=== PATIENT | male | born 1960 | race Caucasian/White ===

== ENCOUNTER 2024-01-17 17:54 | Inpatient (IN) | payer OTHER, SELFPAY ==
[2024-01-17] VITALS (23 sets, daily range): BP systolic 87–138; BP diastolic 52–92; BMI 31.1
--- NOTE | 2024-01-17 11:26 | ED.GENMED ---
History of Present Illness
<Kiana John PA-C - Last Filed: 01/17/24 15:13>
General
Chief Complaint: Skin Problem
Source: patient and records
Exam Limitations: none
Time Seen by Provider: 01/17/24 11:24
Nursing documentation reviewed up to this point in time: agreed with
Travel History
Have you had any contact with someone who has COVID-19?: No
Do you have any symptoms of coronavirus? Fever > 100 degrees, chills, cough, shortness of breath, sore throat, loss of taste or smell, muscle aches, or headache?: No
History of Present Illness
History of Present Illness:
63-year-old male with past medical history of deafness with cochlear implant in place presenting emergency department today with a boil on his buttocks for the past 7 days. Patient states that this past weekend, he felt a lot of pain on his
buttocks and noticed a large boil. Patient states that the pain has continued to worsen until the boil ruptured. Patient states that he started to have a lot of drainage from abscess. Patient states that he subsequently started using sitz bath to
help with his symptoms. He currently has no pain, but he does note decreased appetite and generalized fatigue. He denies any fevers or chills. Patient went to go see urgent care today and was evaluated by [facility] and was sent to us
for further evaluation considering the presence of necrotic tissue. Patient denies abdominal pain, notes normal bowel movements. Patient states that he has no other medical hx, is not a diabetic, and takes no medications daily.
Past History
<Kiana John PA-C - Last Filed: 01/17/24 15:13>
Past History
ED Past Medical History: None
ED Past Surgical History: Other (Cochlear implant)
Social History
Tobacco: Non-smoker
Alcohol: None
Drug: None
Personal:
Living: with family
Review of Systems
<Kiana John PA-C - Last Filed: 01/17/24 15:13>
Review of Systems
All Other Systems: ROS reviewed and negative except as documented in HPI and ROS
Phy Exam
<Kiana John PA-C - Last Filed: 01/17/24 15:13>
Physical Exam
Physical Exam:
Vitals: Patient is tachycardic, afebrile
General: Patient appears well, no acute distress
Skin: Large foul smelling open abscess noted to left gluteal cleft with surrounding erythema and overlying fatty necrotic tissue, active drainage of serosanguineous fluid noted, no active bleeding
Head: Normocephalic, atraumatic, cochlear implant noted
Cardiac: Regular rate and rhythm, no murmurs
Pulm: Normal respiratory effort, no wheezes, rales, or rhonchi
Abdomen: No abdominal tenderness
Genitourinary: Please see skin exam above. In addition, no gil-rectal masses or lesions, no rectal bleeding
Musculoskeletal: No tenderness to palpation of the b/l hip joints.
Neuro: CN II-XII intact. No focal neurologic deficits.
Course
<Kiana John PA-C - Last Filed: 01/17/24 15:13>
Orders/Labs/Results
Orders:
Orders
01/17/24 11:40
Bedside Glucose- Treatment ONCE
01/17/24 11:45
CT Pelvis With Iv Contrast Urgent
Comment:
Reason For Exam: tracking gluteal wound
01/17/24 12:10
C-Reactive Protein Urgent
Comment: ADD ON PER [id number]
CBC/With Diff [Complete Blood Count/With Diff] Stat
Comprehensive Metabolic Panel Urgent
Erythrocyte Sed Rate Stat
Manual Differential Stat
Wound Culture [Wound/Abscess/Other Culture] Urgent
KING Source: Abscess
Specimen Description:
Date Specimen was Collected: 01/17/24
Time Specimen was Collected: 11:42
01/17/24 13:16
Piperacillin/Tazo 4.5 Gram [Zosyn] 4.5 gram in 100 ml IV NOW
01/17/24 14:20
Vancomycin [Vancocin] 2,000 mg 0.9% Sodium Chloride 500 ml [Nss] 500 ml IV NOW
01/17/24 14:34
ColoRectal Surgery Consult Urgent
Consulting Provider: aDniel Jones
Was physician already notified: Yes
01/17/24 14:39
Blood Culture Q30M
KING Source: Blood/Venous
Specimen Description:
Blood Culture Q30M
KING Source: Blood/Venous
Specimen Description:
Abnormal Lab Results
01/17/24
12:10
WBC 24.7 H 10^3/uL
(4.8-10.8)
MPV 10.8 H fL
(7.4-10.4)
Abs Neuts (Manual) 22.4 H 10^3/uL
(1.4-6.5)
Segmented Neutrophils 80 H %
(42-75)
Band Neutrophils 11 H %
(0-3)
Lymphocytes (Manual) 1 L %
(20-51)
ESR 32 H mm/hour
(0-20)
Sodium 124 L mmol/L
(135-145)
Chloride 91 L mmol/L
(98-107)
Carbon Dioxide 21 L mmol/L
(22-30)
BUN 23 H mg/dl
(9-20)
Glucose 518 H* mg/dl
(70-99)
Alkaline Phosphatase 215 H U/L
(38-126)
C-Reactive Protein > 270.00 H mg/L
(0.0-10.00)
Total Protein 6.1 L g/dl
(6.3-8.2)
Albumin 3.3 L g/dl
(3.5-5.0)
01/17/24 12:10
01/17/24 12:10
Vital Signs
Initial and Last Documented VS:
Initial Vital Signs
Temp Pulse Resp BP Pulse Ox
98.5 F 120 18 132/92 96
01/17/24 10:12 01/17/24 10:12 01/17/24 10:12 01/17/24 10:12 01/17/24 10:12
Last Documented Vital Signs
Temp Pulse Resp BP Pulse Ox
98.5 F 120 18 132/92 96
01/17/24 10:12 01/17/24 10:12 01/17/24 10:12 01/17/24 10:12 01/17/24 10:12
<Robert Cardoso, DO - Last Filed: 01/17/24 14:10>
Orders/Labs/Results
Orders:
Orders
01/17/24 11:40
Bedside Glucose- Treatment ONCE
01/17/24 11:45
CT Pelvis With Iv Contrast Urgent
Comment:
Reason For Exam: tracking gluteal wound
01/17/24 12:10
C-Reactive Protein Urgent
Comment: ADD ON PER [id number]
CBC/With Diff [Complete Blood Count/With Diff] Stat
Comprehensive Metabolic Panel Urgent
Erythrocyte Sed Rate Stat
Manual Differential Stat
Wound Culture [Wound/Abscess/Other Culture] Urgent
KING Source: Abscess
Specimen Description:
Date Specimen was Collected: 01/17/24
Time Specimen was Collected: 11:42
01/17/24 13:16
Piperacillin/Tazo 4.5 Gram [Zosyn] 4.5 gram in 100 ml IV NOW
01/17/24 14:20
Vancomycin [Vancocin] 2,000 mg 0.9% Sodium Chloride 500 ml [Nss] 500 ml IV NOW
01/17/24 14:34
ColoRectal Surgery Consult Urgent
Consulting Provider: Daniel Jones
Was physician already notified: Yes
01/17/24 14:39
Blood Culture Q30M
KING Source: Blood/Venous
Specimen Description:
Blood Culture Q30M
KING Source: Blood/Venous
Specimen Description:
Abnormal Lab Results
01/17/24
12:10
WBC 24.7 H 10^3/uL
(4.8-10.8)
MPV 10.8 H fL
(7.4-10.4)
Abs Neuts (Manual) 22.4 H 10^3/uL
(1.4-6.5)
Segmented Neutrophils 80 H %
(42-75)
Band Neutrophils 11 H %
(0-3)
Lymphocytes (Manual) 1 L %
(20-51)
ESR 32 H mm/hour
(0-20)
Sodium 124 L mmol/L
(135-145)
Chloride 91 L mmol/L
(98-107)
Carbon Dioxide 21 L mmol/L
(22-30)
BUN 23 H mg/dl
(9-20)
Glucose 518 H* mg/dl
(70-99)
Alkaline Phosphatase 215 H U/L
(38-126)
C-Reactive Protein > 270.00 H mg/L
(0.0-10.00)
Total Protein 6.1 L g/dl
(6.3-8.2)
Albumin 3.3 L g/dl
(3.5-5.0)
01/17/24 12:10
01/17/24 12:10
Vital Signs
Initial and Last Documented VS:
Initial Vital Signs
Temp Pulse Resp BP Pulse Ox
98.5 F 120 18 132/92 96
01/17/24 10:12 01/17/24 10:12 01/17/24 10:12 01/17/24 10:12 01/17/24 10:12
Last Documented Vital Signs
Temp Pulse Resp BP Pulse Ox
98.5 F 120 18 132/92 96
01/17/24 10:12 01/17/24 10:12 01/17/24 10:12 01/17/24 10:12 01/17/24 10:12
<Kiana John PA-C - Last Filed: 01/17/24 15:13>
MDM/Problems Addressed
Differential Diagnosis Includes:
Cellulitis, folliculitis, gluteal abscess, anal fistula, Shilpa's gangrene, necrotizing fasciitis
MDM/Problems Addressed:
Rectal abscess
Chronic conditions affecting care:
deafness
Acute Exacerbation and/or Progression of Chronic Illness:
deafness
<Kiana John PA-C - Last Filed: 01/17/24 15:13>
*Pulse Oximetry
Patient hypoxic: no
*Critical Care Note
Total Time (30-74mins, 75-104mins- exclusive of procedures): Not Applicable
Data Reviewed
Review of Other/Old Records Reveals: Records (Reviewed ER physician documentation from 04/05/21) and Discharge Summary (no discharge summaries in [facility] to review)
Source: patient and records
Prescriptions/Medications Considered But Not Given:
Consider medication for pain, but patient comfortable at this time
<Kiana John PA-C - Last Filed: 01/17/24 15:13>
Patient Management
Escalation/DeEscalation of care consider admission/obs:
63-year-old male with past medical history of deafness with cochlear implant in place presenting emergency department today with a boil on his buttocks for the past 7 days. Patient states that the wound opened up and is no longer painful. On
physical exam, there is a large abscess to the left medial calf with surrounding erythema, overlying/of necrotic tissue that does not slough off with light pressure. Lab work was obtained which revealed newly diagnosed diabetes, significant
leukocytosis, elevated inflammatory markers. Ct of the pelvis reveals Symmetric skin thickening and rather extensive inflammatory stranding seen within the buttocks along the gluteal clefts with extensive subcutaneous emphysema with gas extending
inferiorly into the perineum. No discrete or drainable fluid collections appreciated. Findings concerning for extensive soft tissue infection, possibly necrotizing fasciitis/developing Shilpa gangrene. Colorectal surgery was consulted and
evaluated patient at bedside. Patient will be admitted to hospital for further management and possible surgical debridement. IV antibiotics started.
ED Attending Note
<Kiana John PA-C - Last Filed: 01/17/24 15:13>
-
Portions of this chart may have been created with voice recognition software.� Occasional wrong word or��sound alike� substitutions may have occurred due to the inherent limitations of voice recognition software.
<Robert Cardoso DO - Last Filed: 01/17/24 14:10>
ED Attending Note
Patient seen and examined by attending physician: Yes
I performed a history and physical exam of patient and discussed management with resident, I reviewed resident's note and agree with documented findings and plan of care.: Yes
ED Attending Note:
I have reviewed and agree with history and treatment plan by Kiana John. My exam revealed large abscess on left buttock with necrotic tissue. CT scan pending. IV Zosyn and vancomycin ordered.
Discharge Plan
Departure
Patient Disposition: Admit
Date of Disposition: 01/17/24
Time of Disposition: 14:27
Admit to: Med/Surg
Presentation/result/management discussed w/ accepting MD/DO: Hospitalist
Condition: Fair
Discharge Problem:
Gluteal abscess
Prescriptions:
No Action
Theragen Tablet
1 tab PO DAILY
ibuprofen [Advil] 200 mg Tablet
200 mg PO BIDPRN PRN (Reason: mild pain)
Referrals:
NONE,* [Family Provider] -
Interventions
Interventions:
*Risk Screen - Suicide Last Done: 01/17/24 11:24
*General Assessment Last Done: 01/17/24 11:24
*Neglect/Abuse Screening Last Done: 01/17/24 11:24
ED- Fall Risk Assessment Last Done: 01/17/24 11:24
*ED COVID-19 Vaccine History Last Done: 01/17/24 11:24
ED-Skin Assessment Last Done: 01/17/24 11:24
Discharge Date and Time
Print Language: MACEDONIAN
[2024-01-17 12:36] LABS: Hematocrit 39.6 % (39.0-52.0); Hemoglobin 14.1 g/dL (13.0-18.0); Mean Corp Hgb Conc. 35.6 g/dL (33.0-37.0); Mean Corpuscular Hgb 28.8 pg (27.0-31.0); Mean Platelet Volume 10.8 fL (7.4-10.4); Nucleated Red Blood Cells % 0 % (-); Platelet Count 322 10^3/uL (130-400); Red Blood Cell Count 4.89 10^6/uL (4.70-6.10); Red Cell Dist. Width 13.3 % (11.5-14.5); White Blood Cell Count 24.7 10^3/uL (4.8-10.8)
[2024-01-17 12:54] LABS: Potassium 3.7 mmol/L (3.5-5.1)
[2024-01-17 13:03] LABS: ALT (SGPT) 33 U/L (0-50); AST (SGOT) 27 U/L (17-59); Albumin 3.3 g/dl (3.5-5.0); Alkaline Phosphatase 215 U/L (38-126); Blood Urea Nitrogen 23 mg/dl (9-20); Calcium 8.9 mg/dl (8.4-10.2); Carbon Dioxide 21 mmol/L (22-30); Chloride 91 mmol/L (98-107); Estimated Creatinine Clearance 98 ml/min; Glucose 518 mg/dl (70-99); Sodium 124 mmol/L (135-145); Total Bilirubin 0.8 mg/dl (0.2-1.3); Total Protein 6.1 g/dl (6.3-8.2); eGFR > 60.00
[2024-01-17 13:07] LABS: Absolute Neutrophils -Man Diff 22.4 10^3/uL (1.4-6.5); Band Neutrophils 11 % (0-3); Lymphocytes 1 % (20-51); Segmented Neutrophils 80 % (42-75)
[2024-01-17 13:08] LABS: Eosinophils 1 % (0-6); Monocytes 7 % (2-9); Platelets Checked YES
[2024-01-17 13:09] LABS: Total Cells Counted 100
[2024-01-17 13:10] LABS: Macrocytosis FEW; Normal RBC Morphology No; Target Cells FEW; Tear Drop Red Blood Cells FEW
[2024-01-17 13:40] LABS: Erythrocyte Sed Rate 32 mm/hour (0-20)
[2024-01-17 14:24] LABS: C-Reactive Protein > 270.00 mg/L (0.0-10.00)
[2024-01-17] MEDS: ZOSYN 100 IV (14:38)
--- NOTE | 2024-01-17 15:17 | CON.CRS ---
Consultation
-
Date/Time Consultation Requested: 01/17/2024, 14:30
Date/Time Consultation Performed: , 14:45
Requesting Provider: Kiana John PA-C
Performing Provider: Daniel Jones MD
Reason for Consultation: gluteal abscess
Medical History
-
Chief Complaint: buttock wound
History of Present Illness:
63yo male with no PMH presents to the ER after noticing a buttock wound that started about seven days ago. Initially it started as a 'boil' and he felt worsening pain until it burst. He had had a lot of drainage from the abscess since this started
and has been doing Sitz baths at home. Currently he states he has no pain. He denies abdominal pain, fevers, or chills. His last bowel movement was three days ago. He admits to not wanting to eat much since this started. He went to urgent care today
and was sent to the ER due to worry of necrosis.
In the ER his WBC is 24.7. His heart rate is 120. He is hyponatremic with a sodium of 124. His glucose is 518 (although he denies a PMH of DM) CT A/P shows symmetric skin thickening and rather extensive inflammatory stranding seen within the
buttocks along the gluteal clefts with extensive subcutaneous emphysema with gas extending inferiorly into the perineum. No discrete or drainable fluid collections appreciated. Findings concerning for extensive soft tissue infection, possibly
necrotizing fasciitis/developing Shilpa gangrene. We have been consulted for further surgical opinion.
Past Medical History
Past Medical History: None and Other
Past Surgical History: Other (cochlear implant )
Social History
Tobacco: Non-Smoker
Alcohol: None
Drug: None
Family History
Family History: Reviewed & Not Pertinent
Allergies / Home Medications
Allergy/AdvReac Type Severity Reaction Status Date / Time
No Known Allergies Allergy Unverified 04/05/21 08:12
�Medication �Instructions �Recorded �Confirmed �Type
ibuprofen 200 mg tablet (Advil) 200 mg PO BIDPRN PRN mild pain 01/17/24 01/17/24 History
therapeutic multivitamin 1 tab PO DAILY 01/17/24 01/17/24 History
Review of Systems
-
History Source: Patient
Skin: Other (boil on left buttock)
A 10 point review of systems was completed, and was negative except as per HPI.
Physical Exam
Vital Signs
Temp 98.5 F 01/17/24 10:12
Pulse 120 01/17/24 10:12
Resp Rate 18 01/17/24 10:12
Blood pressure 132/92 01/17/24 10:12
SaO2 96 01/17/24 10:12
01/16/24 01/17/24 01/18/24
06:59 06:59 06:59
Actual Weight 106.9 kg
Body Mass Index (BMI) 31.1
Lab Results / Allergies
01/17/24 12:10
01/17/24 12:10
WBC 24.7 10^3/uL (4.8-10.8) H 01/17/24 12:10
Hgb 14.1 g/dL (13.0-18.0) 01/17/24 12:10
Hct 39.6 % (39.0-52.0) 01/17/24 12:10
Plt Count 322 10^3/uL (130-400) 01/17/24 12:10
Allergy/AdvReac Type Severity Reaction Status Date / Time
No Known Allergies Allergy Unverified 04/05/21 08:12
Physical Exam
General: Well Developed, Well Nourished and No Apparent Distress
GI: Soft, Non Tender and Non Distended
Rectal: Other (large necrotic appearing wound on left buttock with foul odor, surrounded by erythema, serosanguinous drainage, no active bleeding)
Skin: Warm and Dry
Neuro: AO x 3
Psych: Calm
Data Reviewed
-
CT Scan: Image Personally Visualized and interpreted, Report Reviewed by me and Discussed with Patient
Labs: Labs Reviewed by me, Discussed with Physician and Discussed with Family
Old Records: Reviewed
Assessment / Plan
-
Assessment: 63yo male with a one week history of a gluteal abscess presents to the ER from urgent care, found to have extensive subcutaneous emphysema with gas extending inferiorly into the perineum, concerning for extensive soft tissue infection,
possibly necrotizing fasciitis/developing Shilpa gangrene on CT
Plan:
Patient will go to the OR this afternoon for an exam under anesthesia, I+D, and debridement. I will have wound RN silvana him for an ostomy depending on findings. Remain NPO. Stat coags and type and screen ordered. TEDS/SCDS for OR. Continue
antibiotics. Will need medicine for glucose control. Discussed with patient and at bedside.
[2024-01-17] MEDS: VANCOCIN 540 MG IV (15:26)
[2024-01-17] MEDS: NSS 1000 IV ×2 (15:27→20:25)
--- NOTE | 2024-01-17 15:44 | WOUNDNOTE ---
[facility] RN note: Patient for surgery today. BATSHEVA Hamilton requested bilateral stoma nieves. Patient is unable to lie on his back d/t perirectal pain. He's been lying prone for the last 2 days as per patient and . Stoma marked patient in sitting
and standing position in upper quadrants over the rectus muscle avoiding skin creases. Patient instructed skin creases can occur with the surgery itself and the surgeon makes the final decision with stoma placement. Patient is high risk for pouch
leaking d/t body habitus. LUQ stoma silvana 7.3cm to L of midline and 1.4cm above umbilical line. RUQ stoma silvana 7cm to R of midline and 2.8cm above umbilical line.
[2024-01-17 16:09] LABS: Glucose - Point of Care 465 mg/dl (70-99)
--- NOTE | 2024-01-17 16:10 | PTCARENOTE ---
Glucose reading high, per protocol will draw a stat glucose
--- NOTE | 2024-01-17 16:10 | HPS.HSE ---
Family Physician
-
Family Physician: * NONE
Chief Complaint
-
gluteal abscess
History of Present Illness
63 y/o M presents to ER For buttock wound. He reports it started 7 days ago; initially as a boil. He felt increasing pain until it burst on its own. He reports significant drainage and has been doing Sitz baths at home. No pain presently. No
fever/chills. No abd pain. Last BM 3 days ago. Reports poor appetite.
in ER, in sepsis also with sodium 124. Glucose 518
Medical History
Past Medical History
Past Medical History: Reports None
Past Surgical History: Reports Other (cochlear implant)
Social History
Tobacco: Non-smoker
Alcohol: None
Drug: None
Personal:
Living: With Family
Family History
Family History: Not pertinent
Allergies / Home Medications
Allergies reflects when Allergies were last updated in [facility].
Home Medications with original date entered in [facility]
Allergy/Medication List:
Allergies
Allergy/AdvReac Type Severity Reaction Status Date / Time
No Known Allergies Allergy Unverified 04/05/21 08:12
Home Medications
ibuprofen 200 mg tablet (Advil) 200 mg PO BIDPRN PRN mild pain 01/17/24
therapeutic multivitamin 1 tab PO DAILY 01/17/24
Review of Systems
-
A 12 point ROS was completed and negative except as noted: Yes
Physical Exam
Vital Signs
Vital Signs
Temp Pulse Resp BP Pulse Ox
98.5 F 115 18 134/86 94
01/17/24 10:12 01/17/24 15:33 01/17/24 10:12 01/17/24 15:33 01/17/24 15:33
Physical Exam
General: Well Developed and Well Nourished
HEENT: NormoCephalic, Anicteric and Other (cochlear implant)
Respiratory: Clear; No Wheezes or Rales
Cardiac: S1/S2 and Regular Rhythm
GI: Soft, Non Tender and Other (large necrotic appearing wound on left buttock with foul odor, surrounded by erythema, serosanguinous drainage, no active bleeding)
Neuro: AO x 3
Hematologic/Lymphatic: No Lymphadenopathy
Psych: Calm
Laboratory Results
-
01/17/24 12:10
Laboratory Results
Total Bilirubin 0.8 mg/dl (0.2-1.3) 01/17/24 12:10
AST 27 U/L (17-59) 01/17/24 12:10
ALT 33 U/L (0-50) 01/17/24 12:10
Alkaline Phosphatase 215 U/L (38-126) H 01/17/24 12:10
Data Reviewed
-
CT Scan: Report Reviewed by me, Discussed with Patient and Discussed with Family
Lab Data: Labs Reviewed by me, Discussed with Patient and Discussed with Family
Impression/Plan
-
Assessment:
Gluteal abscess
- CT: Symmetric skin thickening and rather extensive inflammatory stranding seen within the buttocks along the gluteal clefts with extensive subcutaneous emphysema with gas extending inferiorly into the perineum. No discrete or drainable fluid
collections appreciated. Findings concerning for extensive soft tissue infection, possibly necrotizing fasciitis/developing Shilpa gangrene.
- CRS consulted; for I&D today
- IVF
- Vanco/Zosyn, day 1; await operative cultures. Follow blood cultures.
- pain control
Hyponatremia, pseudohyponatremia from Hypoglycemia
- IVF aggressively
- add SSI, moderate
- check A1c
- no formal DM diagnosis
Hx of cochlear implants
DVT ppx: SCDs
Code: Full
[2024-01-17 16:42] LABS: Glucose 484 mg/dl (70-99)
--- NOTE | 2024-01-17 18:43 | W.IMMPOSTOP ---
Surgical Immed Post Op Note
-
Primary Surgeon: Daniel Jones MD
Assisting Surgeon: None
Pre-op Diagnosis: Necrotizing soft tissue of the perineum
Post-op Diagnosis: Necrotizing soft tissue of the perineum
Procedure Performed: Flexible sigmoidoscopy, exam under anesthesia, incision and drainage of left gluteal abscess, extensive debridement of necrotic tissue, pulse irrigation
Anesthesia Type: Sedation for flexible sigmoidoscopy, general for the remainder
Specimen / Cultures: Left gluteal abscess sent for pathology, left gluteal abscess sent for aerobic and anaerobic culture
Estimated Blood Loss: 20 mL
Complications: None
Operative Findings: Began procedure with a flexible sigmoidoscopy; advanced the sigmoidoscope to 15 cm before encountering hard stool precluding visualization; mucosa from 15 cm and distal was pink and healthy without any evidence of ischemia or
inflammation; the patient was then intubated by anesthesia and placed in prone position on the OR table; injected about 20mL of 0.25% marcaine with dexamethasone in a perianal field block; left gluteal patch of necrotic skin about 3 cm x 4 cm;
18-gauge needle was inserted into cavity and aspirated for culture; excised necrotic pedicle of skin and probed the cavity; significant amount of necrotic tissue was sharply debrided with Farmer scissors back to healthy tissue; encountered the
external anal sphincter in the left posterior position and took care to avoid significant injury; necrotic tissue extended from left lateral aspect of anal canal, wrapped around posteriorly and extended to the right lateral aspect encompassing about
180 degrees of the posterior anal canal; after debridement of all necrotic tissue back to healthy bleeding subcutaneous fat; the wound was pulse lavaged for 5 minutes; hemostasis was achieved; the wound was packed with 3 inch Kerlix soaked in
Betadine; size of wound was 4 cm x 5 cm, 4 to 5 cm deep and several centimeters of undermining circumferentially; surrounding wound erythema was marked with a marking pen for a baseline to aid with further assessment on the floor
[2024-01-17 18:51] LABS: Glucose - Point of Care 480 mg/dl (70-99)
[2024-01-17 19:24] LABS: Glucose 445 mg/dl (70-99)
[2024-01-17 19:30] LABS: APTT 31.3 Sec (23.4-35.0); INR 1.38; PT 16.8 Sec (11.4-14.6)
--- NOTE | 2024-01-17 19:30 | PHA.VAN.IN ---
Assessment
- Assessment
Renal Function: Appears similar to baseline
Concomitant Antimicrobials: ZOSYN
- Previous Dosing Experience
Previous Regimen: NONE
AUC Dosing Plan
- Dosing Variables
Dosing Weight (kg): 106.9
Dosing CrCl (ml/min): 98
Vd coefficient (L/kg): 0.6
- Empiric Dosing
Initial / Loading Dose: 2GM
Maintenance Regimen: 750MG IV Q12H
Estimated AUC (mcg*h/mL): 490
Estimated Peak (mcg*h/mL): 31.4
Estimated Trough (mcg/ml): 12.2
Estimated Half Life (H): 8.1
Pharmacokinetics Vancomycin I
- -
Patient Age: 63
Patient Sex: Male
Vancomycin Day #: 1
Indication: Skin And Soft Tissue (GLUTEAL ABSCESS)
Requesting Provider: KEYA
Height / Weight:
Height 6 ft 1 in
Actual Weight 106.9 kg
Pertinent Past Medical History: NEW IDDM
- Vital Signs / Lab Results
Temp Pulse Resp BP Pulse Ox
98.5 F 88 18 137/88 100
01/17/24 10:12 01/17/24 19:15 01/17/24 10:12 01/17/24 19:15 01/17/24 19:15
Lab Results - Hematology
01/17/24
12:10
WBC 24.7 H
Band Neutrophils 11 H
Lab Results - Chemistry
01/17/24
12:10
BUN 23 H
Creatinine 1.0
Estimated Creat Clear 98
Albumin 3.3 L
Microbiology Results
01/17/24 17:17 Gram Stain - Preliminary
Abscess
01/17/24 12:10 Gram Stain - Preliminary
Abscess
[2024-01-17] MEDS: DILAUDID 0.5 MG IV (19:40)
[2024-01-17] MEDS: NOVOLOG vial 10 UNITS SC (19:42)
--- NOTE | 2024-01-17 20:27 | OR.RPT ---
Operative Report
Operative Report
DATE OF OPERATION: 01/17/2024
SURGEON: Daniel Jones MD
PREOPERATIVE DIAGNOSIS: Necrotizing soft tissue infection of the perineum
POSTOPERATIVE DIAGNOSIS: Same
OPERATION: Flexible sigmoidoscopy, exam under anesthesia, incision and drainage of left gluteal abscess, extensive debridement of necrotic tissue, pulse irrigation
ASSISTANTS:
1. None
ANESTHESIA: Sedation for flexible sigmoidoscopy, general anesthesia for remainder of procedure
ESTIMATED BLOOD LOSS: 20 mL
FINDINGS:
1. Left gluteal cavity with necrotic tissue, aspirated with 18-gauge and sent for culture
2. Necrotic tissue involved 180 degrees of the posterior perineum, posterior to the anus; area debrided and pulse irrigated; packed with Betadine-soaked Kerlix
SPECIMENS:
1. Left gluteal abscess
2. Left gluteal abscess cultures
DRAINS: N/A
COMPLICATIONS: None
INDICATIONS: The patient is a 63-year-old male who presented with 7 days of a worsening left gluteal pustule. He went to the urgent care this morning, who evaluated him and recommended going directly to the ED. In the ED, his WBC was [address]
scan showed subcutaneous emphysema extending into the posterior perineum. His glucose was 514 and he was tachycardic to 120, but normotensive. Therefore, the patient was recommended to have urgent surgery. The operation was discussed with the
patient and in detail, including the risks, benefits and alternatives. Risks described included, but not limited to bleeding, infection, damage to nearby structures (such as the anal sphincter, nerves, blood vessels, rectum), hemodynamic
compromise during surgery, prolonged intubation, repeated procedures for infection control, possible ostomy if involvement of the anorectum discovered and anesthetic risks. The patient understood and agreed to proceed. The consent was signed and
placed in the chart.
PROCEDURE IN DETAIL: The patient was taken to the operating room and placed in the right lateral decubitus position on his hospital bed. A timeout was performed verifying the correct patient, procedure, operative site, positioning and special
equipment. Sedation was commenced without complication. I performed a flexible sigmoidoscopy. I first performed a digital rectal exam. There were no palpable masses, no gross blood and no evidence of fluctuance along the anal canal. The
sigmoidoscope was then inserted transanally and advanced to about 15 cm, where I encountered copious solid stool. I then withdrew evaluating the mucosa which was visible circumferentially. The rectal mucosa appeared healthy without any evidence of
ischemia, ulceration or inflammation. The sigmoidoscope was then removed. The patient was placed in supine position. General anesthesia was induced and the patient was intubated without complication. The patient was then placed in prone position
on the operating room table. Both arms were secured to arm boards in superman position. Pressure points were padded with pillows. 2 seatbelts were secured around the legs and upper back. The perineum was then shaved, prepped and draped in a
sterile fashion.
Local anesthesia used was a mixture of 20 mL of 0.25% Marcaine without epinephrine (with epinephrine was on backorder) and 0.2 mg of dexamethasone. This was injected subcutaneously at a distance from the visible erythema for a general field block
of the perineum. There was a necrotic patch of tissue on the left buttock in the left posterior region from the anus, about 3 cm x 4 cm in size. The surrounding skin was indurated and not fluctuant. An 18-gauge needle with 10 cc syringe was
advanced into the necrotic cavity and aspirated. 2 to 3 mL of necrotic/murky fluid was aspirated and sent for anaerobic and aerobic culture. Then, the skin around the patch of necrotic tissue was excised circumferentially using Bovie
electrocautery. The necrotic tissue was grasped with Allis clamps and excised with Farmer scissors down to healthy bleeding tissue. The necrotic tissue was found to extend posteriorly to the anus and to the right lateral region of the anus. It also
extended to the edge of the external anal sphincter. Care was taken to avoid injury to the external anal sphincter while debriding necrotic tissue. Hemostasis was assured with electrocautery. The necrotic tissue involved about 180 degrees of the
posterior anorectal complex. After all necrotic tissue was excised, the wound was pulse lavaged for 5 minutes. The wound was closely evaluated for any further necrotic tissue and hemostasis was assured. The final wound measured 4 cm x 5 cm,
extending about 4 to 5 cm deep. The wound was undermined by 2 to 3 cm under the skin circumferentially, but the overlying skin was healthy. The wound was then packed with one 3 inch kerlix that was soaked in Betadine. A marking pen was used to
silvana out the surrounding cutaneous erythema for a baseline.
At this point, the procedure was complete. All needle, sponge and instrument counts were correct. The patient tolerated the procedure well and was transferred to the recovery room in stable condition with gauze dressing in place secured with silk
tape.
DICTATED BY: Daniel Jones MD
[2024-01-17] MEDS: TYLENOL 1000 MG PO (20:39)
[2024-01-17] MEDS: TORADOL 15 MG IV (20:40)
[2024-01-17] MEDS: ZOSYN 50 IV (20:42)
--- NOTE | 2024-01-17 21:30 | PTCARENOTE ---
Patient received from PACU, AAOX3, pleasant, offers no complaints. SAUK-[place]IATTLE bilaterally. NSR on monitor, afebrile, blood pressure as documented. Palpable pulses throughout, no edema noted. Bilateral knee high teds and SCDs maintained. Lungs
diminished bilaterally, pulse ox 96% on 2L. Abdomen round with positive bowel sounds. Voiding yellow urine. #20 g in left wrist flushed and patent. Gluteal packing intact, local erythema noted. Plan of care discussed, call dowell within reach
--- NOTE | 2024-01-17 21:30 | SUR.PHASEI ---
patient in pacu post op with high glucose, labs drawn, dr madsen updated and orders received, dressing reinforced for betadine and minimal drainage, mesh pants on. skin temp hot, oral and temporal temperatures checked, medicated for pain with
relief. fluid given IV per anesthesia and patient able to void in urinal prior to discharge. patient's updated and visits and patient transferred to ICCU
[2024-01-17] MEDS: NSS IV (21:53)
[2024-01-17 23:03] LABS: Glucose - Point of Care 428 mg/dl (70-99)
--- NOTE | 2024-01-17 23:21 | PTCARENOTE ---
Patients blood sugar noted, notified [facility] VALENCIA, labs sent, orders received. Patient updated on plan of care
[2024-01-17 23:40] LABS: Blood Urea Nitrogen 28 mg/dl (9-20); Carbon Dioxide 22 mmol/L (22-30); Chloride 94 mmol/L (98-107); Estimated Creatinine Clearance 98 ml/min; Glucose 408 mg/dl (70-99); Potassium 3.3 mmol/L (3.5-5.1); Sodium 127 mmol/L (135-145); eGFR > 60.00
[2024-01-18] VITALS (16 sets, daily range): BP systolic 97–135; BP diastolic 56–85; BMI 31.3
[2024-01-18] MEDS: NOVOLIN R INSULIN INFUSION 100 IV (00:18)
[2024-01-18] MEDS: NOVOLIN R 10 UNITS IV (00:20)
[2024-01-18] MEDS: KCL 270 MEQ IV ×2 (00:40→12:56)
--- NOTE | 2024-01-18 00:46 | PTCARENOTE ---
Labs noted, insulin gtt and K janet hung
[2024-01-18 01:24] LABS: Glucose - Point of Care 362 mg/dl (70-99)
[2024-01-18] MEDS: TORADOL 15 MG IV ×4 (02:09→19:50)
[2024-01-18] MEDS: ZOSYN 50 IV ×4 (02:09→19:50)
[2024-01-18] MEDS: TYLENOL 1000 MG PO ×4 (02:09→19:51)
[2024-01-18 02:23] LABS: Glucose - Point of Care 289 mg/dl (70-99)
[2024-01-18 03:26] LABS: Glucose - Point of Care 251 mg/dl (70-99)
--- NOTE | 2024-01-18 04:15 | PTCARENOTE ---
Patient reassessed, offers no complaints, blood sugars improving, labs sent. No changes in assessment
[2024-01-18 04:30] LABS: Glucose - Point of Care 177 mg/dl (70-99)
[2024-01-18 04:58] LABS: Hematocrit 34.4 % (39.0-52.0); Hemoglobin 12.2 g/dL (13.0-18.0); Mean Corp Hgb Conc. 35.5 g/dL (33.0-37.0); Mean Corpuscular Hgb 28.8 pg (27.0-31.0); Mean Corpuscular Volume 81.1 fL (80.0-94.0); Mean Platelet Volume 11.1 fL (7.4-10.4); Platelet Count 282 10^3/uL (130-400); Red Blood Cell Count 4.24 10^6/uL (4.70-6.10); Red Cell Dist. Width 13.4 % (11.5-14.5); White Blood Cell Count 21.4 10^3/uL (4.8-10.8)
[2024-01-18 05:22] LABS: Blood Urea Nitrogen 30 mg/dl (9-20); Calcium 8.2 mg/dl (8.4-10.2); Carbon Dioxide 25 mmol/L (22-30); Chloride 98 mmol/L (98-107); Estimated Creatinine Clearance 99 ml/min; Glucose 167 mg/dl (70-99); Potassium 3.7 mmol/L (3.5-5.1); Sodium 131 mmol/L (135-145); eGFR > 60.00
[2024-01-18] MEDS: NSS 1000 IV ×2 (05:29→18:00)
[2024-01-18] MEDS: NSS IV (05:30)
[2024-01-18 05:35] LABS: Glucose - Point of Care 173 mg/dl (70-99)
[2024-01-18] MEDS: VANCOCIN 150 IV (06:18)
--- NOTE | 2024-01-18 07:16 | CON.INTV ---
Addendum entered and electronically signed by Uma Watters MD 01/18/24 14:58:
Patient transferred out of ICU. We will sign off. Please call with questions
Original Note:
Consultation
Consultation Request
Date/Time Consultation Requested: 01/18/24
Date/Time Consultation Performed: 01/18/24
Reason for Consultation: Critical care
Medical History
-
History of Present Illness:
History obtained from the chart and from the patient. 63-year-old male who does not see a physician, last saw 7 years ago, developed a boil on his buttocks about 1 week ago. Symptoms progressed to the point where he could not sit, had to lie on
his stomach. Patient denies any fevers, chills, chest pain, shortness of breath, abdominal pain, nausea. He was seen in urgent care, told to come to [facility] emergency room where upon arrival afebrile, pulse 120, breathing at 18, blood pressure
132/92, 96%. He was given Zosyn/vancomycin, colorectal surgery was consulted. Patient was taken to the OR for necrotizing soft tissue of the perineum. Patient underwent flexible sigmoidoscopy, incision and drainage of left gluteal abscess and
debridement of extensive necrotic tissue. Patient was admitted to ICU thereafter.
Presently, patient is feeling well. He has no symptoms. Elevated blood sugars noted, requiring insulin drip. Patient unaware of history of diabetes
Patient walks regularly without limitations
.
PMH: Cochlear implants. Newly diagnosed diabetes on current admission
Past Medical History
Past Medical History: None (See above)
Past Surgical History: None (See above)
Social History
Tobacco: Non-smoker
Alcohol: Occasional
Drug: None
Personal:
Living: With Family
Family History
Family History: Reviewed & Not Pertinent
Allergies / Home Medications
Allergies
Allergy/AdvReac Type Severity Reaction Status Date / Time
No Known Allergies Allergy Unverified 04/05/21 08:12
Home Medications
�Medication �Instructions �Recorded �Confirmed �Last Taken �Type
ibuprofen 200 mg tablet (Advil) 200 mg PO BIDPRN PRN mild pain 01/17/24 01/17/24 01/17/24 History
therapeutic multivitamin 1 tab PO DAILY 01/17/24 01/17/24 Unknown History
Review of Systems
-
All other systems: Negative unless noted
Vitals / Labs / Diagnostic Testing
Vital Signs
Temp Pulse Resp BP Pulse Ox
99.1 F 62 12 103/72 95
01/17/24 23:02 01/18/24 05:00 01/18/24 05:00 01/18/24 05:00 01/18/24 05:00
Lab Data
01/18/24 04:18
01/18/24 04:18
Laboratory Results
01/17/24
19:14
PT 16.8 H
INR 1.38
APTT 31.3
Microbiology
01/17/24 17:17 Abscess Gram Stain - Preliminary
01/17/24 12:10 Abscess Gram Stain - Preliminary
Diagnostic Testing:
Physical Exam
-
HEENT: Normocephalic and Anicteric
Cardiovascular: S1/S2, Regular Rhythm, Murmur (n), Rub (n), Peripheral Edema (n) and Calf Tenderness (Sequential teds)
Respiratory: Wheeze (n), Rales (n), Rhonchi (n), Non-Labored Respirations and Other (Decreased breath sounds right base)
GI: Soft, Non Distended and Non Tender
Neurology: Awake, Alert, Oriented and No Motor Deficits (Able to sit up without assistance)
Skin: Good Color and Other (Did not examine perineum)
General: Comfortable
Assessment
-
63-year-old male without medical history, developed boil on buttocks for 1 week, progressed to the point where prompted ED visit, found to have gluteal abscess requiring I&D, flexible sigmoidoscopy. Patient given IV antibiotics, admitted to ICU.
Required IV insulin drip due to significantly elevated blood sugars. Admitted to ICU
Left gluteal abscess/boil
Requiring incision and drainage, necrotic tissue in OR 01/17/2024
Newly diagnosed diabetes
requiring insulin drip
Leukocytosis
Hyponatremia
Elevated right hemidiaphragm, chronic
Nephrolithiasis per prior imaging
Suspected sleep disordered breathing
Plan/recommendations
At this time, patient remains critically ill but appears to be nontoxic-appearing
Blood pressures have been adequate
Reviewed intraoperative findings, colorectal correspondence
Patient continues with IV fluids. Remains on Zosyn/vancomycin
Remains on insulin drip at this time
Moving forward
Continue with supportive care, IV fluids, broad-spectrum antibiotics
Cultures pending
Colorectal surgery following
Currently on normal saline
Admission sugars 480, decreased to 180
There is no anion gap
Transition fluids to D5/normal saline
Replete electrolytes
Reassess following treatment of infection regarding insulin requirements
Sliding scale will continue
Check hemoglobin A1c
Incentive spirometry
DVT prophylaxis: Remains on Lovenox
Discussed importance of primary care follow-up
Patient also at risk for sleep disordered breathing
Reviewed with critical care nursing
Will follow
TCCT 31 min
[2024-01-18 07:41] LABS: Glucose - Point of Care 181 mg/dl (70-99)
[2024-01-18 08:28] LABS: Glycohemoglobin (HgbA1c) 14.2 % (4.0-5.6)
[2024-01-18 08:42] LABS: Glucose - Point of Care 89 mg/dl (70-99)
--- NOTE | 2024-01-18 09:48 | PTCARENOTE ---
Patient received this am.Assessment as documented. Denies pain at this time. Denies SOB. Lungs clear. O2 2L NC. Urinating small amounts of urine in urinal. AM care completed. Buttocks dressing with Betadine intact. Encourage to stay off wound.
[2024-01-18] MEDS: NOVOLOG FLEXPEN 4 UNITS SC (10:32)
--- NOTE | 2024-01-18 10:37 | W.PN.GS2 ---
Addendum entered and electronically signed by Giovanni Hernandez MD 01/18/24 13:33:
I saw and examined the patient independently.
The Supply Assistant's note was reviewed and I agree with the note, assessment and plan except where noted below.
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
Wound repacked at bedside. There is involvement of the anal sphincter.
Okay for diabetic diet.
Please place a commode for the patient. If he is able to maintain continence, may be able to avoid a diverting stoma though given the extent and proximity of the wound, the patient understands this will be a prolonged healing process. He is
amenable to an ostomy if needed.
Will reexamine patient in the morning, possible OR tomorrow versus Saturday.
Continue antibiotics
Continue diabetic management per primary.
Please change packing twice daily and as needed after stooling.
Original Note:
Today's Communication / Plan
-
Tentative OR in AM
Local wound care
Assessment / Plan
-
63 yo male with uncontrolled DM with necrotizing soft tissue of the perineum
POD #1 flexible sigmoidoscopy, exam under anesthesia, incision and drainage of left gluteal abscess, extensive debridement of necrotic tissue, pulse irrigation
AFVSS
Leukocytosis present, slight downtrend
Mild acute anemia present, likely due to hemodilution with fluid boluses. Operative blood losses were minimal.
Would benefit from diverting ostomy, he will consider this.
--Tentative OR in AM for repeat washout, will make NPO after MN
--Continue local wound care
--Continue ABX, Blood culture and OR wound cultures pending
--Insulin gtt/Diabetic management as per primary team
Subjective Data
-
Date of Service: January 18, 2024
Patient seen and examined at bedside. Reports pain of about 1/10 to sacral area but much better than prior to surgery.
Objective Data
-
Intake and Output
01/17/24 01/18/24 01/19/24
06:59 06:59 06:59
Intake Total 2894 / 3001 364.4 / 364.4
Output Total 600 / 600 100 / 100
Balance 2294 / 2401 264.4 / 264.4
Intake:
Oral fluids 1060 / 1060
IV fluids (Total) 1514 / 1621 314.4 / 314.4
Insulin 64 / 71 14.4 / 14.4
Nss 1,000 ml @ 100 mls/hr IV . 900 / 1000 300 / 300
Q10H DOROTHY Rx#:[id number]
normosol 400 / 400
nss 100 / 100
zosyn 50 / 50
IV piggybacks 320 / 320 50 / 50
Output:
Urine, Voided 600 / 600 100 / 100
Vital Signs
Temp Pulse Resp BP Pulse Ox
98.2 F 77 15 120/75 96
01/18/24 08:14 01/18/24 09:00 01/18/24 09:00 01/18/24 09:00 01/18/24 09:37
Lab Results
01/18/24 04:18
Calcium 8.2 mg/dl (8.4-10.2) L 01/18/24 04:18
Total Bilirubin 0.8 mg/dl (0.2-1.3) 01/17/24 12:10
AST 27 U/L (17-59) 01/17/24 12:10
ALT 33 U/L (0-50) 01/17/24 12:10
Alkaline Phosphatase 215 U/L (38-126) H 01/17/24 12:10
Total Protein 6.1 g/dl (6.3-8.2) L 01/17/24 12:10
Albumin 3.3 g/dl (3.5-5.0) L 01/17/24 12:10
Physical Exam
-
NAD
ABD soft/nt
Packing changed. Wound just above the anus, bed clean, slight purulence at base of wound. Tunnels around sphincter.
[2024-01-18 10:42] LABS: Glucose - Point of Care 202 mg/dl (70-99)
[2024-01-18 10:46] LABS: Blood Urea Nitrogen 32 mg/dl (9-20); Calcium 7.9 mg/dl (8.4-10.2); Carbon Dioxide 25 mmol/L (22-30); Chloride 99 mmol/L (98-107); Estimated Creatinine Clearance 110 ml/min; Glucose 78 mg/dl (70-99); Potassium 3.2 mmol/L (3.5-5.1); Sodium 133 mmol/L (135-145); eGFR > 60.00
[2024-01-18] MEDS: ROXICODONE 5 MG PO (10:50)
[2024-01-18 11:40] LABS: Glucose - Point of Care 204 mg/dl (70-99)
--- NOTE | 2024-01-18 12:32 | PHA.VAN.FU ---
Vancomycin Assessment / Plan
- Assessment
Renal Function: SCR Decreasing (1.0>0.9)
WBC's are: Trending Down (24.7>21.4)
In the past 24 hrs, patient has been: Afebrile
Concomitant Antimicrobials: Piperacillin-tazobactam
- Dosing Plan
Adjust Regimen to: Vancomycin 1250mg IV Q12hrs
New Regimen Predicts: AUC (471), Peak (30), Trough (12)
Dosing Comments: Vd coefficient=0.6, T1/2=8
- Monitoring Plan
No level(s) ordered at this time: Will order levels according to vancomycin dosing protocol
- Follow Up
Pharmacy will continue to follow.
Vancomycin Follow UP
- -
Patient Age: 63
Patient Sex: Male
Vancomycin Day #: 2
Indication: Skin And Soft Tissue (GLUTEAL ABSCESS)
Requesting Provider: KEYA
Pertinent Antimicrobial Allergies:
No antibiotic allergies
Height / Weight:
Height 6 ft 1 in
Actual Weight 107.6 kg
IBW in k.9
Adjusted BW in k
Pertinent Past Medical History: NEW IDDM, BMI~31
- Vital Signs / Lab Results
Temp Pulse Resp BP Pulse Ox
98.8 F 77 15 120/75 96
01/18/24 12:14 01/18/24 09:00 01/18/24 09:00 01/18/24 09:00 01/18/24 09:37
Lab Results - Hematology
01/17/24 01/18/24
12:10 04:18
WBC 24.7 H 21.4 H
Band Neutrophils 11 H
Lab Results - Chemistry
01/17/24 01/17/24 01/18/24
12:10 23:17 04:18
BUN 23 H 28 H 30 H
Creatinine 1.0 1.0 1.0
Estimated Creat Clear 98 98 99
Albumin 3.3 L
01/18/24
08:35
BUN 32 H
Creatinine 0.9
Estimated Creat Clear 110
Albumin
Microbiology Results
01/17/24 12:10 Wound Culture - Preliminary
Abscess Gram Stain - Preliminary
01/17/24 17:17 Gram Stain - Preliminary
Abscess
[2024-01-18] MEDS: LANTUS 0.100000000000000006 UNITS SC ×2 (12:55→21:43)
[2024-01-18 13:03] LABS: Glucose - Point of Care 191 mg/dl (70-99)
--- NOTE | 2024-01-18 13:19 | PTCARENOTE ---
Wound care done by surgeonPatient states he discussed the possibility of a colostomy and that he is agreeable in order to improve healing of his wound. [employer] aware.
[2024-01-18] MEDS: NOVOLOG FLEXPEN 5 UNITS SC ×2 (13:53→18:02)
[2024-01-18] MEDS: NOVOLOG FLEXPEN SC (13:54)
[2024-01-18 14:03] LABS: Glucose - Point of Care 206 mg/dl (70-99)
--- NOTE | 2024-01-18 14:11 | W.PN.HOSP.TC ---
Today's Communication/Plan
-
transition to SC insulin
IV Abx
NPO p MN for possible OR tomorrow
Assessment / Plan
Assessment / Plan
Assessment:
Gluteal abscess
- CT: Symmetric skin thickening and rather extensive inflammatory stranding seen within the buttocks along the gluteal clefts with extensive subcutaneous emphysema with gas extending inferiorly into the perineum. No discrete or drainable fluid
collections appreciated. Findings concerning for extensive soft tissue infection, possibly necrotizing fasciitis/developing Shilpa gangrene.
- s/p Flexible sigmoidoscopy, exam under anesthesia, incision and drainage of left gluteal abscess, extensive debridement of necrotic tissue, pulse irrigation
- follow surgical recs. Ok for diet today. NPO p MN for possible further surgery tomorrow including possibly ostomy to facilitate healing
- continue IVF
- continue Vanc/Zosyn, day 2. operative cultures so far growing GNB. follow blood cultures
- pain control
Hyponatremia, pseudohyponatremia from Hypoglycemia
HHNK
- s/p Insulin infusion
- A1c is 14
- start basal bolus
- start SSI
- FAST FOOD CREW MEMBER and educator consults placed
Hx of cochlear implants
DVT ppx: SCDs
Code: Full
Total Critical Care Time 41 minutes. I was immediately available to the patient and staff. I personally examined, reviewed labs, diagnostic images/reports, interpretations, treatment plans, discussed patient care with other providers and family
or caregivers (if patient is unable to make decisions), entered orders as appropriate and documented the medical record.
Anticipated Discharge: > 48 hours
Subjective/Interval History
-
Date of Service: January 18, 2024
denies any complaints currently
Objective Data
-
Labs:
Laboratory Results
01/18/24 01/18/24
04:18 08:35
WBC 21.4 H
Hgb 12.2 L
Hct 34.4 L
Plt Count 282
Sodium 131 L 133 L
Potassium 3.7 3.2 L
Chloride 98 99
Carbon Dioxide 25 25
BUN 30 H 32 H
Creatinine 1.0 0.9
Glucose 167 H 78
Calcium 8.2 L 7.9 L
Vital Signs:
Vital Signs
Temp Pulse Resp BP Pulse Ox
98.8 F 89 18 126/72 96
01/18/24 12:14 01/18/24 13:00 01/18/24 13:00 01/18/24 12:00 01/18/24 13:00
I&O
01/17/24 01/18/24 01/19/24
06:59 06:59 06:59
Intake Total 2894 / 3001 852.9 / 852.9
Output Total 600 / 600 100 / 100
Balance 2294 / 2401 752.9 / 752.9
Physical Exam
-
General: No Apparent Distress
HEENT: Normocephalic and Atraumatic
Respiratory: Negative Wheezes or Rales
Cardiac: Regular Rhythm and S1/S2
GI: Soft
Genito-urinary: No Costovertebral Tender
Neuro: AO x 3
Psych: Calm
Data Reviewed
-
Critical Care Time (in minutes): 41
Labs: Labs Reviewed by me
[2024-01-18 16:59] LABS: Glucose - Point of Care 281 mg/dl (70-99)
[2024-01-18] MEDS: NOVOLOG FLEXPEN-LOW RESISTANCE 3 UNITS SC (17:01)
[2024-01-18] MEDS: VANCOCIN 275 MG IV (17:03)
[2024-01-18] MEDS: LOVENOX 40 MG SC (18:00)
--- NOTE | 2024-01-18 20:00 | PTCARENOTE ---
Patient received in bed, AAOX3, UMU, offers no complaints. NSR on monitor,afebrile, blood pressure as documented. palpable pulses throughout, no edema noted. Knee high teds and SCDs maintained. Lungs diminished, pulse ox 95% on room air.
Abdomen soft. Voiding yellow urine. Buttock dressing intact. #20 g in left forearm with IVF infusing as ordered, #20 g in left hand flushed and patent. Call dowell within reach
[2024-01-18 21:51] LABS: Glucose - Point of Care 368 mg/dl (70-99)
[2024-01-19] VITALS (24 sets, daily range): BP systolic 98–129; BP diastolic 45–86
[2024-01-19] MEDS: ZOSYN 50 IV ×2 (02:01→07:39)
[2024-01-19] MEDS: TORADOL 15 MG IV ×4 (02:01→19:32)
[2024-01-19] MEDS: TYLENOL 1000 MG PO ×3 (02:01→19:31)
[2024-01-19] MEDS: NSS 1000 IV ×2 (03:01→17:54)
[2024-01-19] MEDS: VANCOCIN 275 MG IV ×2 (05:03→18:03)
[2024-01-19 05:08] LABS: Hematocrit 45.4 % (39.0-52.0); Hemoglobin 15.1 g/dL (13.0-18.0); Mean Corp Hgb Conc. 33.3 g/dL (33.0-37.0); Mean Corpuscular Hgb 28.4 pg (27.0-31.0); Mean Corpuscular Volume 85.3 fL (80.0-94.0); Platelet Count 322 10^3/uL (130-400); Red Blood Cell Count 5.32 10^6/uL (4.70-6.10); Red Cell Dist. Width 13.8 % (11.5-14.5); White Blood Cell Count 24.1 10^3/uL (4.8-10.8)
[2024-01-19 05:32] LABS: Blood Urea Nitrogen 41 mg/dl (9-20); Calcium 8.3 mg/dl (8.4-10.2); Carbon Dioxide 18 mmol/L (22-30); Chloride 99 mmol/L (98-107); Estimated Creatinine Clearance 110 ml/min; Glucose 316 mg/dl (70-99); Sodium 132 mmol/L (135-145); eGFR > 60.00
[2024-01-19 07:34] LABS: Glucose - Point of Care 309 mg/dl (70-99)
[2024-01-19] MEDS: SENOKOT-S 1 TABLET PO (07:46)
[2024-01-19] MEDS: NOVOLOG FLEXPEN-LOW RESISTANCE 4 UNITS SC (07:48)
[2024-01-19 08:22] LABS: Absolute Neutrophils -Man Diff 22.1 10^3/uL (1.4-6.5); Anisocytosis Slight; Band Neutrophils 12 % (0-3); Lymphocytes 1 % (20-51); Monocytes 7 % (2-9); Normal RBC Morphology No; Platelets Checked Yes; Segmented Neutrophils 80 % (42-75)
[2024-01-19 08:23] LABS: Acanthocytes 1+; Hypochromasia Slight; Polychromasia Slight; Total Cells Counted 100
--- NOTE | 2024-01-19 09:13 | PTCARENOTE ---
Pt received this am. Assessment as documented. Denies pain. Lungs clear. Denies SOB. Complain of feeling constipated. Senna given as ordered. Pt resting on his side in bed.
[2024-01-19] MEDS: NOVOLOG FLEXPEN SC ×3 (09:22→17:58)
[2024-01-19] MEDS: LANTUS 0.100000000000000006 UNITS SC (09:22)
[2024-01-19] MEDS: NOVOLOG FLEXPEN 4 UNITS SC ×2 (09:23→18:58)
[2024-01-19 09:32] LABS: Glucose - Point of Care 295 mg/dl (70-99)
--- NOTE | 2024-01-19 09:39 | PHA.VAN.FU ---
Vancomycin Assessment / Plan
- Assessment
Renal Function: Stable (0.9>0.9)
WBC's are: Trending Up (21.4>24.1)
In the past 24 hrs, patient has been: Afebrile
Concomitant Antimicrobials: Piperacillin-tazobactam
- Dosing Plan
Continue: Vancomycin 1250mg IV Q12hrs
- Monitoring Plan
No level(s) ordered at this time: Will order levels according to pharmacy dosing protocol
- Follow Up
Pharmacy will continue to follow.
Vancomycin Follow UP
- -
Patient Age: 63
Patient Sex: Male
Vancomycin Day #: 3
Indication: Skin And Soft Tissue (GLUTEAL ABSCESS)
Requesting Provider: KEYA
Pertinent Antimicrobial Allergies:
No antibiotic allergies
Height / Weight:
Height 6 ft 1 in
Actual Weight 107.6 kg
IBW in k.9
Adjusted BW in k
Pertinent Past Medical History: NEW IDDM, BMI~31
- Vital Signs / Lab Results
Temp Pulse Resp BP Pulse Ox
97.8 F 73 15 119/73 95
01/19/24 07:53 01/19/24 08:00 01/19/24 08:00 01/19/24 08:00 01/18/24 20:00
Lab Results - Hematology
01/17/24 01/18/24 01/19/24
12:10 04:18 04:57
WBC 24.7 H 21.4 H 24.1 H
Band Neutrophils 11 H 12 H
Lab Results - Chemistry
01/17/24 01/17/24 01/18/24
12:10 23:17 04:18
BUN 23 H 28 H 30 H
Creatinine 1.0 1.0 1.0
Estimated Creat Clear 98 98 99
Albumin 3.3 L
01/18/24 01/19/24
08:35 04:57
BUN 32 H 41 H
Creatinine 0.9 0.9
Estimated Creat Clear 110 110
Albumin
Microbiology Results
01/18/24 04:37 MRSA Screen - Final
Nose No Methicillin Resistant Staphylococcus aureus isolated.
01/17/24 17:17 Wound Culture - Preliminary
Abscess Gram negative bacilli
Gram Stain - Preliminary
01/17/24 14:39 Blood Culture - Preliminary
Blood/Venous No Growth in 24 hours- Final report to follow
01/17/24 14:39 Blood Culture - Preliminary
Blood/Venous No Growth in 24 hours- Final report to follow
01/17/24 17:17 Anaerobic Culture - Preliminary
Abscess Culture pending. Anaerobic cultures are examined after 3
days incubation. Additional information to follow.
01/17/24 12:10 Wound Culture - Preliminary
Abscess Gram Stain - Preliminary
--- NOTE | 2024-01-19 10:30 | W.PN.GS2 ---
Today's Communication / Plan
-
OR for I&D
Assessment / Plan
-
63 yo male with uncontrolled DM with necrotizing soft tissue of the perineum
POD #2 flexible sigmoidoscopy, exam under anesthesia, incision and drainage of left gluteal abscess, extensive debridement of necrotic tissue, pulse irrigation
AFVSS
Leukocytosis trending up
Wound with worsening erythema into the perineum, pus to base of wound
May benefit from diverting ostomy in the future
--OR today for exam under anesthesia with washout
--Continue local wound care
--Continue ABX, Blood culture and OR wound cultures pending
--Insulin gtt/Diabetic management as per primary team
Subjective Data
-
Date of Service: January 19, 2024
Patient seen and examined at bedside with Dr. Hernandez. Pain with probing of wound but otherwise comfortable.
Objective Data
-
Intake and Output
01/18/24 01/19/24/
06:59 06:59 06:59
Intake Total 2894 / 3001 3490.4 / 3590.4 300 / 300
Output Total 600 / 600 100 / 100
Balance 2294 / 2401 3390.4 / 3490.4 300 / 300
Intake:
Oral fluids 1060 / 1060 360 / 360
IV fluids (Total) 1514 / 1621 2435.4 / 2535.4 300 / 300
Insulin 64 / 71 35.4 / 35.4
Nss 1,000 ml @ 100 mls/hr IV . 900 / 1000 2400 / 2500 300 / 300
Q10H DOROTHY Rx#:[id number]
normosol 400 / 400
nss 100 / 100
zosyn 50 / 50
IV piggybacks 320 / 320 695.0 / 695.0
Output:
Urine, Voided 600 / 600 100 / 100
Other:
Number of approximated MODERATE 1
amounts of urine
Number of approximated LARGE 1
amounts of urine
Vital Signs
Temp Pulse Resp BP Pulse Ox
97.8 F 73 15 119/73 95
01/19/24 07:53 01/19/24 08:00 01/19/24 08:00 01/19/24 08:00 01/18/24 20:00
Lab Results
01/19/24 04:57
01/19/24 04:57
Calcium 8.3 mg/dl (8.4-10.2) L 01/19/24 04:57
Total Bilirubin 0.8 mg/dl (0.2-1.3) 01/17/24 12:10
AST 27 U/L (17-59) 01/17/24 12:10
ALT 33 U/L (0-50) 01/17/24 12:10
Alkaline Phosphatase 215 U/L (38-126) H 01/17/24 12:10
Total Protein 6.1 g/dl (6.3-8.2) L 01/17/24 12:10
Albumin 3.3 g/dl (3.5-5.0) L 01/17/24 12:10
Physical Exam
-
NAD
ABD soft/nt
Packing changed. Wound is horseshoe shaped around anus with pus noted in the base of the right side. Erythema now tracking further into the perineum with induration/fluctuance present
[2024-01-19 12:09] LABS: Glucose - Point of Care 291 mg/dl (70-99)
--- NOTE | 2024-01-19 12:09 | CON.ID ---
Consultation
-
Date/Time Consultation Requested: 01/19/24 12:04
Date/Time Consultation Performed: 01/19/24 12:09
Requesting Provider: Dr Reardon
Performing Provider: Dr Rodriguez
[facility]
Chief Complaint / Past History
Chief Complaint
gluteal abscess
History of Present Illness
Mr Villalobos is a 63 year old male with history of cochlear implant, obesity, newly diagnosed DM2 this admission (a1c 14, not on medicatino at home) who presented here 01/16 for a painful buttock wound. He did sitz baths at home, then reported that the
wound spontaneously opened and drained. No fevers, chills or abdominal pain at home. + anorexia.
Since arrival here he has been afebrile, bp intermittent mild hypotension has not required pressors, WBC on arrival 21 now 24, hgb initially 12 now 15, plt 322, L shift noted, cr 1.0 on arrival now 0.9, na 127 now 132, K 4.0, glucose this AM 316,
a1c 14.2, initial CRP >270, initial esr 32, blood cultures x2 no growth to pelvis CT with IV contrast 01/16: symmetrical, extensive inflammatory stranding with extesnive SQ gas to perineum - no discrete fluid collections - possible indra gangrene,
taken to the OR 01/16 and underwent Flexible sigmoidoscopy, exam under anesthesia, incision and drainage of left gluteal abscess, extensive debridement of necrotic tissue, pulse irrigation; aerobic and anerobic cultures were taken, the procedure was
uncomplicated, note marcaine with dexamethasone used in perianal field block, 3x4 cm of necrotic skin removed, significant/extensive necrotic tissue around the anal canal. Today surgeons noted 'Wound with worsening erythema into the perineum, pus
to base of wound' and increasing leukocytosis, he is planned to return to the OR. ID is consulted for assistance with management.
Past History
Additional Past Medical History:
none
Additional Past Surgical History:
cochlear implant
Allergy History:
No Known Allergies Allergy (Unverified 04/05/21 08:12)
Medications Reviewed: Yes
Social History
Tobacco: Non-Smoker
Alcohol: None
Drug: None
Family History
Family History: Not Pertinent
Review of Systems
Review of Systems
General: Negative Fever or Chills
All systems: All other systems were reviewed and were negative
Vital Signs
Temp Pulse Resp BP Pulse Ox
97.8 F 81 18 125/79 95
01/19/24 07:53 01/19/24 10:00 01/19/24 10:00 01/19/24 10:00 01/18/24 20:00
Physical Exam
Physical Exam
Constitutional: No Acute Distress and Acutely Ill
Cardiovascular: Regular Rate and S1/S2; Negative Murmur or Rub
Pulmonary: Clear and Symmetric; Negative Wheezes, Rales or Rhonchi
Gastrointestinal: Soft, Non Tender, Non Distended and Normal Bowel Sounds
Genito-Urinary: Other (wound clean, surrounding erythema noted - packing not taken down as returning to the OR shortly and would be painful)
Skin: Warm and Dry; Negative Rash or Jaundice
Lab / Diagnostic Study Results
01/19/24 04:57
01/19/24 04:57
Total Counted 100 01/19/24 04:57
Abs Neuts (Manual) 22.1 10^3/uL (1.4-6.5) H 01/19/24 04:57
Segmented Neutrophils 80 % (42-75) H 01/19/24 04:57
Band Neutrophils 12 % (0-3) H 01/19/24 04:57
Lymphocytes (Manual) 1 % (20-51) L 01/19/24 04:57
Eosinophils (Manual) 1 % (0-6) 01/17/24 12:10
ESR Cancelled 01/17/24 12:52
PT 16.8 Sec (11.4-14.6) H 01/17/24 19:14
INR 1.38 01/17/24 19:14
C-Reactive Protein Cancelled 01/17/24 12:52
Microbiology Results
Micro:
01/17/24 12:10 Wound Culture - Final
Abscess Escherichia coli
Streptococcus agalactiae
Gram Stain - Final
01/17/24 17:17 Anaerobic Culture - Preliminary
Abscess Culture pending. Anaerobic cultures are examined after 3
days incubation. Additional information to follow.
01/17/24 17:17 Wound Culture - Preliminary
Abscess Escherichia coli
Streptococcus agalactiae
Gram Stain - Preliminary
01/18/24 04:37 MRSA Screen - Final
Nose No Methicillin Resistant Staphylococcus aureus isolated.
01/17/24 14:39 Blood Culture - Preliminary
Blood/Venous No Growth in 24 hours- Final report to follow
01/17/24 14:39 Blood Culture - Preliminary
Blood/Venous No Growth in 24 hours- Final report to follow
Assessment / Plan
Necrotizing Fasciits - progressing
Newly Diagnosed Dm2
- blood cultures no growth to date
- wound cultures from OR notable for GBS and e coli sensitive to zosyn
- would avoid steroids if possible
- continue vancomycin
- add linezolid for toxin inhibition; switch zosyn to meropenem given progression and to avoid nephrotoxic combination
- tight glucose control recommended - would consider insulin drip
- will follow up note from return to the OR
- if fevers send blood cultures x2 while febrile
- follow clinically
--- NOTE | 2024-01-19 12:23 | W.PN.INTV ---
Today's Communication / Plan
Recommendations
Resume insulin drip, ordered by hospitalist
Continue IV fluids
ID has been consulted
To OR today for further washout of gluteal abscess
Assessment
-
63-year-old male without medical history, developed boil on buttocks for 1 week, progressed to the point where prompted ED visit, found to have gluteal abscess requiring I&D, flexible sigmoidoscopy. Patient given IV antibiotics, admitted to ICU.
Required IV insulin drip due to significantly elevated blood sugars. Admitted to ICU
Left gluteal abscess/boil
Requiring incision and drainage, necrotic tissue in OR 01/17/2024
Newly diagnosed diabetes
requiring insulin drip
Leukocytosis
Hyponatremia
Elevated right hemidiaphragm, chronic
Nephrolithiasis per prior imaging
Suspected sleep disordered breathing
Plan/recommendations
Patient with worsening blood sugars, progressive infection
Plan to go back to the OR per surgical correspondence. Reviewed surgery as well
Leukocytosis worsened
Insulin drip has been resumed. Anion gap noted
Patient continues with IV fluids. Remains on Zosyn/vancomycin
Infectious disease has been consulted
Moving forward
Continue with supportive care, IV fluids, broad-spectrum antibiotics
Cultures pending
Colorectal surgery following
Plan to go back to the OR today 01/18
Currently on normal saline
Admission sugars 480, initially decreased, now back up in the 300s
Anion gap noted
Resume IV fluids, insulin drip
Replete electrolytes
Hemoglobin A1c greater than 14
Patient aware of his lack of medical follow-up, has not seen his primary for 7 years
Incentive spirometry
DVT prophylaxis: Remains on Lovenox
Discussed importance of primary care follow-up
Patient also at risk for sleep disordered breathing
Reviewed with critical care nursing, primary service
Reviewed with family at bedside
TCCT 31 min
Subjective Dataa
Subjective Data
Date of Service:
Date of Service: January 19, 2024
Subjective:
Asked to see this patient due to worsening blood sugars, upgraded back to ICU status. Patient denies any chest pain, shortness of breath, nausea, abdominal pain. Family at bedside. Increased blood sugars noted. Surgery correspondence reviewed
Objective Data
Data Reviewed
Vital Signs / I&O / Oxygen:
Vital Signs
Temp Pulse Resp BP Pulse Ox
97.8 F 81 18 125/79 95
01/19/24 12:19 01/19/24 10:00 01/19/24 10:00 01/19/24 10:00 01/18/24 20:00
Intake and Output
01/18/24 01/19/24 01/20/24
06:59 06:59 06:59
Intake Total 2894 / 3001 3490.4 / 3590.4 700 / 700
Output Total 600 / 600 100 / 100
Balance 2294 / 2401 3390.4 / 3490.4 700 / 700
SaO2 95
Nasal Cannula flow liters per 2
minute
Physical Exam
General: Comfortable
HEENT: Normocephalic and Anicteric
Cardiovascular: S1-S2, Regular Rhythm and Murmur (n)
Respiratory: Wheeze (n), Crackles (n), Rhonchi (n) and Non-Labored Respirations
GI: Soft, Non Distended and Non Tender
Neurology: Awake, Alert and No Motor Deficits
Skin: Cyanosis (n), Jaundice (n) and Rash (n)
Labs/Micro/Reports
Lab Data
01/19/24 04:57
01/19/24 04:57
Microbiology
01/17/24 12:10 Abscess Wound Culture - Final
Escherichia coli
Streptococcus agalactiae
01/17/24 12:10 Abscess Gram Stain - Final
01/17/24 17:17 Abscess Anaerobic Culture - Preliminary
Culture pending. Anaerobic cultures are examined after 3
days incubation. Additional information to follow.
01/17/24 17:17 Abscess Wound Culture - Preliminary
Escherichia coli
Streptococcus agalactiae
01/17/24 17:17 Abscess Gram Stain - Preliminary
01/18/24 04:37 Nose MRSA Screen - Final
No Methicillin Resistant Staphylococcus aureus isolated.
01/17/24 14:39 Blood/Venous Blood Culture - Preliminary
No Growth in 24 hours- Final report to follow
01/17/24 14:39 Blood/Venous Blood Culture - Preliminary
No Growth in 24 hours- Final report to follow
--- NOTE | 2024-01-19 12:27 | W.PN.HOSP.TC ---
Today's Communication/Plan
-
restart insulin gtt protocol
continue empiric IV Abx and consult ID
repeat OR today with GS/urology
PICC Placement
Assessment / Plan
Assessment / Plan
Assessment:
Gluteal abscess
- CT: Symmetric skin thickening and rather extensive inflammatory stranding seen within the buttocks along the gluteal clefts with extensive subcutaneous emphysema with gas extending inferiorly into the perineum. No discrete or drainable fluid
collections appreciated. Findings concerning for extensive soft tissue infection, possibly necrotizing fasciitis/developing Shilpa gangrene.
- s/p Flexible sigmoidoscopy, exam under anesthesia, incision and drainage of left gluteal abscess, extensive debridement of necrotic tissue, pulse irrigation
- follow surgical recs
- repeat I&D today
- continue IVF
- continue Vanc/Zosyn, day 3. operative cultures so far growing GNB. follow blood cultures
- ID consulted
- pain control
Hyponatremia, pseudohyponatremia from Hypoglycemia
HHNK
- s/p Insulin infusion; initially transitioned to SC, will place back on insulin drip with return OR trip
- A1c is 14
- [employer] and educator consults placed
Hx of cochlear implants
Hypokalemia repleted
DVT ppx: SCDs
Code: Full
Total Critical Care Time 41 minutes. I was immediately available to the patient and staff. I personally examined, reviewed labs, diagnostic images/reports, interpretations, treatment plans, discussed patient care with other providers and family
or caregivers (if patient is unable to make decisions), entered orders as appropriate and documented the medical record.
Anticipated Discharge: > 48 hours
Subjective/Interval History
-
Date of Service: January 19, 2024
wound painful, no other complaints
for repeat OR visit today
Objective Data
-
Labs:
Laboratory Results
01/19/24
04:57
WBC 24.1 H
Hgb 15.1 D
Hct 45.4
Plt Count 322
Sodium 132 L
Potassium 4.0
Chloride 99
Carbon Dioxide 18 L
BUN 41 H
Creatinine 0.9
Glucose 316 H
Calcium 8.3 L
Vital Signs:
Vital Signs
Temp Pulse Resp BP Pulse Ox
97.8 F 81 18 125/79 95
01/19/24 12:19 01/19/24 10:00 01/19/24 10:00 01/19/24 10:00 01/18/24 20:00
I&O
01/18/24 01/19/24 01/20/24
06:59 06:59 06:59
Intake Total 2894 / 3001 3490.4 / 3590.4 700 / 700
Output Total 600 / 600 100 / 100
Balance 2294 / 2401 3390.4 / 3490.4 700 / 700
Physical Exam
-
General: No Apparent Distress
HEENT: Normocephalic and Atraumatic
Respiratory: Negative Wheezes or Rales
Cardiac: Regular Rhythm and S1/S2
GI: Soft
Musculoskeletal: Other (R wound case with pus, erythema near perineum, + fluctuance)
Neuro: AO x 3
Hematologic / Lymphatic: No Lymphadenopathy
Psych: Calm
Data Reviewed
-
Critical Care Time (in minutes): 41
Labs: Labs Reviewed by me
[2024-01-19 13:24] LABS: Glucose - Point of Care 274 mg/dl (70-99)
[2024-01-19] MEDS: NOVOLIN R 5 UNITS IV (13:43)
[2024-01-19] MEDS: NOVOLIN R INSULIN INFUSION 100 IV (13:44)
[2024-01-19] MEDS: ZYVOX 600 MG 300 IV (14:46)
[2024-01-19] MEDS: TYLENOL PO (14:47)
[2024-01-19 15:05] LABS: Glucose - Point of Care 241 mg/dl (70-99)
[2024-01-19] MEDS: NOVOLOG FLEXPEN-LOW RESISTANCE SC (15:33)
--- NOTE | 2024-01-19 15:38 | PTCARENOTE ---
Patient started on insulin drip as ordered. Pt to OR.
--- NOTE | 2024-01-19 16:38 | W.IMMPOSTOP ---
Surgical Immed Post Op Note
-
Primary Surgeon: David
Assisting Surgeon: Robbie
Pre-op Diagnosis: Necrotizing soft tissue infection of perirectal and perineal tissues
Post-op Diagnosis: Same
Procedure Performed:
Exam under anesthesia
Perineal and posterior scrotal exploration
Wide debridement of necrotic tissues
Bilateral scrotal compartment exploration
Anesthesia Type: GETA
Specimen / Cultures: Left perineal necrotic tissue
Estimated Blood Loss: <5 cc
Complications: None
Operative Findings: significant SQ tissue necrosis primarily in superior and left lateral aspect of perineum, no evidence of deep necrotizing soft tissue infection, tissue resected to bleeding edges and healthy fat, NO involvement of bilateral
testes or penis
--- NOTE | 2024-01-19 16:57 | W.SUR.PREOP ---
Pre-Operative Surgical Note
-
I have examined this patient prior to the performance of the scheduled procedure.
The patient's condition is unchanged from the time of the current History and
Physical and the patient is able to undergo the scheduled procedure.
--- NOTE | 2024-01-19 16:57 | W.IMMPOSTOP ---
Surgical Immed Post Op Note
-
Primary Surgeon: Giovanni Hernandez MD
Assisting Surgeon: Andre Avalos
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
Post-op Diagnosis: Same
Procedure Performed:
Exam under anesthesia, excision and debridement of necrotic tissue of the perineum
Anesthesia Type: General
Specimen / Cultures: Left gluteal tissue sent for culture
Estimated Blood Loss: 24 cc
Complications: None
Operative Findings: A linear incision was made in the midline of the perineum anterior to the anus to the scrotum. Necrotic subcutaneous tissue and pus was identified. All necrotic tissue was debrided until healthy bleeding tissue was encountered.
Dr. Avalos assisted with evaluation, but thankfully there was no evidence of involvement of the testes bilaterally or the penis. This incision was connected to the previous perirectal incision bilaterally using a Valery, sparing the anus and
sphincter complex. The new wound measured seven 8 x 7 x 3 cm. After generously curetting and irrigating the wound, hemostasis was achieved and the wound was packed with Betadine soaked kerlix followed by mesh underwear.
POST OP PLAN:
Imaging: None
Labs: Routine AM
Diet: Okay for regular diet, n.p.o. at midnight
Analgesia: Multimodal pain medication per ICU/primary
Neuro/vascular checks: q4h
AC/AP: Hold Therapeutic AC, Ok for DVT PPx
Activity: Ad Shakila
Wound/Incisions/Drains: Will pack wound daily with Betadine soaked kerlix mesh underwear for now.
Abx: Continue antibiotics per ID. Follow-up wound tissue culture.
Dispo: Return to ICU. Anticipate return to the OR tomorrow for additional evaluation and debridement.
[2024-01-19 17:04] LABS: Glucose - Point of Care 193 mg/dl (70-99)
[2024-01-19] MEDS: MERREM 500 MG IV ×2 (17:16→22:05)
[2024-01-19] MEDS: DILAUDID 0.25 MG IV (17:18)
[2024-01-19] MEDS: STERILE WATER FOR INJECTION IV (17:59)
[2024-01-19] MEDS: LOVENOX 40 MG SC (18:03)
[2024-01-19 18:16] LABS: Glucose - Point of Care 244 mg/dl (70-99)
[2024-01-19 19:07] LABS: Glucose - Point of Care 186 mg/dl (70-99)
[2024-01-19 19:43] LABS: Blood Urea Nitrogen 35 mg/dl (9-20); Calcium 7.8 mg/dl (8.4-10.2); Carbon Dioxide 24 mmol/L (22-30); Chloride 105 mmol/L (98-107); Estimated Creatinine Clearance > 125 ml/min; Glucose 173 mg/dl (70-99); Potassium 3.1 mmol/L (3.5-5.1); Sodium 132 mmol/L (135-145); eGFR > 60.00
--- NOTE | 2024-01-19 20:00 | PTCARENOTE ---
Patient received lying on right sode in bed, offers no complaints. NSR on monitor, afebrile,blood pressure as documented. palpable pulses throughout, no edema noted. Knee high teds/SCDs maintained. Lungs diminished, exp wheeze at left base, pulse
ox 96% on room air. Abdomen obese with hypoactive bowel sounds, + flatus. Brandt catheter draining yellow urine. buttock/perineum wound dressing intact. RDL PICC with IVF and insulin gtt infusing as ordered. Plan of care discussed, call dowell
within reach
[2024-01-19 20:12] LABS: Glucose - Point of Care 171 mg/dl (70-99)
--- NOTE | 2024-01-19 20:50 | PTCARENOTE ---
BMP noted, order received
[2024-01-19] MEDS: KCL 100 IV (21:02)
[2024-01-19 21:15] LABS: Glucose - Point of Care 136 mg/dl (70-99)
[2024-01-19] MEDS: STERILE WATER FOR INJECTION 10 ML IV (22:05)
[2024-01-19 22:15] LABS: Glucose - Point of Care 91 mg/dl (70-99)
[2024-01-19 23:12] LABS: Glucose - Point of Care 95 mg/dl (70-99)
[2024-01-20] VITALS (24 sets, daily range): BP systolic 94–153; BP diastolic 28–96; BMI 31.4
[2024-01-20] MEDS: ZYVOX 600 MG 300 IV ×3 (00:56→23:55)
[2024-01-20 01:09] LABS: Glucose - Point of Care 130 mg/dl (70-99)
[2024-01-20] MEDS: TYLENOL 1000 MG PO ×4 (03:03→21:56)
[2024-01-20] MEDS: TORADOL 15 MG IV ×4 (03:03→19:58)
[2024-01-20 03:19] LABS: Glucose - Point of Care 135 mg/dl (70-99)
[2024-01-20] MEDS: STERILE WATER FOR INJECTION 10 ML IV ×4 (03:47→21:55)
[2024-01-20] MEDS: MERREM 500 MG IV ×4 (03:47→21:55)
[2024-01-20] MEDS: NSS 1000 IV ×3 (03:47→21:54)
[2024-01-20 04:05] LABS: % Basophils 0.7 % (0-2); % Eosinophils 0.4 % (0-6); % Immature Granulocytes 5.2 % (0-0.5); % Lymphocytes 5.9 % (20.5-51.1); % Monocytes 6.8 % (1.7-9.3); Absolute Basophils 0.1 10^3/uL (0-0.2); Absolute Eosinophils 0.1 10^3/uL (0-0.7); Absolute Immature Granulocytes 0.9 10^3/uL (0-0.05); Absolute Lymphocytes 1.1 10^3/uL (1.2-3.4); Absolute Monocytes 1.2 10^3/uL (0.1-0.6); Absolute Neutrophils 14.4 10^3/uL (1.4-6.5); Hematocrit 36.7 % (39.0-52.0); Hemoglobin 12.8 g/dL (13.0-18.0); Mean Corp Hgb Conc. 34.9 g/dL (33.0-37.0); Mean Corpuscular Hgb 28.7 pg (27.0-31.0); Mean Corpuscular Volume 82.3 fL (80.0-94.0); Mean Platelet Volume 10.4 fL (7.4-10.4); Nucleated Red Blood Cells % 0 % (-); Platelet Count 296 10^3/uL (130-400); Red Blood Cell Count 4.46 10^6/uL (4.70-6.10); White Blood Cell Count 17.8 10^3/uL (4.8-10.8)
[2024-01-20] MEDS: VENTOLIN NEBULES 2.5 MG INH (04:11)
--- NOTE | 2024-01-20 04:13 | PTCARENOTE ---
Patient with audible wheeze, order received for neb treatment, given by respiratory. no complaints of SOB. labs sent.
[2024-01-20 04:25] LABS: Blood Urea Nitrogen 29 mg/dl (9-20); Calcium 7.4 mg/dl (8.4-10.2); Carbon Dioxide 25 mmol/L (22-30); Chloride 106 mmol/L (98-107); Estimated Creatinine Clearance > 125 ml/min; Glucose 126 mg/dl (70-99); Magnesium 2.4 mg/dl (1.6-2.3); Potassium 3.2 mmol/L (3.5-5.1); Sodium 132 mmol/L (135-145); eGFR > 60.00
[2024-01-20 05:26] LABS: Glucose - Point of Care 126 mg/dl (70-99)
[2024-01-20] MEDS: KCL 100 IV (06:16)
[2024-01-20] MEDS: VANCOCIN 275 MG IV ×2 (06:16→17:54)
--- NOTE | 2024-01-20 07:25 | W.PN.INTV ---
Documented by User: Kwaku Gomez MD 01/20/24 17:48
Today's Communication / Plan
Recommendations
Repeat I&D today
Continue vancomycin, linezolid, meropenem
Continue IV fluid and replete electrolytes
Continue insulin drip and reassess for transition to subQ insulin
Wound care
Assessment
-
63-year-old male without medical history, developed boil on buttocks for 1 week, progressed to the point where prompted ED visit, found to have gluteal abscess requiring I&D, flexible sigmoidoscopy. Patient given IV antibiotics, admitted to ICU.
Required IV insulin drip due to significantly elevated blood sugars. Admitted to ICU
ASSESSMENT:
Left gluteal abscess/boil
Requiring incision and drainage, necrotic tissue in OR 01/17/2024
Newly diagnosed diabetes
Requiring insulin drip
Leukocytosis
Hyponatremia
Elevated right hemidiaphragm, chronic
Nephrolithiasis per prior imaging
Suspected sleep disordered breathing
CONDITIONS PRIOR TO ADMISSION:
Impression/Plan:
Left gluteal abscess/boil.
-Necrotizing fasciitis in the setting of undiagnosed diabetes mellitus type 2.
-Incision and drainage of necrotic tissue in OR 01/17/2024 with growth of E. coli and strep agalactiae.
-Uneventful perineal wound debridement today with flexible sigmoidoscopy.
-Patient afebrile with WBC count 17.8 down from 24.1. Continue to trend.
-Continue vancomycin, meropenem and linezolid day 2
-Wound care.
-ID following
Patient with worsening blood sugars, progressive infection.
-Newly diagnosed diabetes mellitus with A1c 14.2 and blood glucose 518 on admission.
-Necrotizing fasciitis of the perineum.
-Continue insulin drip and reassess for transition to subQ insulin.
-Continue IV fluid.
-Replete electrolytes as needed.
-Diabetic education.
-Patient advised to improve his medical compliance, he has not seen his primary for 7 years.
Leukocytosis
-Improving, down to 17.8, was previously 24.1.
-Continue antibiotics and monitor white counts.
-Continue with supportive care, IV fluids, broad-spectrum antibiotics (vancomycin, linezolid, meropenem)
-Abscess cx -12: E coli, Strep agalactiae
-Blood cxs NTD
-CXR 01-18: no infiltrates. Elevated R diaphragm. RUE PICC in place
-Colorectal surgery following
To return to OR for further debridement 01-19
Incentive spirometry
DVT prophylaxis: Remains on Lovenox
Critical care time: 35 min
Subjective Dataa
Subjective Data
Date of Service:
Date of Service: January 20, 2024
Chief Complaint: Safety Counselor Follow Up
Subjective:
Overnight patient had an audible wheeze which was treated with nebs. Denies shortness of breath.
Scheduled to return to OR for further debridement
Clinically improving overall
In no resp distress, saturating well on RA
Review of Systems
GI: Abdominal Pain (n) and Other (incisional perineal pain)
Objective Data
Data Reviewed
Vital Signs / I&O / Oxygen:
Vital Signs
Temp Pulse Resp BP Pulse Ox
98.5 F 79 13 97/56 91
01/20/24 04:00 01/20/24 06:00 01/20/24 06:00 01/20/24 06:00 01/20/24 06:00
Intake and Output
01/19/24 01/20/24 01/21/24
06:59 06:59 06:59
Intake Total 3490.4 / 3590.4 3371.4 / 3371.4
Output Total 100 / 100 975 / 975
Balance 3390.4 / 3490.4 2396.4 / 2396.4
SaO2 91
Nasal Cannula flow liters per 3
minute
Physical Exam
General: Comfortable
HEENT: Normocephalic and Anicteric
Cardiovascular: S1-S2, Regular Rhythm and Murmur (n)
Respiratory: Wheeze (n), Crackles (n), Rhonchi (n) and Non-Labored Respirations
GI: Soft, Non Distended and Non Tender
Neurology: Awake, Alert and No Motor Deficits
Skin: Cyanosis (n), Jaundice (n) and Rash (n)
Labs/Micro/Reports
Lab Data
01/20/24 03:55
Microbiology
01/17/24 14:39 Blood/Venous Blood Culture - Preliminary
No Growth in 48 hours- Final report to follow
01/17/24 14:39 Blood/Venous Blood Culture - Preliminary
No Growth in 48 hours- Final report to follow
01/17/24 12:10 Abscess Wound Culture - Final
Escherichia coli
Streptococcus agalactiae
01/17/24 12:10 Abscess Gram Stain - Final
01/17/24 17:17 Abscess Anaerobic Culture - Preliminary
Culture pending. Anaerobic cultures are examined after 3
days incubation. Additional information to follow.
01/17/24 17:17 Abscess Wound Culture - Preliminary
Escherichia coli
Streptococcus agalactiae
01/17/24 17:17 Abscess Gram Stain - Preliminary
01/18/24 04:37 Nose MRSA Screen - Final
No Methicillin Resistant Staphylococcus aureus isolated.

Documented by User: Aram Catalan MD, Resident 01/20/24 16:19
Today's Communication / Plan
Recommendations
Repeat I&D today uneventful.
Continue vancomycin, linezolid, meropenem
Continue IV fluid and replete electrolytes
Continue insulin drip and reassess for transition to subQ insulin
Wound care
Assessment
-
63-year-old male without medical history, developed boil on buttocks for 1 week, progressed to the point where prompted ED visit, found to have gluteal abscess requiring I&D, flexible sigmoidoscopy. Patient given IV antibiotics, admitted to ICU.
Required IV insulin drip due to significantly elevated blood sugars. Admitted to ICU
ASSESSMENT:
Left gluteal abscess/boil
Requiring incision and drainage, necrotic tissue in OR 01/17/2024
Newly diagnosed diabetes
requiring insulin drip
Leukocytosis
Hyponatremia
Elevated right hemidiaphragm, chronic
Nephrolithiasis per prior imaging
Suspected sleep disordered breathing
CONDITIONS PRIOR TO ADMISSION:
Impression/Plan:
Left gluteal abscess/boil.
-Necrotizing fasciitis in the setting of undiagnosed diabetes mellitus type 2.
-Interstitial and drainage of necrotic tissue in OR 01/17/2024 with growth of E. coli and strep agalactiae.
-Uneventful perineal wound debridement today with flexible sigmoidoscopy.
-Patient afebrile with WBC count 17.8 down from 24.1. Continue to trend.
-Continue vancomycin, meropenem and Zyvox day 2
-Wound care.
-ID following
Patient with worsening blood sugars, progressive infection.
-Newly diagnosed diabetes mellitus with A1c 14.2 and blood glucose 518 on admission.
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
-Wound debridement today uneventful.
-Continue insulin drip and reassess for transition to subQ insulin.
-Continue IV fluid.
-Replete electrolytes as needed.
-Diabetic education.
-Patient aware of his lack of medical follow-up, has not seen his primary for 7 years.
Leukocytosis
-Improving, down to 17.8, was previously 24.1.
-Continue antibiotics and monitor white counts.
-Continue with supportive care, IV fluids, broad-spectrum antibiotics (vancomycin, linezolid, meropenem)
-Abscess cx -12: E coli, Strop agalactiae
-Blood cxs NTD
-CXR 01-18: no infiltrates. Elevated R diaphragm. RUE PICC in place
-Colorectal surgery following
Incentive spirometry
DVT prophylaxis: Remains on Lovenox
Patient also at risk for sleep disordered breathing.
Subjective Dataa
Subjective Data
Subjective:
Overnight patient had an audible wheeze which was treated with nebs. Denies shortness of breath.
Review of Systems
General: Fever (n) and Chills (n)
Cardiopulmonary: Dyspnea (n), Cough (n), Wheezing (n) and Chest Pain (n)
Neuro: Headache (n) and Weakness (n)
Genitourinary: Brandt
[2024-01-20] MEDS: NOVOLOG FLEXPEN SC ×3 (07:40→16:00)
[2024-01-20 07:41] LABS: Glucose - Point of Care 75 mg/dl (70-99)
--- NOTE | 2024-01-20 08:33 | PTCARENOTE ---
Received pt awake and alert.Speech is appropriate.+JAMESON.Repositions self independently.Denies pain.Declines to get oob because it is uncomfortable to sit on packing/dressing.Pt is alternating lying on his sides.SR noted.IVF and Glycemic protocol
infusing.POX 96% on RA.Decreased breath sounds bibasilar.Using IS.NPO.No BM.Brandt draining rylie yellow urine.Buttock incision intact with packing and dressing.Plan of care discussed with pt.Pt for OR today as per MD order.
[2024-01-20 08:34] LABS: Glucose - Point of Care 75 mg/dl (70-99)
[2024-01-20] MEDS: NSS IV ×2 (08:41→17:45)
[2024-01-20 09:25] LABS: Glucose - Point of Care 89 mg/dl (70-99)
--- NOTE | 2024-01-20 09:28 | W.PN.HOSP.TC ---
Today's Communication/Plan
-
repeat OR today
continue Abx per ID
continue insulin drip
Assessment / Plan
Assessment / Plan
Assessment:
Gluteal abscess
- CT: Symmetric skin thickening and rather extensive inflammatory stranding seen within the buttocks along the gluteal clefts with extensive subcutaneous emphysema with gas extending inferiorly into the perineum. No discrete or drainable fluid
collections appreciated. Findings concerning for extensive soft tissue infection, possibly necrotizing fasciitis/developing Shilpa gangrene.
- s/p Flexible sigmoidoscopy, exam under anesthesia, incision and drainage of left gluteal abscess, extensive debridement of necrotic tissue, pulse irrigation on 01/17
- s/p Exam under anesthesia, excision and debridement of necrotic tissue of the perineum on 01/18
- follow Surgery recs
- repeat I&D today, possible ostomy today
- continue IVF
- continue Merrem and Zyvox, day 2. follow cultures (so far growing E. Coli, Strep)
- ID following
- pain control
Hyponatremia, pseudohyponatremia from Hypoglycemia
HHNK
- continue critical care hyperglycemia protocol
- A1c is 14
- [employer] WORKER and educator consults placed
Hx of cochlear implants
Hypokalemia - replete prn
DVT ppx: SCDs
Code: Full
Total Critical Care Time 41 minutes. I was immediately available to the patient and staff. I personally examined, reviewed labs, diagnostic images/reports, interpretations, treatment plans, discussed patient care with other providers and family
or caregivers (if patient is unable to make decisions), entered orders as appropriate and documented the medical record.
Anticipated Discharge: > 48 hours
Subjective/Interval History
-
Date of Service: January 20, 2024
OR correspondence reviewed from yesterday, further debridement undertaken
feels well
for further OR debridement today, possible ostomy
Objective Data
-
Labs:
Laboratory Results
01/20/24 01/20/24 01/20/24
02:00 03:55 12:00
WBC 17.8 H
Hgb 12.8 L
Hct 36.7 L
Plt Count 296
Sodium Cancelled 132 L Pending
Potassium Cancelled 3.2 L Pending
Chloride Cancelled 106 Pending
Carbon Dioxide Cancelled 25 Pending
BUN Cancelled 29 H Pending
Creatinine Cancelled 0.6 L Pending
Glucose Cancelled 126 H Pending
Calcium Cancelled 7.4 L Pending
Vital Signs:
Vital Signs
Temp Pulse Resp BP Pulse Ox
98.6 F 79 13 97/56 91
01/20/24 07:36 01/20/24 06:00 01/20/24 06:00 01/20/24 06:00 01/20/24 06:00
I&O
01/19/24 01/20/24 01/21/24
06:59 06:59 06:59
Intake Total 3490.4 / 3590.4 3371.4 / 3371.4
Output Total 100 / 100 975 / 975
Balance 3390.4 / 3490.4 2396.4 / 2396.4
Physical Exam
-
General: No Apparent Distress
HEENT: Normocephalic and Atraumatic
Respiratory: Clear to Auscultation; Negative Wheezes or Rales
Cardiac: Regular Rhythm and S1/S2
GI: Soft
Musculoskeletal: No Edema
Neuro: AO x 3
Hematologic / Lymphatic: No Lymphadenopathy
Psych: Calm
Data Reviewed
-
Critical Care Time (in minutes): 41
Labs: Labs Reviewed by me
[2024-01-20 10:09] LABS: Glucose - Point of Care 99 mg/dl (70-99)
--- NOTE | 2024-01-20 10:23 | PHA.VAN.FU ---
Vancomycin Assessment / Plan
- Assessment
Renal Function: Stable
WBC's are: Trending Down
In the past 24 hrs, patient has been: Afebrile
Concomitant Antimicrobials: meropenem, linezolid
- Dosing Plan
Continue: Vanc 1250mg Q12H
- Monitoring Plan
Peak Level: 01/19 21:00
Trough Level: 01/20 05:30
Monitoring Comments: levels to be drawn after 5th maintenance dose
- Follow Up
Pharmacy will continue to follow.
Vancomycin Follow UP
- -
Patient Age: 63
Patient Sex: Male
Vancomycin Day #: 4
Indication: Skin And Soft Tissue
Requesting Provider: Dr. Reardon / Jennifer
Pertinent Antimicrobial Allergies:
No antibiotic allergies
Height / Weight:
Height 6 ft 1 in
Actual Weight 107.6 kg
IBW in k.9
Adjusted BW in k
Pertinent Past Medical History: DM, BMI ~31
- Vital Signs / Lab Results
Temp Pulse Resp BP Pulse Ox
98.6 F 79 13 97/56 91
01/20/24 07:36 01/20/24 06:00 01/20/24 06:00 01/20/24 06:00 01/20/24 06:00
Lab Results - Hematology
01/17/24 01/18/24 01/19/24
12:10 04:18 04:57
WBC 24.7 H 21.4 H 24.1 H
Band Neutrophils 11 H 12 H
01/20/24
03:55
WBC 17.8 H
Band Neutrophils
Lab Results - Chemistry
01/17/24 01/17/24 01/18/24
12:10 23:17 04:18
BUN 23 H 28 H 30 H
Creatinine 1.0 1.0 1.0
Estimated Creat Clear 98 98 99
Albumin 3.3 L
01/18/24 01/19/24 01/19/24
08:35 04:57 12:41
BUN 32 H 41 H Cancelled
Creatinine 0.9 0.9 Cancelled
Estimated Creat Clear 110 110 Cancelled
Albumin
01/19/24 01/20/24 01/20/24
19:22 02:00 03:55
BUN 35 H Cancelled 29 H
Creatinine 0.7 Cancelled 0.6 L
Estimated Creat Clear > 125 Cancelled > 125
Albumin
Microbiology Results
01/19/24 16:19 Gram Stain - Preliminary
Perineum
01/17/24 14:39 Blood Culture - Preliminary
Blood/Venous No Growth in 48 hours- Final report to follow
01/17/24 14:39 Blood Culture - Preliminary
Blood/Venous No Growth in 48 hours- Final report to follow
01/17/24 12:10 Wound Culture - Final
Abscess Escherichia coli
Streptococcus agalactiae
Gram Stain - Final
01/17/24 17:17 Anaerobic Culture - Preliminary
Abscess Culture pending. Anaerobic cultures are examined after 3
days incubation. Additional information to follow.
01/17/24 17:17 Wound Culture - Preliminary
Abscess Escherichia coli
Streptococcus agalactiae
Gram Stain - Preliminary
01/18/24 04:37 MRSA Screen - Final
Nose No Methicillin Resistant Staphylococcus aureus isolated.
--- NOTE | 2024-01-20 10:42 | W.PN.CRS1 ---
Today's Communication / Plan
-
OR today around noon
NPO
Assessment/Plan
-
POD#1 Exam under anesthesia, excision and debridement of necrotic tissue of the perineum
POD#3 Flexible sigmoidoscopy, exam under anesthesia, incision and drainage of left gluteal abscess, extensive debridement of necrotic tissue, pulse irrigation
1. WBC 17.8, down from 24.1, continue to trend. Afebrile.
2. NPO for OR later today, around noon.
3. Insulin gtt per medicine.
4. IV antibiotics per ID.
5. DVT prophlaxis: Lovenox, DINA/SCDS.
6. Wound cultures growing E.coli and strep agalactiae.
Subjective Data
Procedure
01/19/2024- Exam under anesthesia, excision and debridement of necrotic tissue of the perineum
01/17/2024- Flexible sigmoidoscopy, exam under anesthesia, incision and drainage of left gluteal abscess, extensive debridement of necrotic tissue, pulse irrigation
Subjective Data
Date of Service: January 20, 2024
Patient states he feels 'sore'. He has not had a bowel movement since surgery. He has no other complaints.
Objective Data
-
Vital Signs
Temp Pulse Resp BP Pulse Ox
98.6 F 79 13 97/56 91
01/20/24 07:36 01/20/24 06:00 01/20/24 06:00 01/20/24 06:00 01/20/24 06:00
Intake & Output
01/19/24 01/20/24 01/21/24
06:59 06:59 06:59
Intake Total 3490.4 / 3590.4 3371.4 / 3371.4
Output Total 100 / 100 975 / 975
Balance 3390.4 / 3490.4 2396.4 / 2396.4
Intake:
Oral fluids 360 / 360
IV fluids (Total) 2435.4 / 2535.4 2896.4 / 2896.4
Insulin 35.4 / 35.4 46.4 / 46.4
Nss 1,000 ml @ 100 mls/hr IV . 2400 / 2500 2300 / 2300
Q10H DOROTHY Rx#:[id number]
normosol 550 / 550
IV piggybacks 695.0 / 695.0 475 / 475
Output:
Urine, Brandt 975 / 975
Urine, Voided 100 / 100
Other:
Number of approximated MODERATE 1 1
amounts of urine
Number of approximated LARGE 1 1
amounts of urine
Lab Results
01/20/24 03:55
Physical Exam
-
General: No Acute Distress and AOx3
Abdomen: Soft, Non Distended and Non Tender
Skin: Warm and Dry
--- NOTE | 2024-01-20 10:43 | PN.DE.MGMTRT ---
Insulin Management
- -
01/20/2024: Diabetes Management Consult:
63 year old male w/o any significant medical hx, admitted on 01/16 with a Gluteal abscess. Glucose on admission was 518, A1C 14.2%, initiated on glycemic protocol. CT findings concerning for extensive soft tissue infection, possibly necrotizing
fasciitis/developing Shilpa gangrene.
Pt is POD#1 Exam under anesthesia, excision and debridement of necrotic tissue of the perineum. POD#3 Flexible sigmoidoscopy, exam under anesthesia, incision and drainage of left gluteal abscess, extensive debridement of necrotic tissue, pulse
irrigation.
Plan for repeat I&D with possible ostomy today. Pt is NPO.
Pt seen with at bedside. A/O x3, states he was once told that he was borderline diabetic, treated was started at the time. pt able to participate in discussion re: diabetes management.
Remains on insulin drip, glucose in range w/o hypoglycemia, 75 to 135, requiring .01 to 4.5 units of insulin/hr. Cont current therapy for diabetes management. Will closely follow and reassess for readiness to transition off drip to SQ insulin.
Explained to pt that he will need insulin upon discharge home.
Attempted to provide glucose monitor and instructions, both pt and stated that now is not a good time. They would prefer education provided as he gets closer to discharge. Will closely follow.
Diabetes History
- -
Type of Diabetes: 2 requiring insulin
Pre-Admission Diabetes Regimen
01/19/24 01/19/24 01/20/24
12:41 19:22 02:00
Creatinine Cancelled 0.7 Cancelled
01/20/24
03:55
Creatinine 0.6 L
Lab Results
Hemoglobin A1c 14.2 % (4.0-5.6) H 01/18/24 04:18
Insulin Pump Settings
IP Diabetes Regimen
01/19/24 01/19/24 01/19/24
11:57 12:41 13:12
Glucose Cancelled
POC Glucose 291 H 274 H
01/19/24 01/19/24 01/19/24
14:53 17:03 18:05
Glucose
POC Glucose 241 H 193 H 244 H
01/19/24 01/19/24 01/19/24
18:55 19:22 20:01
Glucose 173 H
POC Glucose 186 H 171 H
01/19/24 01/19/24 01/19/24
21:04 22:04 23:01
Glucose
POC Glucose 136 H 91 95
01/20/24 01/20/24 01/20/24
00:57 02:00 03:06
Glucose Cancelled
POC Glucose 130 H 135 H
01/20/24 01/20/24 01/20/24
03:55 05:16 07:29
Glucose 126 H
POC Glucose 126 H 75
01/20/24 01/20/24 01/20/24
08:23 09:13 09:58
Glucose
POC Glucose 75 89 99
Meal type: Dinner
Amount consumed: 25%
Patient Education
[2024-01-20 11:24] LABS: Glucose - Point of Care 105 mg/dl (70-99)
[2024-01-20 12:11] LABS: Glucose - Point of Care 130 mg/dl (70-99)
[2024-01-20] MEDS: NOVOLIN R INSULIN INFUSION 100 IV (12:12)
[2024-01-20 12:54] LABS: Blood Urea Nitrogen 23 mg/dl (9-20); Calcium 7.7 mg/dl (8.4-10.2); Carbon Dioxide 22 mmol/L (22-30); Chloride 102 mmol/L (98-107); Estimated Creatinine Clearance > 125 ml/min; Glucose 123 mg/dl (70-99); Potassium 3.9 mmol/L (3.5-5.1); Sodium 133 mmol/L (135-145); eGFR > 60.00
--- NOTE | 2024-01-20 12:56 | PTCARENOTE ---
Report given to ASSISTANT PROFESSOR OF SURGERYMARCEL Benitez.Awaiting transport.
--- NOTE | 2024-01-20 13:51 | W.PN.ID1 ---
Date of Service
Date of Service: January 20, 2024
Today's Communication
- would avoid steroids if possible
- continue vancomycin
- continue linezolid for at least 48 hrs; continue meropenem
Assessment / Plan
Necrotizing Fasciits - progressing
Newly Diagnosed Dm2
- blood cultures no growth to date
- wound cultures from OR notable for GBS and e coli sensitive to zosyn
- would avoid steroids if possible
- continue vancomycin
- continue linezolid for at least 48 hrs; continue meropenem
- follow clinically
Chief Complaint
-: Other (necrotizing fasciitis)
Subjective / Review of Systems
afebrile
bp stable off of pressors
improved leukocytosis
01/18 gram stain: few GPCs and few GPR
for return to the OR
tolerating current therapies
Vital Signs / Physical Exam
Vital Signs
Vital Signs
Temp Pulse Resp BP Pulse Ox
98.6 F 84 20 153/28 96
01/20/24 11:20 01/20/24 11:00 01/20/24 11:00 01/20/24 11:00 01/20/24 10:00
Physical Exam
Constitutional: No Acute Distress
Cardiovascular: Regular Rate and S1/S2; Negative Murmur or Rub
Pulmonary: Clear and Symmetric; Negative Wheezes or Rales
Gastrointestinal: Soft, Non Tender, Non Distended and Normal Bowel Sounds
Skin: Warm and Dry; Negative Rash or Jaundice
Wound: Other (dressing take down deferred - already planned to return to OR today)
Objective Data
Lab Data
Lab Results
01/20/24 03:55
01/20/24 12:25
ESR Cancelled 01/17/24 12:52
PT 16.8 Sec (11.4-14.6) H 01/17/24 19:14
INR 1.38 01/17/24 19:14
APTT 31.3 Sec (23.4-35.0) 01/17/24 19:14
Estimated Creat Clear > 125 ml/min 01/20/24 12:25
Total Bilirubin 0.8 mg/dl (0.2-1.3) 01/17/24 12:10
AST 27 U/L (17-59) 01/17/24 12:10
ALT 33 U/L (0-50) 01/17/24 12:10
Alkaline Phosphatase 215 U/L (38-126) H 01/17/24 12:10
C-Reactive Protein Cancelled 01/17/24 12:52
Most recent labs reviewed.
Micro Results:
01/17/24 17:17 Anaerobic Culture - Preliminary
Abscess Culture pending. Anaerobic cultures are examined after 3
days incubation. Additional information to follow.
01/19/24 16:19 Tissue Culture - Pending
Perineum Gram Stain - Preliminary
01/17/24 14:39 Blood Culture - Preliminary
Blood/Venous No Growth in 48 hours- Final report to follow
01/17/24 14:39 Blood Culture - Preliminary
Blood/Venous No Growth in 48 hours- Final report to follow
01/17/24 12:10 Wound Culture - Final
Abscess Escherichia coli
Streptococcus agalactiae
Gram Stain - Final
01/17/24 17:17 Wound Culture - Preliminary
Abscess Escherichia coli
Streptococcus agalactiae
Gram Stain - Preliminary
01/18/24 04:37 MRSA Screen - Final
Nose No Methicillin Resistant Staphylococcus aureus isolated.
Care Review
Plan reviewed with: Physician (Dr Reardon)
[2024-01-20 14:02] LABS: Glucose - Point of Care 112 mg/dl (70-99)
--- NOTE | 2024-01-20 14:27 | PN.DE ---
Diabetes Education
- -
Consulted for Diabetes Education
63 year old male w/o significant PMH, admitted on 01/16 with a Gluteal abscess. Glucose on admission was 518, A1C 14.2%.
Met with pt and at bedside in ICU to provide diabetes education- monitor instructions and was unsuccessful. Pt states he is not feeling up to it and is not ready for diabetes education at this time. Pt's states that he will not be able to
retain anything right now, as he is worried about going to surgery in a little while. They would prefer education provided as he gets closer to discharge. Will closely follow. Will try again at a later time, ideally when he has transitioned off the
drip to SQ insulin.
--- NOTE | 2024-01-20 15:22 | W.IMMPOSTOP ---
Surgical Immed Post Op Note
-
Primary Surgeon: Daniel Jones MD
Assisting Surgeon: Giovanni Angel MD
Pre-op Diagnosis: Necrotizing soft tissue infection of the perineum
Post-op Diagnosis: Necrotizing soft tissue infection of the perineum
Procedure Performed: Flexible sigmoidoscopy, debridement of perineal wound
Anesthesia Type: General
Specimen / Cultures: None
Estimated Blood Loss: 15 mL
Complications: None
Operative Findings: Patient with anterior perineal wound and posterior perineal wound with open tunneling bilaterally around the anorectal complex (easily pass an index finger through the tunnel); from the anterior wound, small amount of necrotic
tissue debrided right/superior, minimal amount of purulent drainage, still not involving dartos fascia of the scrotum; from the posterior wound, small amount of necrotic tissue debrided inferiorly as well as left lateral edge of wound; mild amount
of purulent fluid expressed from the inferior aspect of the right/lateral portion of the posterior wound, completely expressed and pocket debrided; all necrotic tissue debrided to healthy bleeding tissue; intact viable skin bridges in the right and
left lateral portion of the perianal area; posterior and anterior wounds packed with 3 inch Kerlix soaked in Betadine with gauze, silk tape and mesh underwear
--- NOTE | 2024-01-20 15:30 | OR.RPT ---
Operative Report
Operative Report
DATE OF OPERATION: 01/20/2024
SURGEON: Daniel Jones MD
PREOPERATIVE DIAGNOSIS: Necrotizing soft tissue infection of the perineum
POSTOPERATIVE DIAGNOSIS: Same
OPERATION: Flexible sigmoidoscopy, digital disimpaction, exam under anesthesia, debridement of perineal wound, pulse irrigation
ASSISTANTS:
1. Giovanni Pinto MD
ANESTHESIA: General anesthesia
ESTIMATED BLOOD LOSS: 20 mL
FINDINGS:
1. Encountered hard stool in the rectum, evacuated with digital disimpaction; flexible sigmoidoscopy up to 15 cm showing healthy mucosa without evidence of ischemia, injury or inflammation
2. Anterior perineal wound with fibrinous exudate, minimal necrotic tissue that was debrided, small amount of purulent fluid in the right superior area near the base of the scrotum but not involving Darto's fascia
3. Posterior perineal wound with bilateral subcutaneous tunnels tracking to the anterior wound, encircling the anal canal and sphincter complex; sphincters are intact, right inferior aspect which was probed and debrided; mild amount of necrotic
tissue with fibrinous exudate debrided; skin edges debrided bilaterally
SPECIMENS:
1. None
DRAINS: N/A
COMPLICATIONS: None
INDICATIONS: The patient is a 63-year-old male who presented with 7 days of a worsening left gluteal pustule was found to be hyperglycemic with a WBC of 24 and subcutaneous emphysema tracking in the posterior perineum. He has undergone 2
debridements of necrotizing soft tissue infection of the peritoneum. Overall, he is doing well clinically, but his wound continues to have some murky/purulent drainage. Therefore, I recommended a repeat exam under anesthesia with flexible
sigmoidoscopy and possible debridement. The operation was discussed with the patient and in detail, including the risks, benefits and alternatives. Risks described included, but not limited to bleeding, infection, damage to nearby structures
(such as the anal sphincters, nerves, blood vessels, rectum, testicles, scrotum), risk of fecal incontinence, repeated procedures for infection control, possible ostomy if involvement of the anorectum discovered and anesthetic risks. The patient
understood and agreed to proceed. The consent was signed and placed in the chart.
PROCEDURE IN DETAIL: The patient was taken to the operating room and placed in high lithotomy position. A Brandt was already in place. SCDs were placed bilaterally. Both arms were secured to the arm boards in slightly extended position. General
anesthesia was induced and the patient was intubated without complication. A timeout was performed verifying the correct patient, procedure, operative site, positioning and special equipment. I performed a flexible sigmoidoscopy. I first performed
a digital rectal exam. There were no palpable masses, no gross blood and no evidence of fluctuance along the anal canal. There was hard stool within the rectal vault, which I removed with digital disimpaction. The sigmoidoscope was then inserted
transanally and advanced to about 15 cm, where I encountered solid stool. I then withdrew evaluating the mucosa which was visible circumferentially. The rectal mucosa appeared healthy without any evidence of ischemia, injury or inflammation. The
sigmoidoscope was then removed. The perineum including both perineal wounds were prepped with Betadine and draped in sterile fashion.
The perineal blanching erythema had significantly improved and almost resolved. I first evaluated the anterior wound with Dr. Giovanni Pinto. There was a minimal amount of necrotic tissue with some fibrinous exudate. This was sharply debrided
with Metzenbaum scissors. Hemostasis was achieved with electrocautery. There was some undermining in the right superior portion of the wound with minimal amount of purulent drainage. This area was sharply debrided to healthy bleeding tissue.
This area came close to the base of the scrotum, but did not violate Dartos fascia. Therefore, I did not call Dr. Avalos with urology. The skin edges were healthy. Hemostasis was achieved with electrocautery. The subcutaneous tunnels around the
anal sphincter complex to the posterior wound evaluated. There was fibrinous exudate along the tunnels, which was curetted. There was no grossly necrotic tissue and there was some bleeding noted with curettage, so the tunnels were not further
debrided.
I evaluated the posterior wound. There was mild amount of necrotic tissue involving the base, which was sharply debrided with Metzenbaum scissors to healthy bleeding tissue. In the right superior aspect of the posterior wound, there was some
fibrinous exudate with murky fluid, which was debrided. The overlying skin was also debrided, as this was thin and likely to become ischemic. The right inferior aspect was noted to have some purulent drainage, at most 2 to 3 mL. This area was
probed and no cavity was identified. The area was debrided to healthy bleeding tissue. The left superior aspect of the wound had fibrinous exudate with some necrotic tissue, which was sharply debrided to healthy bleeding tissue. Again, the
overlying skin had to be excised as this was thinned out after cleaning up the necrotic tissue. The bilateral skin bridges to the anorectal complex were intact and appeared healthy without erythema or ischemia. Therefore, I left these intact. The
skin bridges were about 5 to 6 cm wide bilaterally. Both anterior and posterior wounds were pulse lavaged for about 5 minutes total. The wound was closely evaluated for any further necrotic tissue and hemostasis was assured. The wound was then
packed with one 3 inch kerlix that was soaked in Betadine.
At this point, the procedure was complete. All needle, sponge and instrument counts were correct. The patient tolerated the procedure well and was transferred to the recovery room in stable condition with gauze dressing in place secured with silk
tape.
Of note, Giovanni Angel MD, healthcare administrative assistant, was necessary during this procedure for traction, countertraction, and exploratory purposes. I was present for the entire duration of the case.
DICTATED BY: Daniel Jones MD
[2024-01-20] MEDS: DILAUDID 0.5 MG IV (15:41)
[2024-01-20 16:08] LABS: Glucose - Point of Care 122 mg/dl (70-99)
--- NOTE | 2024-01-20 16:33 | PTCARENOTE ---
1534-Pt transported from OR to ICU via bed.Pt is awake and alert.c/o severe incisional pain.Medicated with Dilaudid with good relief.Pt assisting with repositioning.SR noted.IVF and Glycemic Insulin infusing.POX 95% on RA.Tolerating water.Pt states
he will order dinner later.Brandt draining yellow urine.Incision intact with dressing.Pt's and daughter at bedside.Plan of care discussed.
[2024-01-20] MEDS: LOVENOX 40 MG SC (17:52)
[2024-01-20 17:57] LABS: Glucose - Point of Care 167 mg/dl (70-99)
--- NOTE | 2024-01-20 20:00 | PTCARENOTE ---
Rec'd pt resting in bed, follows commands, JAMESON, denies pain at present; SR, bp stable,on glycemic protocal- see flow sheet for insulin titrations, + pulses, no edema, skin warm/dry, buttock wound w/ betadine soaked dsg, denies chest pain, RA, lungs
decr in bases, enc to use IS- reaches 2000, sat 96, + bowel sounds, no bm, abd soft, no n/v, taylor diet, grant draining yellow urine
[2024-01-20 20:06] LABS: Glucose - Point of Care 207 mg/dl (70-99)
[2024-01-20] MEDS: TYLENOL PO (20:35)
[2024-01-20 21:07] LABS: Glucose - Point of Care 173 mg/dl (70-99)
[2024-01-20 21:23] LABS: Vancomycin Peak 19.8 ug/ml (18-26)
[2024-01-20 22:13] LABS: Glucose - Point of Care 158 mg/dl (70-99)
[2024-01-20 23:09] LABS: Glucose - Point of Care 138 mg/dl (70-99)
[2024-01-21] VITALS (19 sets, daily range): BP systolic 102–148; BP diastolic 46–80; BMI 33.2
--- NOTE | 2024-01-21 | PTCARENOTE ---
sys reviewed, pt comfortable at this time
[2024-01-21 00:03] LABS: Glucose - Point of Care 129 mg/dl (70-99)
[2024-01-21 01:09] LABS: Glucose - Point of Care 160 mg/dl (70-99)
[2024-01-21] MEDS: TORADOL 15 MG IV ×4 (01:48→19:24)
[2024-01-21] MEDS: TYLENOL 1000 MG PO ×4 (03:07→22:04)
[2024-01-21 03:14] LABS: Glucose - Point of Care 115 mg/dl (70-99)
[2024-01-21 03:24] LABS: % Basophils 0.1 % (0-2); % Eosinophils 0.3 % (0-6); % Immature Granulocytes 8.2 % (0-0.5); % Lymphocytes 7.6 % (20.5-51.1); % Monocytes 6.7 % (1.7-9.3); % Neutrophils 77.1 % (42.2-75.2); Absolute Eosinophils 0.1 10^3/uL (0-0.7); Absolute Immature Granulocytes 1.7 10^3/uL (0-0.05); Absolute Lymphocytes 1.5 10^3/uL (1.2-3.4); Absolute Monocytes 1.4 10^3/uL (0.1-0.6); Absolute Neutrophils 15.5 10^3/uL (1.4-6.5); Hematocrit 36.4 % (39.0-52.0); Hemoglobin 12.6 g/dL (13.0-18.0); Mean Corp Hgb Conc. 34.6 g/dL (33.0-37.0); Mean Corpuscular Hgb 28.6 pg (27.0-31.0); Mean Corpuscular Volume 82.5 fL (80.0-94.0); Mean Platelet Volume 10.4 fL (7.4-10.4); Nucleated Red Blood Cells % 0 % (-); Platelet Count 320 10^3/uL (130-400); Red Blood Cell Count 4.41 10^6/uL (4.70-6.10); Red Cell Dist. Width 14.3 % (11.5-14.5); White Blood Cell Count 20.1 10^3/uL (4.8-10.8)
[2024-01-21 03:35] LABS: Vancomycin Trough 13.2 ug/ml (5-20)
[2024-01-21 03:45] LABS: Blood Urea Nitrogen 20 mg/dl (9-20); Calcium 7.7 mg/dl (8.4-10.2); Carbon Dioxide 26 mmol/L (22-30); Chloride 104 mmol/L (98-107); Estimated Creatinine Clearance > 125 ml/min; Glucose 117 mg/dl (70-99); Potassium 3.7 mmol/L (3.5-5.1); Sodium 134 mmol/L (135-145); eGFR > 60.00
--- NOTE | 2024-01-21 04:00 | PTCARENOTE ---
sys reviewed, changes noted, resting comf
[2024-01-21] MEDS: MERREM 500 MG IV ×4 (04:23→22:05)
[2024-01-21] MEDS: STERILE WATER FOR INJECTION 10 ML IV ×4 (04:24→22:05)
[2024-01-21] MEDS: VANCOCIN 275 MG IV (05:02)
[2024-01-21 05:08] LABS: Glucose - Point of Care 92 mg/dl (70-99)
[2024-01-21] MEDS: NSS 1000 IV ×2 (06:44→22:18)
--- NOTE | 2024-01-21 06:56 | W.PN.INTV ---
Documented by User: Aram Catalan MD, Resident 01/21/24 12:18
Today's Communication / Plan
Recommendations
N.p.o. past midnight.
Return to the OR tomorrow, possible colostomy.
Continue antibiotics, trend white count.
Insulin infusion discontinued, start on Lantus, NovoLog and metformin at at bedtime
Incentive spirometry.
Assessment
-
63-year-old male without medical history, developed boil on buttocks for 1 week, progressed to the point where prompted ED visit, found to have gluteal abscess requiring I&D, flexible sigmoidoscopy. Patient given IV antibiotics, admitted to ICU.
Required IV insulin drip due to significantly elevated blood sugars. Admitted to ICU
ASSESSMENT:
Left gluteal abscess/boil
Requiring debridement of perineal wound with Cx OR 01/16, 01/18, and 01/19.
Possible redebridement tomorrow.
Newly diagnosed diabetes
Requiring 0.4 units of insulin per hour glycemic protocol.
Transitioned to 20 units Lantus at hs, 5 units NovoLog AC and 500 mg twice daily.
Leukocytosis
Hyponatremia
Elevated right hemidiaphragm, chronic
Nephrolithiasis per prior imaging
Suspected sleep disordered breathing
CONDITIONS PRIOR TO ADMISSION:
Impression/Plan:
Left gluteal abscess/boil.
-Necrotizing fasciitis in the setting of undiagnosed diabetes mellitus type 2.
-Incision and drainage with debridement of perineal necrotic tissue in CX OR 01/17/2024 with growth of E. coli and strep agalactiae; excision and debridement Cx 01/18 with gram-negative rods.
-Debridement of perineal necrotic tissue 01/20/2024, did not require colostomy.
-Patient to return to the OR for further debridement 01/21 with possible colostomy.
-Patient afebrile with WBC count 20.1 Continue to trend.
-Continue vancomycin, meropenem and linezolid day 3.
-Blood cultures NTD
-Continue wound care.
-Colorectal surgery following
Returning to OR 01-21
-Pain mgmt
Patient with worsening blood sugars, progressive infection.
-Newly diagnosed diabetes mellitus with A1c 14.2 and blood glucose 518 on admission.
-Currently on glycemic protocol requiring 0.4 units/h insulin.
-Diabetic diet and insulin drip tape.
-Start Lantus 20 units tonight with 5 units AC NovoLog and metformin 500 mg BID, special educator following.
-Replete electrolytes as needed.
-Patient advised to improve his medical compliance, he has not seen his primary for 7 years.
Leukocytosis
-Currently afebrile with leukocyte count 20.4.
-Continue antibiotics and monitor white counts.
-Continue with supportive care, IV fluids, broad-spectrum antibiotics (vancomycin, linezolid, meropenem), ID following
-Abscess cx 01-16: E coli, Strep agalactiae
-Blood cxs NTD
-CXR 01-18: no infiltrates. Elevated R diaphragm. RUE PICC in place
Incentive spirometry
DVT prophylaxis: Remains on Lovenox
Can transfer to [facility] once off IV insulin
Critical care time: 35 min
Subjective Dataa
Subjective Data
Date of Service:
Date of Service: January 21, 2024
Chief Complaint: Equipment Cleaner And Tester Follow Up
Subjective:
Overnight, there was no significant events. Patient remained afebrile with elevated white counts, otherwise his vitals were stable.
Review of Systems
General: Fever (n) and Chills (n)
Cardiopulmonary: Dyspnea (n), Cough (n), Wheezing (n) and Chest Pain (n)
GI: Abdominal Pain (n) and Other (incisional perineal pain)
Neuro: Headache (n) and Weakness (n)
Genitourinary: Brandt
Objective Data
Data Reviewed
Vital Signs / I&O / Oxygen:
Vital Signs
Temp Pulse Resp BP Pulse Ox
100 F 76 17 132/80 93
01/21/24 04:00 01/21/24 06:00 01/21/24 06:00 01/21/24 06:00 01/21/24 03:00
Intake and Output
01/19/24 01/20/24 01/21/24
06:59 06:59 06:59
Intake Total 3490.4 / 3590.4 3371.4 / 3471.5 2865.5 / 2865.5
Output Total 100 / 100 975 / 975 2125 / 2125
Balance 3390.4 / 3490.4 2396.4 / 2496.5 740.5 / 740.5
SaO2 93
Nasal Cannula flow liters per 3
minute
Physical Exam
General: Comfortable, Pain (n), Fever (n), Chills (n) and Poor Appetite
HEENT: Normocephalic, Anicteric and Moist Mucous Membranes
Cardiovascular: S1-S2, Regular Rhythm, Murmur (n) and Peripheral Edema (n)
Respiratory: Wheeze (n), Crackles (n), Rhonchi (n) and Non-Labored Respirations
GI: Soft, Non Distended, Non Tender and Normal Bowel Sounds
Neurology: Awake, Alert, AO x 3 and No Motor Deficits
Skin: Warm, Cyanosis (n), Jaundice (n) and Rash (n)
Labs/Micro/Reports
Lab Data
01/21/24 03:04
01/21/24 03:04
Microbiology
01/17/24 14:39 Blood/Venous Blood Culture - Preliminary
No Growth in 72 hours- Final report to follow
01/17/24 14:39 Blood/Venous Blood Culture - Preliminary
No Growth in 72 hours- Final report to follow
01/17/24 17:17 Abscess Anaerobic Culture - Preliminary
Culture pending. Anaerobic cultures are examined after 3
days incubation. Additional information to follow.
01/19/24 16:19 Perineum Gram Stain - Preliminary
01/17/24 12:10 Abscess Wound Culture - Final
Escherichia coli
Streptococcus agalactiae
01/17/24 12:10 Abscess Gram Stain - Final
01/17/24 17:17 Abscess Wound Culture - Preliminary
Escherichia coli
Streptococcus agalactiae
01/17/24 17:17 Abscess Gram Stain - Preliminary
01/18/24 04:37 Nose MRSA Screen - Final
No Methicillin Resistant Staphylococcus aureus isolated.

Documented by User: Kwaku Gomez MD 01/21/24 16:27
Assessment
-
63-year-old male without medical history, developed boil on buttocks for 1 week, progressed to the point where prompted ED visit, found to have gluteal abscess requiring I&D, flexible sigmoidoscopy. Patient given IV antibiotics, admitted to ICU.
Required IV insulin drip due to significantly elevated blood sugars. Admitted to ICU
ASSESSMENT:
Left gluteal abscess/boil
Requiring debridement of perineal wound with Cx OR 01/16, 01/18, and 01/19.
Possible redebridement 01-21
Newly diagnosed DM
Requiring 0.4 units of insulin per hour glycemic protocol.
Transitioned to 20 units Lantus at hs, 5 units NovoLog AC and 500 mg twice daily: 01-20
Leukocytosis
Hyponatremia
Elevated right hemidiaphragm, chronic
Nephrolithiasis per prior imaging
Suspected sleep disordered breathing
CONDITIONS PRIOR TO ADMISSION:
Impression/Plan:
Left gluteal abscess/boil.
-Necrotizing fasciitis in the setting of undiagnosed diabetes mellitus type 2.
-Incision and drainage with debridement of perineal necrotic tissue in CX OR 01/17/2024 with growth of E. coli and strep agalactiae; excision and debridement Cx 01/18 with gram-negative rods.
-Debridement of perineal necrotic tissue 01/20/2024, did not require colostomy.
-Patient to return to the OR for further debridement 01/21: may not need colostomy.
-Patient afebrile with WBC count 20.1 Continue to trend.
-Continue vancomycin, meropenem and linezolid day 3.
-Blood cultures NTD
-Continue wound care.
-Colorectal surgery following
Returning to OR 01-21
-Pain mgmt
Patient with worsening blood sugars, progressive infection.
-Newly diagnosed diabetes mellitus with A1c 14.2 and blood glucose 518 on admission.
-Currently on glycemic protocol requiring 0.4 units/h insulin.
-Diabetic diet and insulin drip tape.
-Start Lantus 20 units tonight with 5 units AC NovoLog and metformin 500 mg BID, special educator following since 01-19
-Replete electrolytes as needed.
-Patient advised to improve his medical compliance, he has not seen his primary for 7 years.
Leukocytosis
-Currently afebrile with leukocyte count 20.4.
-Continue antibiotics and monitor white counts.
-Continue with supportive care, IV fluids, broad-spectrum antibiotics (vancomycin, linezolid, meropenem), ID following
-Abscess cx 01-16: E coli, Strep agalactiae
-Blood cxs NTD
-CXR 01-18: no infiltrates. Elevated R diaphragm. RUE PICC in place
Incentive spirometry
DVT prophylaxis: Remains on Lovenox
Can transfer to [facility] once off IV insulin, will sign off then
No critical care time charged today
ATTENDING PHYSICIAN ATTESTATION:
(Follow-up Visit:)
I personally saw and evaluated the patient along with the Resident Dr Catalan.
Discussed with Resident and discussed in rounds with MDT.
I agree with Resident�s findings and plan as documented in the resident�s note, which was edited by myself.
[2024-01-21 07:11] LABS: Glucose - Point of Care 88 mg/dl (70-99)
[2024-01-21] MEDS: NOVOLOG FLEXPEN SC ×4 (07:15→18:02)
[2024-01-21] MEDS: ROXICODONE 5 MG PO ×2 (08:40→18:14)
[2024-01-21 08:58] LABS: Glucose - Point of Care 90 mg/dl (70-99)
--- NOTE | 2024-01-21 09:09 | PHA.VAN.FU ---
Vancomycin Assessment / Plan
- Assessment
Renal Function: Stable
WBC's are: Trending Up
In the past 24 hrs, patient has been: Afebrile
Concomitant Antimicrobials: linezolid, meropenem
- Assessment - Therapeutic Drug Monitoring
Extrapolated Cmax (mcg/mL): 21.9
Peak level was drawn: Appropriately (drawn ~1.5H after end of previous infusion)
Extrapolated Cmin (mcg/mL): 10.9
Trough Drawn: Appropriately
Levels were drawn: At steady state (drawn after 5th maintenance dose)
Calculated AUC (mcg*h/mL): 381
Calculated ke: 0.0661
Calculated half life (H): 10.5
Calculated Vd (L): 99 (~0.87)
Calculated Vanc CL (ml/min): 109
- Dosing Plan
Adjust Regimen to: Vanc 1500mg Q12H starting at 1800
New Regimen Predicts: AUC (480), Peak (27.6), Trough (13.8)
- Monitoring Plan
No level(s) ordered at this time: consider repeat levels in next several days
- Follow Up
Pharmacy will continue to follow.
Vancomycin Follow UP
- -
Patient Age: 63
Patient Sex: Male
Vancomycin Day #: 5
Indication: Skin And Soft Tissue
Requesting Provider: Dr. Reardon / Jennifer
Pertinent Antimicrobial Allergies:
No antibiotic allergies
Height / Weight:
Height 6 ft 1 in
Actual Weight 114.1 kg
IBW in k.9
Adjusted BW in k
Pertinent Past Medical History: DM, BMI ~31
- Vital Signs / Lab Results
Temp Pulse Resp BP Pulse Ox
97.6 F 71 11 124/59 96
01/21/24 07:57 01/21/24 07:00 01/21/24 07:00 01/21/24 07:00 01/21/24 07:00
Lab Results - Hematology
01/18/24 01/19/24 01/20/24
04:18 04:57 03:55
WBC 21.4 H 24.1 H 17.8 H
Band Neutrophils 12 H
01/21/24
03:04
WBC 20.1 H
Band Neutrophils
Lab Results - Chemistry
01/18/24 01/19/24 01/19/24
08:35 04:57 12:41
BUN 32 H 41 H Cancelled
Creatinine 0.9 0.9 Cancelled
Estimated Creat Clear 110 110 Cancelled
01/19/24 01/20/24 01/20/24
19:22 02:00 03:55
BUN 35 H Cancelled 29 H
Creatinine 0.7 Cancelled 0.6 L
Estimated Creat Clear > 125 Cancelled > 125
01/20/24 01/21/24
12:25 03:04
BUN 23 H 20
Creatinine 0.6 L 0.6 L
Estimated Creat Clear > 125 > 125
Microbiology Results
01/19/24 16:19 Tissue Culture - Preliminary
Perineum Gram negative bacilli
Gram Stain - Preliminary
01/17/24 14:39 Blood Culture - Preliminary
Blood/Venous No Growth in 72 hours- Final report to follow
01/17/24 14:39 Blood Culture - Preliminary
Blood/Venous No Growth in 72 hours- Final report to follow
01/17/24 17:17 Anaerobic Culture - Preliminary
Abscess Culture pending. Anaerobic cultures are examined after 3
days incubation. Additional information to follow.
01/17/24 12:10 Wound Culture - Final
Abscess Escherichia coli
Streptococcus agalactiae
Gram Stain - Final
01/17/24 17:17 Wound Culture - Preliminary
Abscess Escherichia coli
Streptococcus agalactiae
Gram Stain - Preliminary
01/18/24 04:37 MRSA Screen - Final
Nose No Methicillin Resistant Staphylococcus aureus isolated.
Therapeutic Drug Monitoring
Vancomycin Peak 19.8 ug/ml (18-26) 01/20/24 20:56
Vancomycin Trough 13.2 ug/ml (5-20) 01/21/24 03:04
--- NOTE | 2024-01-21 09:28 | W.PN.ID1 ---
Date of Service
Date of Service: January 21, 2024
Today's Communication
- continue vancomycin, meropenem
- stop linezolid at 48 hrs
Assessment / Plan
Necrotizing Fasciitis
Newly Diagnosed Dm2
- blood cultures no growth to date
- wound cultures from OR notable for GBS and e coli
- continue vancomycin, meropenem
- stop linezolid at 48 hrs
- follow clinically
Chief Complaint
-: Other (necrotizing fasciitis)
Subjective / Review of Systems
Tmax 100.0
bp stable
WBC overall improved
hgb stable
L shift now improving
cr 0.6
01/18 tissue culture has grown GNR
OR yesterday: minimal purulent drainage, mild purulent fluid
Vital Signs / Physical Exam
Vital Signs
Vital Signs
Temp Pulse Resp BP Pulse Ox
97.6 F 71 11 124/59 96
01/21/24 07:57 01/21/24 07:00 01/21/24 07:00 01/21/24 07:00 01/21/24 07:00
Physical Exam
Constitutional: No Acute Distress
Cardiovascular: Regular Rate and S1/S2; Negative Murmur or Rub
Pulmonary: Clear and Symmetric; Negative Wheezes or Rales
Gastrointestinal: Soft, Non Tender, Non Distended and Normal Bowel Sounds
Skin: Warm and Dry; Negative Rash or Jaundice
Wound: Other (packing clean, dry, intact skin around the wound - minimal induration on the right lateral side)
Objective Data
Lab Data
Lab Results
01/21/24 03:04
01/21/24 03:04
ESR Cancelled 01/17/24 12:52
PT 16.8 Sec (11.4-14.6) H 01/17/24 19:14
INR 1.38 04/12/24 19:14
APTT 31.3 Sec (23.4-35.0) 01/17/24 19:14
Estimated Creat Clear > 125 ml/min 01/21/24 03:04
Total Bilirubin 0.8 mg/dl (0.2-1.3) 01/17/24 12:10
AST 27 U/L (17-59) 01/17/24 12:10
ALT 33 U/L (0-50) 01/17/24 12:10
Alkaline Phosphatase 215 U/L (38-126) H 01/17/24 12:10
C-Reactive Protein Cancelled 01/17/24 12:52
Most recent labs reviewed.
Micro Results:
01/19/24 16:19 Tissue Culture - Preliminary
Perineum Gram negative bacilli
Gram Stain - Preliminary
01/17/24 14:39 Blood Culture - Preliminary
Blood/Venous No Growth in 72 hours- Final report to follow
01/17/24 14:39 Blood Culture - Preliminary
Blood/Venous No Growth in 72 hours- Final report to follow
01/17/24 17:17 Anaerobic Culture - Preliminary
Abscess Culture pending. Anaerobic cultures are examined after 3
days incubation. Additional information to follow.
01/17/24 12:10 Wound Culture - Final
Abscess Escherichia coli
Streptococcus agalactiae
Gram Stain - Final
01/17/24 17:17 Wound Culture - Preliminary
Abscess Escherichia coli
Streptococcus agalactiae
Gram Stain - Preliminary
01/18/24 04:37 MRSA Screen - Final
Nose No Methicillin Resistant Staphylococcus aureus isolated.
--- NOTE | 2024-01-21 09:42 | W.PN.CRS1 ---
Today's Communication / Plan
-
NPO past MN for repeat EUA tomorrow
BID packing
Assessment/Plan
-
63-year-old male with PMH of deafness s/p cochlear implants, previous neck abscesses who presents for increasing pain in the left buttock x 1 week; 2 to 3 days ago, the abscess opened and started draining; he went to an urgent care today, who sent
him to the ED; WBC 24, glucose 518, creatinine 1.0, Hb 14, afebrile but tachycardic to 120s, CT showing concern for Shilpa's
POD 4 flex sig (anorectal mucosa healthy), I&D and debridement of posterior perineum, sent cultures
POD 2 debridement of perineal wound, opening of anterior perineum near (but not involving) base of scrotum; cultures sent
POD 1 flex sig (anorectal mucosa healthy), further perineal wound debridement
�Appreciate hospitalist, diamond grinder
� Okay for diabetic diet; make n.p.o. past midnight
� Keep n.p.o. with aggressive IVF resuscitation
� Continue broad-spectrum IV antibiotics; follow-up cultures; appreciate ID
-OR Cx 01/16 - ecoli and strep agalactiae, OR Cx 01/18 - GNR
� Pain control
- Undiagnosed diabetes, cont insulin mgmt per primary
� S/p ostomy marking; appreciate wound care
-BID WTD packing with kerlix (AM by surgery team; PM by nurse)
- Plan for repeat EUA and possible debridement tomorrow
-May need diverting ostomy, but ostomy creation has many risks; will follow his fecal continence
Subjective Data
Procedure
01/19/2024- Exam under anesthesia, excision and debridement of necrotic tissue of the perineum
01/17/2024- Flexible sigmoidoscopy, exam under anesthesia, incision and drainage of left gluteal abscess, extensive debridement of necrotic tissue, pulse irrigation
Subjective Data
Date of Service: January 21, 2024
No overnight events.
Pain controlled.
Denies nausea/vomiting. Tolerating diet.
+flatus -BMs + Brandt
Pt is OOB.
Objective Data
-
Vital Signs
Temp Pulse Resp BP Pulse Ox
97.6 F 71 11 124/59 96
01/21/24 07:57 01/21/24 07:00 01/21/24 07:00 01/21/24 07:00 01/21/24 07:00
Intake & Output
01/20/24 01/21/24 01/22/24
06:59 06:59 06:59
Intake Total 3371.4 / 3471.5 2865.5 / 2966.1 201.0 / 201.0
Output Total 975 / 975 2125 / 2125 140 / 140
Balance 2396.4 / 2496.5 740.5 / 841.1 61.0 / 61.0
Intake:
Oral fluids 150 / 150
IV fluids (Total) 2896.4 / 2996.5 2140.5 / 2241.1 201.0 / 201.0
Insulin 46.4 / 46.5 40.5 / 41.1 1.0 / 1.0
Nss 1,000 ml @ 100 mls/hr IV . 2300 / 2400 2100 / 2200 200 / 200
Q10H DOROTHY Rx#:[id number]
normosol 550 / 550
IV piggybacks 475 / 475 575 / 575
Output:
Urine, Brandt 975 / 975 2125 / 2125 140 / 140
Other:
Number of approximated MODERATE 1
amounts of urine
Number of approximated LARGE 1
amounts of urine
Lab Results
01/21/24 03:04
01/21/24 03:04
Physical Exam
-
General: No Acute Distress and AOx3
HEENT: Grossly Normal
Abdomen: Soft, Non Distended, Non Tender, No Guarding and No Rebound
Skin: Warm and Dry
Wound: No Signs of Infection and Other (Surrounding erythema essentially resolved; posterior wound clean with evidence of granulation, no purulence; anterior wound with some murky drainage, no necrotic tissue no obvious pus; wound repacked)
--- NOTE | 2024-01-21 10:16 | PN.DE.MGMTRT ---
Insulin Management
- -
01/21/2024: Diabetes Management Consult Follow up:
Patient admitted on 01/16 with a Gluteal abscess. Glucose on admission was 518, A1C 14.2%, initiated on glycemic protocol. 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
Patient awake alert and oriented, resting in bed but able to participate in discussion regarding diabetes management. He states he was once told that he was borderline diabetic.
Currently on glycemic protocol requiring .4 units of insulin per hour. Patient has diet ordered, will transition from glycemic protocol to 15 units lantus now, stop insulin infusion 2 hours after lantus administered and 20 units tonight @ hs with 5
units novolog AC and 500 mg metformin BID.
Patient states he most likely will require surgery tomorrow. Will provide education after next surgery.
Diabetes History
- -
Type of Diabetes: 2 requiring insulin
Pre-Admission Diabetes Regimen
01/20/24 01/21/24
12:25 03:04
Creatinine 0.6 L 0.6 L
Lab Results
Hemoglobin A1c 14.2 % (4.0-5.6) H 01/18/24 04:18
Insulin Pump Settings
IP Diabetes Regimen
01/20/24 01/20/24 01/20/24
11:12 12:00 12:25
Glucose 123 H
POC Glucose 105 H 130 H
01/20/24 01/20/24 01/20/24
13:59 15:57 17:46
Glucose
POC Glucose 112 H 122 H 167 H
01/20/24 01/20/24 01/20/24
19:55 20:55 21:59
Glucose
POC Glucose 207 H 173 H 158 H
01/20/24 01/20/24 01/21/24
22:58 23:52 00:58
Glucose
POC Glucose 138 H 129 H 160 H
01/21/24 01/21/24 01/21/24
03:02 03:04 04:57
Glucose 117 H
POC Glucose 115 H 92
01/21/24 01/21/24
07:00 08:47
Glucose
POC Glucose 88 90
Meal type: Dinner
Amount consumed: 25%
Patient Education
[2024-01-21] MEDS: MIRALAX 17 GRAMS PO (10:39)
[2024-01-21] MEDS: SENOKOT-S 1 TABLET PO (10:39)
[2024-01-21 10:54] LABS: Glucose - Point of Care 97 mg/dl (70-99)
[2024-01-21] MEDS: LANTUS 0.149999999999999994 UNITS SC (11:33)
[2024-01-21] MEDS: GLUCOPHAGE 500 MG PO ×2 (11:33→16:37)
[2024-01-21] MEDS: NOVOLOG FLEXPEN 5 UNITS SC (11:34)
--- NOTE | 2024-01-21 11:36 | CM ---
Patient seen at bedside. Patient stated that he lives in a one story home with 2 steps to enter. Patient live with his . Patient currently in ICU s/p 01/20/24. Patient stated that his Physician is from [facility] but can't remember name.
[facility] uses [facility] in [place]. Patient has no DME at this time. Patient stated that he was planning to go home with and was uncertain about VN needs. CM will continue to follow for discharge planning needs.
Plan; home with no needs vs home with VN; watch for needs/assessments
--- NOTE | 2024-01-21 12:53 | PN.CDI ---
CDI
- -
CDI:
Physician Documentation Request
Admit Date: 01/17/24 17:54
Dear Doctor Alexys,
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
01/19 PN, 'excision and debridement of necrotic tissue of the perineum on 01/18....continue Merrem and Zyvox.'
On admission, WBC 24.7 and HR> 90.
Please clarify which of the following most accurately describes the status of the patient's infection:
Sepsis, POA
Shilpa's gangrene only
Other
Sepsis
- Systemic manifestations of infection, with 2 or more SIRS criteria which include:
- Fever >100.4 degrees F or hypothermia < 96.8 degrees F
- Leukocytosis - WBC > 12,000 or leukopenia - WBC < 4,000 or > 10% bands
- Tachycardia > 90 beats per minute
- Tachypnea - RR > 20 breaths per minute or PaCO2 , 32mmHg
Source: Merck Manual 2013
- Indicate the known or suspected organism
- Indicate the known or suspected underlying infection, such necrotic tissue
Localized Infection Only, Without Systemic Illness
- indicate the site/source, such as necrotic tissue
Other
Unable to Determine
Use of terms such as suspected, likely, concern for, or probable (associated with a specific diagnosis that is being evaluated, monitored, or treated as if it exists) are acceptable and can be coded in the inpatient setting, when documented at the
time of discharge.
Thank you,
Brittani VELÁZQUEZ,RN,CCDS
CDI Specialist
Available via [place] text
Please use your independent medical judgment in providing your response.
--- NOTE | 2024-01-21 13:00 | PTCARENOTE ---
Pt aaox3. Reports pain tolerable, only requiring PRN Oxycodone after morning dressing change. Sinus rhythm. Appetite improved. Transitioned off insulin gtt. Diabetes education with pt and today. Ambulated to bathroom with 1 assist. +BM.
Packing changed to perirectal/sacral wound after BM d/t soilage. All other assessments unchanged.
[2024-01-21 13:48] LABS: Glucose - Point of Care 122 mg/dl (70-99)
--- NOTE | 2024-01-21 15:09 | W.PN.HOSP.TC ---
Today's Communication/Plan
-
transitioned to SC insulin
transfer MS floor
Assessment / Plan
Assessment / Plan
Assessment:
Gluteal abscess
- CT: Symmetric skin thickening and rather extensive inflammatory stranding seen within the buttocks along the gluteal clefts with extensive subcutaneous emphysema with gas extending inferiorly into the perineum. No discrete or drainable fluid
collections appreciated. Findings concerning for extensive soft tissue infection, possibly necrotizing fasciitis/developing Shilpa gangrene.
- s/p Flexible sigmoidoscopy, exam under anesthesia, incision and drainage of left gluteal abscess, extensive debridement of necrotic tissue, pulse irrigation on 01/17
- s/p Exam under anesthesia, excision and debridement of necrotic tissue of the perineum on 01/18
- s/p excision and debridement of necrotic tissue 01/19
- for repeat OR 01/21
- follow Surgery recs
- continue IVF
- continue Vanco/Merrem/Zyvox, day 3. follow cultures (so far growing E. Coli, Strep)
- ID following
- pain control
Hyponatremia, pseudohyponatremia from Hypoglycemia
HHNK
- weaned off critical care insulin drip protocol
- continue SC insulin
- A1c is 14
- LABOR MEDIATOR and educator following
Hx of cochlear implants
Hypokalemia - replete prn
DVT ppx: SCDs
Code: Full
Total Critical Care Time 41 minutes. I was immediately available to the patient and staff. I personally examined, reviewed labs, diagnostic images/reports, interpretations, treatment plans, discussed patient care with other providers and family
or caregivers (if patient is unable to make decisions), entered orders as appropriate and documented the medical record.
Anticipated Discharge: > 48 hours
Subjective/Interval History
-
Date of Service: January 21, 2024
resting no complaints
off insulin drip
Objective Data
-
Labs:
Laboratory Results
01/21/24
03:04
WBC 20.1 H
Hgb 12.6 L
Hct 36.4 L
Plt Count 320
Sodium 134 L
Potassium 3.7
Chloride 104
Carbon Dioxide 26
BUN 20
Creatinine 0.6 L
Glucose 117 H
Calcium 7.7 L
Vital Signs:
Vital Signs
Temp Pulse Resp BP Pulse Ox
98.3 F 73 14 124/77 97
01/21/24 12:05 01/21/24 14:00 01/21/24 14:00 01/21/24 14:00 01/21/24 14:00
I&O
01/20/24 01/21/24 01/22/24
06:59 06:59 06:59
Intake Total 3371.4 / 3471.5 2865.5 / 2966.1 1494.2 / 1494.2
Output Total 975 / 975 2125 / 2125 855 / 855
Balance 2396.4 / 2496.5 740.5 / 841.1 639.2 / 639.2
Physical Exam
-
General: Well Developed and Well Nourished
HEENT: Normocephalic and Atraumatic
Respiratory: Negative Wheezes or Rales
Cardiac: Regular Rhythm and S1/S2
GI: Soft
Genito-urinary: No Costovertebral Tender
Musculoskeletal: No Edema
Neuro: AO x 3
Hematologic / Lymphatic: No Lymphadenopathy
Psych: Calm
Data Reviewed
-
Critical Care Time (in minutes): 42
Labs: Labs Reviewed by me
[2024-01-21 16:46] LABS: Glucose - Point of Care 96 mg/dl (70-99)
[2024-01-21] MEDS: LOVENOX 40 MG SC (18:15)
[2024-01-21] MEDS: VANCOCIN 300 MG IV (18:15)
[2024-01-21] MEDS: VANCOCIN 300 ML IV (18:15)
--- NOTE | 2024-01-21 18:56 | PTCARENOTE ---
Pt ambulated to bathroom and had partially formed, partially loose stool. Dressing soiled. Dressing changes for both perineum and buttocks wounds per order. Pt given per oxycodone just prior to dressing change. Pt reported 10/10 pain at times
during dressing change.
--- NOTE | 2024-01-21 20:00 | PTCARENOTE ---
transferred to 2119 via bed accomp by self
[2024-01-21 22:10] LABS: Glucose - Point of Care 172 mg/dl (70-99)
[2024-01-21] MEDS: LANTUS 0.200000000000000011 UNITS SC (22:30)
[2024-01-22] VITALS (11 sets, daily range): BP systolic 117–134; BP diastolic 60–77; BMI 33.2
[2024-01-22] MEDS: TORADOL 15 MG IV ×2 (02:05→13:32)
[2024-01-22] MEDS: TYLENOL 1000 MG PO ×3 (03:45→21:26)
[2024-01-22] MEDS: MERREM 500 MG IV (03:45)
[2024-01-22] MEDS: STERILE WATER FOR INJECTION 10 ML IV (03:45)
--- NOTE | 2024-01-22 05:24 | DOWNTIME ---
There was a [employer] Client Housing Inspector Downtime on 01/22/2024 from 0100 to 01/22/2024 at 0439. Downtime documentation of patient's care, including medication administrations, has been reconciled in the electronic record per guidelines. Refer to the
patient's paper chart under the miscellaneous tab to see printed paper medication records and downtime forms.
[2024-01-22] MEDS: VANCOCIN 300 ML IV (05:27)
[2024-01-22] MEDS: VANCOCIN 300 MG IV (05:27)
[2024-01-22 06:09] LABS: Glucose - Point of Care 130 mg/dl (70-99)
[2024-01-22 06:48] LABS: Hematocrit 35.6 % (39.0-52.0); Hemoglobin 12.1 g/dL (13.0-18.0); Mean Corpuscular Hgb 28.5 pg (27.0-31.0); Mean Corpuscular Volume 83.8 fL (80.0-94.0); Mean Platelet Volume 10.2 fL (7.4-10.4); Nucleated Red Blood Cells % 0 % (-); Platelet Count 305 10^3/uL (130-400); Red Blood Cell Count 4.25 10^6/uL (4.70-6.10); Red Cell Dist. Width 14.2 % (11.5-14.5); White Blood Cell Count 15.5 10^3/uL (4.8-10.8)
[2024-01-22 07:08] LABS: Blood Urea Nitrogen 17 mg/dl (9-20); Calcium 7.7 mg/dl (8.4-10.2); Carbon Dioxide 25 mmol/L (22-30); Chloride 101 mmol/L (98-107); Estimated Creatinine Clearance > 125 ml/min; Glucose 126 mg/dl (70-99); Potassium 3.6 mmol/L (3.5-5.1); Sodium 133 mmol/L (135-145); eGFR > 60.00
--- NOTE | 2024-01-22 07:24 | PN.DE.MGMTRT ---
Insulin Management
- -
01/22/2024: Diabetes Management Consult Follow up:
Patient admitted on 01/16 with a Gluteal abscess. Glucose on admission was 518, A1C 14.2%, initiated on glycemic protocol. 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
Patient just returned from OR for further surgery and debridement. Patient is awake, alert and oriented able to discuss diabetes management. Instructed patient on use of pre filled insulin pen and provided step by step instructions in print.
Nursing to allow patient to prep and inject insulin with supervision.
Patient received 20 units lantus @hs last evening, fasting glucose this AM 126 venous. 5 units novolog ordered AC with corrective insulin. Will follow glucose for further needed adjustment. Will provide instruction for glucose monitor tomorrow.
Diabetes History
- -
Type of Diabetes: 2 requiring insulin
Pre-Admission Diabetes Regimen
01/22/24
06:14
Creatinine 0.5 L
Lab Results
Hemoglobin A1c 14.2 % (4.0-5.6) H 01/18/24 04:18
Insulin Pump Settings
IP Diabetes Regimen
01/21/24 01/21/24 01/21/24
08:47 10:44 13:37
Glucose
POC Glucose 90 97 122 H
01/21/24 01/21/24 01/22/24
16:35 22:08 06:07
Glucose
POC Glucose 96 172 H 130 H
01/22/24
06:14
Glucose 126 H
POC Glucose
Patient Education
[2024-01-22 07:51] LABS: Absolute Neutrophils -Man Diff 11.4 10^3/uL (1.4-6.5); Anisocytosis Slight; Band Neutrophils 3 % (0-3); Eosinophils 4 % (0-6); Hypochromasia Slight; Lymphocytes 12 % (20-51); Metamyelocytes 1 % (-); Monocytes 6 % (2-9); Myelocytes 3 % (-); Normal RBC Morphology No; Platelets Checked Yes; Polychromasia Slight; Segmented Neutrophils 71 % (42-75); Total Cells Counted 100
[2024-01-22] MEDS: NOVOLOG FLEXPEN SC (07:52)
[2024-01-22] MEDS: TORADOL IV (08:30)
[2024-01-22] MEDS: GLUCOPHAGE PO (08:30)
--- NOTE | 2024-01-22 09:07 | PHA.VAN.FU ---
Vancomycin Assessment / Plan
- Assessment
Renal Function: Stable
WBC's are: Trending Down
In the past 24 hrs, patient has been: Afebrile
Concomitant Antimicrobials: meropenem
- Dosing Plan
Continue: Vanc 1500mg Q12H (adjusted 01/20)
- Monitoring Plan
No level(s) ordered at this time: consider repeat levels in next several days
- Follow Up
Pharmacy will continue to follow.
Vancomycin Follow UP
- -
Patient Age: 63
Patient Sex: Male
Vancomycin Day #: 6
Indication: Skin And Soft Tissue
Requesting Provider: Dr. Reardon / Jennifer
Pertinent Antimicrobial Allergies:
No antibiotic allergies
Height / Weight:
Height 6 ft 1 in
Actual Weight 114.1 kg
IBW in k.9
Adjusted BW in k
Pertinent Past Medical History: DM, BMI ~31
- Vital Signs / Lab Results
Temp Pulse Resp BP Pulse Ox
97.7 F 88 17 128/68 95
01/22/24 07:17 01/22/24 07:17 01/22/24 07:17 01/22/24 07:17 01/22/24 07:17
Lab Results - Hematology
01/20/24 01/21/24 01/22/24
03:55 03:04 06:14
WBC 17.8 H 20.1 H 15.5 H
Band Neutrophils 3 D
Lab Results - Chemistry
01/19/24 01/19/24 01/20/24
12:41 19:22 02:00
BUN Cancelled 35 H Cancelled
Creatinine Cancelled 0.7 Cancelled
Estimated Creat Clear Cancelled > 125 Cancelled
01/20/24 01/20/24 01/21/24
03:55 12:25 03:04
BUN 29 H 23 H 20
Creatinine 0.6 L 0.6 L 0.6 L
Estimated Creat Clear > 125 > 125 > 125
01/22/24
06:14
BUN 17
Creatinine 0.5 L
Estimated Creat Clear > 125
Microbiology Results
01/19/24 16:19 Tissue Culture - Preliminary
Perineum Gram negative bacilli
Streptococcus species
Gram Stain - Preliminary
01/17/24 14:39 Blood Culture - Preliminary
Blood/Venous No Growth in 4 days- Final report to follow
01/17/24 14:39 Blood Culture - Preliminary
Blood/Venous No Growth in 4 days- Final report to follow
01/17/24 17:17 Anaerobic Culture - Preliminary
Abscess Culture pending. Anaerobic cultures are examined after 3
days incubation. Additional information to follow.
Therapeutic Drug Monitoring
Vancomycin Peak 19.8 ug/ml (18-26) 01/20/24 20:56
Vancomycin Trough 13.2 ug/ml (5-20) 01/21/24 03:04
--- NOTE | 2024-01-22 09:15 | CM ---
Reviewed the chart notes. Patient is NPO in anticipation of undergoing EUA today. CM continues to be available to patient/family and is monitoring medical plan for needs at discharge.
Plan: Discharge plans will depend on the patient's progress.
--- NOTE | 2024-01-22 09:22 | W.PN.HOSP.TC ---
Today's Communication/Plan
-
continue Abx per ID
continue post-op care per colorectal
continue SC insulin; appreciate FIELD CLERK help
resume diet
Laxatives on a prn basis
Assessment / Plan
Assessment / Plan
Assessment:
Sepsis POA (leucocytosis, tachycardia)
Gluteal abscess
- CT: Symmetric skin thickening and rather extensive inflammatory stranding seen within the buttocks along the gluteal clefts with extensive subcutaneous emphysema with gas extending inferiorly into the perineum. No discrete or drainable fluid
collections appreciated. Findings concerning for extensive soft tissue infection, necrotizing fasciitis/Shilpa gangrene.
- s/p Flexible sigmoidoscopy, exam under anesthesia, incision and drainage of left gluteal abscess, extensive debridement of necrotic tissue, pulse irrigation on 01/17
- s/p Exam under anesthesia, excision and debridement of necrotic tissue of the perineum on 01/18
- s/p excision and debridement of necrotic tissue 01/19
- s/p Flexible sigmoidoscopy, debridement of perineal wound. no pus, just fibrinous exudate 01/21
- follow Surgery recs
- continue IVF
- continue Vanco/Merrem day 4. follow cultures (so far growing E. Coli, Strep)
- completed 3 days of linezolid
- ID following
- pain control
Hyponatremia, pseudohyponatremia from Hypoglycemia
HHNK
- weaned off critical care insulin drip protocol
- continue SC insulin
- A1c is 14
- FIELD CLERK and educator following
Hx of cochlear implants
Hypokalemia - replete prn
DVT ppx: SCDs
Code: Full
Anticipated Discharge: > 48 hours
Subjective/Interval History
-
Date of Service: January 22, 2024
late entry
seen prior to repeat OR around 830 AM
no complaints at the time
Objective Data
-
Labs:
Laboratory Results
01/22/24
06:14
WBC 15.5 H
Hgb 12.1 L
Hct 35.6 L
Plt Count 305
Sodium 133 L
Potassium 3.6
Chloride 101
Carbon Dioxide 25
BUN 17
Creatinine 0.5 L
Glucose 126 H
Calcium 7.7 L
Vital Signs:
Vital Signs
Temp Pulse Resp BP Pulse Ox
97.7 F 88 17 128/68 95
01/22/24 07:17 01/22/24 07:17 01/22/24 07:17 01/22/24 07:17 01/22/24 07:17
I&O
01/21/24 01/22/24 01/23/24
06:59 06:59 06:59
Intake Total 2865.5 / 2966.1 3254.2 / 3254.2
Output Total 2125 / 2125 3355 / 3355
Balance 740.5 / 841.1 -100.8 / -100.8
Physical Exam
-
General: No Apparent Distress
HEENT: Normocephalic and Atraumatic
Respiratory: Clear to Auscultation; Negative Wheezes or Rales
Cardiac: Regular Rhythm and S1/S2
GI: Soft and Nontender
Musculoskeletal: No Edema
Neuro: AO x 3
Psych: Calm
Data Reviewed
-
Total Time Spent with Patient (in minutes): 42
Labs: Labs Reviewed by me
--- NOTE | 2024-01-22 10:53 | W.IMMPOSTOP ---
Surgical Immed Post Op Note
-
Primary Surgeon: Daniel Jones MD
Assisting Surgeon: None
Pre-op Diagnosis: Necrotizing soft tissue infection of the perineum
Post-op Diagnosis: Same
Procedure Performed: Flexible sigmoidoscopy, debridement of perineal wound
Anesthesia Type: General
Specimen / Cultures: None
Estimated Blood Loss: 5 mL
Complications: None
Operative Findings: Posterior and anterior wound without necrotic tissue or purulent drainage; posterior wound contaminated with some liquid stool; on flexible sigmoidoscopy copious liquid stool in the rectum, 80% of the circumference was cleared
and mucosa appeared healthy without signs of ischemia; debrided minimal amount of fibrinous exudate from the anterior and posterior wound; placed 1/2 inch Bam through the subcutaneous tunnel on the right; packed with Betadine soaked Kerlix and
dressed with ABD pads and mesh underwear
--- NOTE | 2024-01-22 11:01 | OR.RPT ---
Operative Report
Operative Report
DATE OF OPERATION: 01/22/2024
SURGEON: Daniel Jones MD
PREOPERATIVE DIAGNOSIS: Necrotizing soft tissue infection of the perineum
POSTOPERATIVE DIAGNOSIS: Same
OPERATION: Flexible sigmoidoscopy, exam under anesthesia, debridement of perineal wound, pulse irrigation
ASSISTANTS:
1. none
ANESTHESIA: General anesthesia
ESTIMATED BLOOD LOSS: 5 mL
FINDINGS:
1. Liquid stool had contaminated the posterior wound; liquid stool found in the rectum which was suctioned; of the visible rectal mucosa, about 80% of the circumference, the mucosa was healthy without evidence of ischemia, injury or inflammation
2. Anterior perineal wound with small amount of fibrinous exudate, no necrotic tissue or purulent drainage; fibrinous exudate debrided
3. Posterior perineal wound with small amount of fibrinous exudate, no necrotic tissue or purulent drainage; fibrinous exudate debrided
4. 0.5 inch Winner drain placed in the right subcutaneous tunnel between the anterior and posterior wounds
SPECIMENS:
1. None
DRAINS: 0.5 inch Winner in the right subcutaneous peritoneal tunnel
COMPLICATIONS: None
INDICATIONS: The patient is a 63-year-old male who presented with 7 days of a worsening left gluteal pustule was found to be hyperglycemic with a WBC of 24 and subcutaneous emphysema tracking in the posterior perineum. He has undergone 3
debridements of necrotizing soft tissue infection of the peritoneum. Overall, he is doing well clinically. As there was persistent necrotic tissue with purulent drainage on the last debridement, I recommended a repeat exam under anesthesia with
flexible sigmoidoscopy and possible debridement today. The operation was discussed with the patient in detail, including the risks, benefits and alternatives. Risks described included, but not limited to, bleeding, infection, damage to nearby
structures (such as the anal sphincters, nerves, blood vessels, rectum, testicles, scrotum), risk of fecal incontinence, repeated procedures for infection control, possible ostomy if involvement of the anorectum discovered and anesthetic risks. The
patient understood and agreed to proceed. The consent was signed and placed in the chart.
PROCEDURE IN DETAIL: The patient was taken to the operating room and placed in high lithotomy position. A Brandt was already in place. SCDs were placed bilaterally. Both arms were secured to the arm boards in slightly extended position. General
anesthesia was induced and the patient was intubated without complication. A timeout was performed verifying the correct patient, procedure, operative site, positioning and special equipment. I performed a flexible sigmoidoscopy. I first performed
a digital rectal exam, which expressed liquid stool. There was a mild amount of stool contamination in the posterior wound. There were no palpable masses, no gross blood and no evidence of fluctuance along the anal canal. The sigmoidoscope was
then inserted transanally and advanced to about 12 cm. There was copious liquid stool within the rectal vault, which I suctioned. I was able to clear up about 80% of the circumference of the rectum, which appeared healthy without ischemia, injury
or inflammation. The sigmoidoscope was then removed. The perineum including both perineal wounds were prepped with Betadine and draped in sterile fashion.
The perineal blanching erythema had resolved. I first evaluated the anterior wound. There was no further necrotic tissue or purulent drainage noted. There was some fibrinous exudate in the right superior aspect as well as the bilateral
subcutaneous tunnels. This was debrided sharply with Metzenbaum scissors. Hemostasis was achieved with electrocautery. No involvement of the scrotum was noted.
I evaluated the posterior wound. There was no further necrotic tissue or purulent drainage noted. There was some fibrinous exudate in the right inferior aspect as well as the bilateral tunnels. This was debrided sharply with Metzenbaum scissors.
Hemostasis was achieved with electrocautery. The skin edges were healthy and the skin overlying the subcutaneous tunnels was healthy. The right subcutaneous tunnel extended about 8-9 cm. My partner, Dr. Finley, came into the room and evaluated
the wound as well. He agreed that it appeared healthy and no further debridement was necessary. I placed a 0.5 inch Winner drain through the right-sided tunnel and secured to itself with two 3-0 nylon sutures. The left subcutaneous tunnel was
only about 4 to 5 cm in length. Both anterior and posterior wounds were pulse lavaged for about 5 minutes total. The wound was closely evaluated for any further necrotic or fibrinous tissue and hemostasis was assured. The wound was then packed
with one 3 inch kerlix that was soaked in Betadine.
At this point, the procedure was complete. All needle, sponge and instrument counts were correct. The patient tolerated the procedure well and was transferred to the recovery room in stable condition with gauze dressing in place secured with mesh
underwear.
DICTATED BY: Daniel Jones MD
[2024-01-22] MEDS: DILAUDID 0.5 MG IV ×2 (11:04→11:16)
[2024-01-22 11:06] LABS: Glucose - Point of Care 128 mg/dl (70-99)
[2024-01-22] MEDS: NSS 1000 IV (11:41)
[2024-01-22] MEDS: MERREM IV (12:01)
[2024-01-22] MEDS: STERILE WATER FOR INJECTION IV (12:02)
[2024-01-22] MEDS: TYLENOL PO (12:02)
[2024-01-22 12:15] LABS: Glucose - Point of Care 149 mg/dl (70-99)
[2024-01-22] MEDS: NOVOLOG FLEXPEN-LOW RESISTANCE SC (12:22)
[2024-01-22] MEDS: NOVOLOG FLEXPEN 5 UNITS SC ×2 (12:28→16:50)
--- NOTE | 2024-01-22 15:32 | W.PN.ID1 ---
Date of Service
Date of Service: January 22, 2024
Today's Communication
- deescalate to unasyn; stop vancomycin/meropenem
Assessment / Plan
Necrotizing Fasciitis
Newly Diagnosed Dm2
- blood cultures no growth to date
- wound cultures from OR notable for GBS and susceptible e coli
- deescalate to unasyn; stop vancomycin/meropenem
- follow clinically
Chief Complaint
-: Other (necrotizing fasciitis)
Subjective / Review of Systems
afebrile
bp stable
declining leukocytosis
cr stable
OR findings 'Liquid stool had contaminated the posterior wound; liquid stool found in the rectum which was suctioned; of the visible rectal mucosa, about 80% of the circumference, the mucosa was healthy without evidence of ischemia, injury or
inflammation'
Vital Signs / Physical Exam
Vital Signs
Vital Signs
Temp Pulse Resp BP Pulse Ox
98.5 F 85 18 133/69 94
01/22/24 13:21 01/22/24 13:21 01/22/24 13:21 01/22/24 13:21 01/22/24 13:21
Physical Exam
Constitutional: No Acute Distress
Cardiovascular: Regular Rate and S1/S2; Negative Murmur or Rub
Pulmonary: Clear and Symmetric; Negative Wheezes or Rales
Gastrointestinal: Soft, Non Tender, Non Distended and Normal Bowel Sounds
Genito-Urinary: Other (deferred drssing take down)
Skin: Warm and Dry; Negative Rash or Jaundice
Objective Data
Lab Data
Lab Results
01/22/24 06:14
01/22/24 06:14
ESR Cancelled 01/17/24 12:52
PT 16.8 Sec (11.4-14.6) H 01/17/24 19:14
INR 1.38 01/17/24 19:14
APTT 31.3 Sec (23.4-35.0) 01/17/24 19:14
Estimated Creat Clear > 125 ml/min 01/22/24 06:14
Total Bilirubin 0.8 mg/dl (0.2-1.3) 01/17/24 12:10
AST 27 U/L (17-59) 01/17/24 12:10
ALT 33 U/L (0-50) 01/17/24 12:10
Alkaline Phosphatase 215 U/L (38-126) H 01/17/24 12:10
C-Reactive Protein Cancelled 01/17/24 12:52
Most recent labs reviewed.
Micro Results:
01/17/24 14:39 Blood Culture - Final
Blood/Venous No Growth - Final Report
01/17/24 14:39 Blood Culture - Final
Blood/Venous No Growth - Final Report
01/17/24 17:17 Wound Culture - Final
Abscess Escherichia coli
Streptococcus agalactiae
Gram Stain - Final
01/17/24 17:17 Anaerobic Culture - Final
Abscess
01/19/24 16:19 Tissue Culture - Final
Perineum Escherichia coli
Streptococcus species
Gram Stain - Final
01/17/24 12:10 Wound Culture - Final
Abscess Escherichia coli
Streptococcus agalactiae
Gram Stain - Final
01/18/24 04:37 MRSA Screen - Final
Nose No Methicillin Resistant Staphylococcus aureus isolated.
[2024-01-22] MEDS: GLUCOPHAGE 500 MG PO (16:21)
[2024-01-22 16:46] LABS: Glucose - Point of Care 243 mg/dl (70-99)
[2024-01-22] MEDS: NOVOLOG FLEXPEN-LOW RESISTANCE 2 UNITS SC (16:50)
[2024-01-22] MEDS: UNASYN IV ×2 (16:50→21:19)
[2024-01-22] MEDS: LOVENOX 40 MG SC (17:00)
[2024-01-22 21:05] LABS: Glucose - Point of Care 195 mg/dl (70-99)
[2024-01-22] MEDS: LANTUS 0.200000000000000011 UNITS SC (21:20)
[2024-01-23] MEDS: UNASYN IV ×4 (03:22→21:57)
[2024-01-23] MEDS: TYLENOL 1000 MG PO ×4 (03:22→21:57)
[2024-01-23 03:40] VITALS: BP 137/64
[2024-01-23 04:57] LABS: Hematocrit 33.5 % (39.0-52.0); Hemoglobin 11.7 g/dL (13.0-18.0); Mean Corp Hgb Conc. 34.9 g/dL (33.0-37.0); Mean Corpuscular Hgb 28.8 pg (27.0-31.0); Mean Corpuscular Volume 82.5 fL (80.0-94.0); Mean Platelet Volume 9.9 fL (7.4-10.4); Nucleated Red Blood Cells % 0 % (-); Platelet Count 305 10^3/uL (130-400); Red Blood Cell Count 4.06 10^6/uL (4.70-6.10); White Blood Cell Count 15.3 10^3/uL (4.8-10.8)
[2024-01-23 05:18] LABS: Blood Urea Nitrogen 18 mg/dl (9-20); Calcium 7.8 mg/dl (8.4-10.2); Carbon Dioxide 29 mmol/L (22-30); Chloride 99 mmol/L (98-107); Estimated Creatinine Clearance > 125 ml/min; Glucose 138 mg/dl (70-99); Potassium 3.3 mmol/L (3.5-5.1); Sodium 133 mmol/L (135-145); eGFR > 60.00
[2024-01-23 07:04] LABS: Absolute Neutrophils -Man Diff 11.3 10^3/uL (1.4-6.5); Anisocytosis Slight; Band Neutrophils 6 % (0-3); Eosinophils 1 % (0-6); Hypochromasia Slight; Lymphocytes 15 % (20-51); Monocytes 7 % (2-9); Myelocytes 3 % (-); Normal RBC Morphology No; Platelets Checked Yes; Polychromasia Slight; Segmented Neutrophils 68 % (42-75); Total Cells Counted 100
[2024-01-23 07:12] VITALS: BP 138/70
[2024-01-23 07:59] LABS: Glucose - Point of Care 164 mg/dl (70-99)
--- NOTE | 2024-01-23 08:34 | PN.DE.MGMTRT ---
Insulin Management
- -
01/23/2024: Diabetes Management Consult Follow up:
Patient admitted on 01/16 with a Gluteal abscess. Glucose on admission was 518, A1C 14.2%, initiated on glycemic protocol. 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
Patient is awake alert and oriented, resting in side lying position. He does not want to have instructions on glucose monitor today. (just had wound repacked).
Yesterday instructed patient on use of pre filled insulin pen and provided step by step instructions in print. Nursing to allow patient to prep and inject insulin with supervision. Patient reports he has not given any injections .
Patient received 20 units lantus @[facility] last evening, fasting glucose this AM 138 venous, will make no change to lantus. 5 units novolog given AC did require corrective insulin. Will increase AC novolog to 7 units with low corrective. Will provide
instruction for glucose monitor when patient more amenable.
Diabetes History
- -
Type of Diabetes: 2 requiring insulin
Pre-Admission Diabetes Regimen
01/23/24
04:42
Creatinine 0.5 L
Lab Results
Hemoglobin A1c 14.2 % (4.0-5.6) H 01/18/24 04:18
Insulin Pump Settings
IP Diabetes Regimen
01/22/24 01/22/24 01/22/24
11:05 12:13 16:45
Glucose
POC Glucose 128 H 149 H 243 H
01/22/24 01/23/24 01/23/24
21:04 04:42 07:57
Glucose 138 H
POC Glucose 195 H 164 H
Meal type: Breakfast
Patient Education
[2024-01-23] MEDS: DILAUDID 1 MG IV (08:37)
[2024-01-23] MEDS: FLUSH (NSS) 2 FLUSH IV ×3 (08:38→16:52)
--- NOTE | 2024-01-23 08:43 | PTCARENOTE ---
pt assisted to bathroom this am. gait steady. previous dressing removed and pt had a large loose brown BM in toilet. area cleansed with NSS and pt assisted to return to bed. Dr Jones at bedside. IV Dilaudid provided per MAR for wound repacking.
will observe.
--- NOTE | 2024-01-23 08:50 | W.PN.CRS1 ---
Today's Communication / Plan
-
Wound clean, change to daily packing and PRN
Monitor for 3-4 days prior to deciding if ostomy is necessary
Assessment/Plan
-
63-year-old male with PMH of deafness s/p cochlear implants, previous neck abscesses who presents for increasing pain in the left buttock x 1 week; 2 to 3 days ago, the abscess opened and started draining; he went to an urgent care today, who sent
him to the ED; WBC 24, glucose 518, creatinine 1.0, Hb 14, afebrile but tachycardic to 120s, CT showing concern for Shilpa's
POD 6 flex sig (anorectal mucosa healthy), I&D and debridement of posterior perineum, sent cultures
POD 4 debridement of perineal wound, opening of anterior perineum near (but not involving) base of scrotum; cultures sent
POD 3 flex sig (anorectal mucosa healthy), further perineal wound debridement
POD 1 flex sig (anorectal mucosa helathy), no further debridement, wound clean
�Appreciate hospitalist
� Okay for diabetic diet
� Continue broad-spectrum IV antibiotics; follow-up cultures; appreciate ID
-OR Cx 01/16 - ecoli and strep agalactiae, OR Cx 01/18 - GNR
� Pain control
- Undiagnosed diabetes, cont insulin mgmt per primary
� S/p ostomy marking; appreciate wound care
-Daily WTD packing with kerlix (and PRN for stool contamination or saturation)
-May need diverting ostomy, but ostomy creation has many risks; currently has sensation and continence;
-will monitor for wound care/stool contamination for next 3-4 days before determining if ostomy is necessary
Subjective Data
Procedure
01/19/2024- Exam under anesthesia, excision and debridement of necrotic tissue of the perineum
01/17/2024- Flexible sigmoidoscopy, exam under anesthesia, incision and drainage of left gluteal abscess, extensive debridement of necrotic tissue, pulse irrigation
Subjective Data
Date of Service: January 23, 2024
Had a BM overnight that was mostly loose with some solid. Per the nurse, the packing from yesterday was saturated with blood and was changed.
Pain controlled.
Denies nausea/vomiting. Tolerating diet.
+BMs + Brandt
Pt is OOB.
Objective Data
-
Vital Signs
Temp Pulse Resp BP Pulse Ox
98.1 F 76 16 138/70 95
01/23/24 07:12 01/23/24 07:12 01/23/24 07:12 01/23/24 07:12 01/23/24 07:12
Intake & Output
01/22/24 01/23/24 01/24/24
06:59 06:59 06:59
Intake Total 3254.2 / 3254.2 1780 / 1780
Output Total 3355 / 3355 2635 / 2635
Balance -100.8 / -100.8 -855 / -855
Intake:
Oral fluids 830 / 830 1440 / 1440
IV fluids (Total) 2404.2 / 2404.2 100 / 100
Insulin 4.2 / 4.2
Nss 1,000 ml @ 100 mls/hr IV . 1200 / 1200
Q10H DOROTHY Rx#:[id number]
normosol 100 / 100
IV piggybacks 20 / 20 240 / 240
Output:
Urine, Brandt 1405 / 1405 1825 / 1825
Urine, Voided 1949 / 1949 810 / 810
Lab Results
01/23/24 04:42
01/23/24 04:42
Physical Exam
-
General: No Acute Distress and AOx3
HEENT: Grossly Normal
Abdomen: Soft, Non Distended, Non Tender, No Guarding and No Rebound
Rectal: Other (Anterior and posterior wound clean with evidence of granulation, no purulent drainage or feculent contamination; mild amount of blood clot in the posterior wound that was wiped away with gauze; wounds repacked with WTD kerlix)
Wound: No Signs of Infection and Dressing Changed
[2024-01-23] MEDS: GLUCOPHAGE 500 MG PO ×2 (09:22→18:03)
[2024-01-23] MEDS: TRANEXAMIC ACID 100 IV (09:22)
[2024-01-23] MEDS: NOVOLOG FLEXPEN-LOW RESISTANCE 1 UNITS SC (09:24)
[2024-01-23] MEDS: NOVOLOG FLEXPEN 7 UNITS SC ×3 (09:37→18:04)
[2024-01-23] MEDS: NOVOLOG FLEXPEN SC (09:37)
--- NOTE | 2024-01-23 10:14 | CM ---
Reviewed the chart notes. Per notes, plan is to monitor for 3-4 days prior to deciding if ostomy is necessary. Diabetic diet. CM continues to be available to patient/family and is monitoring medical plan for needs at discharge.
Plan: Discharge plans will depend on the patient's progress.
[2024-01-23 11:35] VITALS: BP 120/63
[2024-01-23] MEDS: KCL 40 MEQ PO (11:53)
[2024-01-23 12:04] LABS: Glucose - Point of Care 130 mg/dl (70-99)
[2024-01-23 12:20] LABS: Magnesium 2.2 mg/dl (1.6-2.3)
--- NOTE | 2024-01-23 12:22 | W.PN.HOSP.TC ---
Today's Communication/Plan
-
Continue antibiotics
Monitor glucoses
Fluid restriction
Assessment / Plan
Assessment / Plan
Gen-AAOx3, NAD, obese
HEENT-NC, AT, anicteric, clear oral mm
Neck-supple
CV-reg, no M, +S1/S2
Lungs-clear B/L
Abd-soft, NT, ND
Ext-no edema
Musculoskeletal-no cyanosis, clubbing
Skin-warm and dry
Neuro-grossly non-focal
Psych-calm, cooperative
Sepsis due to necrotizing fasciitis of perineum/left gluteal abscess -improving, and white blood cell count coming down, afebrile. Blood cultures negative. Wound cultures noted. IV Unasyn per ID.
Left gluteal abscess drained in the operating room on January 16. Extensive debridement of necrotic tissue and pulse irrigation performed.
Returned to the OR January 19 for further debridement of perennial wound and digital disimpaction, flexible sigmoidoscopy.
Returned to the OR January 21 for flexible sigmoidoscopy, examined under anesthesia, debridement of perennial wound, pulse irrigation.
Hyponatremia -sodium stable at 133. Glucose 138 this morning. 48 ounce fluid restriction ordered.
New Dx DM2 with hyperglycemia - HgbA1c 14.2%. He has not been to the primary care doctor in 7 years. Not on home medications. Continue basal bolus insulin. Glucose is improving.
Diabetes [employer] managing.
Hx of cochlear implants
Hypokalemia - 3.3 today, Mg 2.2. Replete orally.
Obesity due to excess calories
DVT ppx: SCDs
Full code
Anticipated Discharge: > 48 hours
Subjective/Interval History
-
Date of Service: January 23, 2024
Patient seen/examined. No complaints.
Objective Data
-
Labs:
Laboratory Results
01/23/24
04:42
WBC 15.3 H
Hgb 11.7 L
Hct 33.5 L
Plt Count 305
Sodium 133 L
Potassium 3.3 L
Chloride 99
Carbon Dioxide 29
BUN 18
Creatinine 0.5 L
Glucose 138 H
Calcium 7.8 L
Vital Signs:
Vital Signs
Temp Pulse Resp BP Pulse Ox
98 F 71 19 120/63 95
01/23/24 11:35 01/23/24 11:35 01/23/24 11:35 01/23/24 11:35 01/23/24 11:35
I&O
01/22/24 01/23/24 01/24/24
06:59 06:59 06:59
Intake Total 3254.2 / 3254.2 1780 / 1780
Output Total 3355 / 3355 2635 / 2635 200 / 200
Balance -100.8 / -100.8 -855 / -855 -200 / -200
Review of Systems
-
History Source: Patient
All other systems: Reviewed and negative
[2024-01-23] MEDS: NOVOLOG FLEXPEN-LOW RESISTANCE SC (15:00)
[2024-01-23 15:01] VITALS: BP 133/63
[2024-01-23 17:03] LABS: Glucose - Point of Care 200 mg/dl (70-99)
--- NOTE | 2024-01-23 17:03 | W.PN.ID1 ---
Date of Service
Date of Service: January 23, 2024
Today's Communication
- continue unasyn
- stool contaminated the wound today - ongoing evaluation to determine if ostomy needed; would be in support if surgical team decides to pursue this procedure
when approaching discharge can likely transition to augmentin would complete 14 days of therapy 01/16-01/30
Assessment / Plan
Necrotizing Fasciitis
Newly Diagnosed Dm2
- wound cultures from OR notable for GBS and susceptible e coli
- continue unasyn day 7 of rx
- when approaching discharge can likely transition to augmentin would complete 14 days of therapy 01/16-01/30
- stool contaminated the wound today - ongoing evaluation to determine if ostomy needed; would be in support if surgical team decides to pursue this procedure
- will need assisted, aggressive DM2 control
- follow clinically
Chief Complaint
-: Other (necrotizing fasciitis)
Subjective / Review of Systems
afebrile
bp stable
declining leukocytosis
stool contaminated the wound today - ongoing evaluation to determine if ostomy needed
Vital Signs / Physical Exam
Vital Signs
Vital Signs
Temp Pulse Resp BP Pulse Ox
98.4 F 84 18 133/63 95
01/23/24 15:01 01/23/24 15:01 01/23/24 15:01 01/23/24 15:01 01/23/24 15:01
Physical Exam
Constitutional: No Acute Distress
Cardiovascular: Regular Rate
Pulmonary: Symmetric and Non Labored
Gastrointestinal: Non Distended
Neurological: Awake
Psychological: Calm
Objective Data
Lab Data
Lab Results
01/23/24 04:42
01/23/24 04:42
ESR Cancelled 01/17/24 12:52
PT 16.8 Sec (11.4-14.6) H 01/17/24 19:14
INR 1.38 01/17/24 19:14
APTT 31.3 Sec (23.4-35.0) 01/17/24 19:14
Estimated Creat Clear > 125 ml/min 01/23/24 04:42
Total Bilirubin 0.8 mg/dl (0.2-1.3) 01/17/24 12:10
AST 27 U/L (17-59) 01/17/24 12:10
ALT 33 U/L (0-50) 01/17/24 12:10
Alkaline Phosphatase 215 U/L (38-126) H 01/17/24 12:10
C-Reactive Protein Cancelled 01/17/24 12:52
Most recent labs reviewed.
Micro Results:
01/17/24 14:39 Blood Culture - Final
Blood/Venous No Growth - Final Report
01/17/24 14:39 Blood Culture - Final
Blood/Venous No Growth - Final Report
01/17/24 17:17 Wound Culture - Final
Abscess Escherichia coli
Streptococcus agalactiae
Gram Stain - Final
01/17/24 17:17 Anaerobic Culture - Final
Abscess
01/19/24 16:19 Tissue Culture - Final
Perineum Escherichia coli
Streptococcus species
Gram Stain - Final
01/17/24 12:10 Wound Culture - Final
Abscess Escherichia coli
Streptococcus agalactiae
Gram Stain - Final
01/18/24 04:37 MRSA Screen - Final
Nose No Methicillin Resistant Staphylococcus aureus isolated.
[2024-01-23] MEDS: NOVOLOG FLEXPEN-LOW RESISTANCE 2 UNITS SC (18:04)
--- NOTE | 2024-01-23 18:46 | PTCARENOTE ---
pt self administered his evening meal insulin this evening. pt demonstrated proper technique for preparing needle, priming and dose on insulin pen. pt then self administered insulin dose. will continue education and instruction.
[2024-01-23] MEDS: KCL 20 MEQ PO (20:01)
[2024-01-23 21:34] LABS: Glucose - Point of Care 178 mg/dl (70-99)
[2024-01-23] MEDS: LANTUS 0.200000000000000011 UNITS SC (21:57)
[2024-01-23 23:25] VITALS: BP 140/80
[2024-01-24] MEDS: UNASYN IV ×4 (04:29→22:23)
[2024-01-24] MEDS: FLUSH (NSS) 1 FLUSH IV (04:29)
[2024-01-24] MEDS: TYLENOL 1000 MG PO ×4 (04:29→22:23)
[2024-01-24 05:38] LABS: Hematocrit 33.4 % (39.0-52.0); Hemoglobin 11.5 g/dL (13.0-18.0); Mean Corp Hgb Conc. 34.4 g/dL (33.0-37.0); Mean Corpuscular Hgb 28.4 pg (27.0-31.0); Mean Corpuscular Volume 82.5 fL (80.0-94.0); Mean Platelet Volume 9.7 fL (7.4-10.4); Platelet Count 317 10^3/uL (130-400); Red Blood Cell Count 4.05 10^6/uL (4.70-6.10); Red Cell Dist. Width 13.8 % (11.5-14.5); White Blood Cell Count 13.9 10^3/uL (4.8-10.8)
[2024-01-24 06:07] LABS: Blood Urea Nitrogen 11 mg/dl (9-20); Carbon Dioxide 32 mmol/L (22-30); Chloride 102 mmol/L (98-107); Estimated Creatinine Clearance > 125 ml/min; Glucose 128 mg/dl (70-99); Potassium 3.7 mmol/L (3.5-5.1); Sodium 133 mmol/L (135-145); eGFR > 60.00
[2024-01-24 07:31] LABS: Glucose - Point of Care 148 mg/dl (70-99)
[2024-01-24 07:35] LABS: Absolute Neutrophils -Man Diff 10.4 10^3/uL (1.4-6.5); Band Neutrophils 9 % (0-3); Lymphocytes 13 % (20-51); Metamyelocytes 2 % (-); Monocytes 7 % (2-9); Myelocytes 3 % (-); Platelets Checked Yes; Segmented Neutrophils 66 % (42-75)
--- NOTE | 2024-01-24 07:35 | PN.DE.MGMTRT ---
Insulin Management
- -
01/24/2024: Diabetes Management F/U:
Patient admitted on 01/16 with a Gluteal abscess. Glucose on admission was 518, A1C 14.2%, initiated on glycemic protocol. 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
Patient is awake, A/Ox3, resting in bed in side lying position. He still does not want to have instructions on glucose monitor today, states, 'why don't we revisit that at a later date'.
Pt was provided step by step instructions in print on 01/21. He reports that he is now comfortable with insulin administration and that he has been receiving guidance from nursing staff since he was instructed on use of pre filled insulin pen.
Provided Nurse with additional needles for insulin adm.
Patient received 20 units Lantus @[facility] last evening, fasting glucose this AM 128 venous, will make no change to Lantus dose.
NovoLog AC dose was increased to 7 units, glucose improved, except for 1 elevated pre-dinner to 200.
Will make no changes to current AC insulin regimen: Cont NovoLog 7units AC with low corrective.
Will provide instruction for glucose monitor when patient more amenable, likely on Saturday.
Diabetes History
- -
Type of Diabetes: 2 requiring insulin
Pre-Admission Diabetes Regimen
01/24/24
05:19
Creatinine 0.5 L
Lab Results
Hemoglobin A1c 14.2 % (4.0-5.6) H 01/18/24 04:18
Insulin Pump Settings
IP Diabetes Regimen
01/23/24 01/23/24 01/23/24
07:57 12:03 17:01
Glucose
POC Glucose 164 H 130 H 200 H
01/23/24 01/24/24 01/24/24
21:33 05:19 07:30
Glucose 128 H
POC Glucose 178 H 148 H
Patient Education
[2024-01-24 07:36] LABS: Anisocytosis 1+; Hypochromasia Slight; Normal RBC Morphology No; Polychromasia Slight
[2024-01-24 07:37] LABS: Spherocytes 1+; Total Cells Counted 100
[2024-01-24 07:52] VITALS: BP 137/67
[2024-01-24] MEDS: GLUCOPHAGE 500 MG PO ×2 (08:17→17:29)
[2024-01-24] MEDS: KCL 20 MEQ PO ×2 (08:17→20:37)
[2024-01-24] MEDS: NOVOLOG FLEXPEN-LOW RESISTANCE SC (08:18)
[2024-01-24] MEDS: NOVOLOG FLEXPEN 7 UNITS SC ×3 (08:18→17:30)
[2024-01-24] MEDS: DILAUDID 1 MG IV (08:23)
[2024-01-24] MEDS: FLUSH (NSS) 2 FLUSH IV ×3 (08:24→16:26)
--- NOTE | 2024-01-24 09:01 | W.PN.CRS1 ---
Today's Communication / Plan
-
cont packing daily and PRN
avoid laxatives, allow stool to become solid prior to deciding if diverting ostomy is necessary; will consider if ostomy necessary likely on Saturday
Assessment/Plan
-
63-year-old male with PMH of deafness s/p cochlear implants, previous neck abscesses who presents for increasing pain in the left buttock x 1 week; 2 to 3 days ago, the abscess opened and started draining; he went to an urgent care today, who sent
him to the ED; WBC 24, glucose 518, creatinine 1.0, Hb 14, afebrile but tachycardic to 120s, CT showing concern for Shilpa's
POD 7 flex sig (anorectal mucosa healthy), I&D and debridement of posterior perineum, sent cultures
POD 5 debridement of perineal wound, opening of anterior perineum near (but not involving) base of scrotum; cultures sent
POD 4 flex sig (anorectal mucosa healthy), further perineal wound debridement
POD 2 flex sig (anorectal mucosa helathy), no further debridement, wound clean
�Appreciate hospitalist
� Okay for diabetic diet
� Continue broad-spectrum IV antibiotics; follow-up cultures; appreciate ID
-OR Cx 4/12 - ecoli and strep agalactiae, OR Cx 4/14 - GNR
� Pain control
- Undiagnosed diabetes, cont insulin mgmt per primary
� S/p ostomy marking; appreciate wound care
-Daily WTD packing with kerlix (and PRN for stool contamination or saturation)
-May need diverting ostomy, but ostomy creation has many risks; currently has sensation and continence;
-will monitor for wound care/stool contamination for next 3-4 days before determining if ostomy is necessary
Subjective Data
Subjective Data
Date of Service: January 24, 2024
No overnight events.
Pain controlled.
Denies nausea/vomiting. Tolerating diet.
+flatus +BMs (BMs are becoming more solid, but still having some liquid stools with wound contamination) +voiding
Pt is OOB.
Objective Data
-
Vital Signs
Temp Pulse Resp BP Pulse Ox
98.3 F 77 16 137/67 98
01/24/24 07:52 01/24/24 07:52 01/24/24 07:52 01/24/24 07:52 01/24/24 08:30
Intake & Output
01/23/24 01/24/24 01/25/24
06:59 06:59 06:59
Intake Total 1780 / 1780 1420 / 1420
Output Total 2635 / 2635 1050 / 1050
Balance -855 / -855 370 / 370
Intake:
Oral fluids 1440 / 1440 1080 / 1080
IV fluids (Total) 100 / 100
normosol 100 / 100
IV piggybacks 240 / 240 340 / 340
Output:
Urine, Brandt 1825 / 1825 700 / 700
Urine, Voided 810 / 810 350 / 350
Other:
Number of approximated MODERATE 1
amounts of urine
Number of approximated LARGE 1
amounts of urine
Lab Results
01/24/24 05:19
01/24/24 05:19
Physical Exam
-
General: No Acute Distress and AOx3
Abdomen: Soft, Non Distended and Non Tender
Rectal: Other (Anterior and posterior wound clean with evidence of granulation, minimal fibrinous exudate, no purulent drainage or feculent contamination this AM; blood clot mostly gone; wounds repacked with WTD kerlix)
Skin: Warm and Dry
Wound: No Signs of Infection and No Skin Erythema
--- NOTE | 2024-01-24 10:18 | W.PN.HOSP.TC ---
Today's Communication/Plan
-
Continue current care
Assessment / Plan
Assessment / Plan
Gen-AAOx3, NAD, obese
HEENT-NC, AT, anicteric, clear oral mm
Neck-supple
CV-reg, no M, +S1/S2
Lungs-clear B/L
Abd-soft, NT, ND
Ext-no edema
Musculoskeletal-no cyanosis, clubbing
Skin-warm and dry
Neuro-grossly non-focal
Psych-calm, cooperative
Sepsis due to necrotizing fasciitis of perineum/left gluteal abscess -improving, and white blood cell count coming down, afebrile. Blood cultures negative. Wound cultures noted. IV Unasyn per ID.
Left gluteal abscess drained in the operating room on January 16. Extensive debridement of necrotic tissue and pulse irrigation performed.
Returned to the OR January 19 for further debridement of perennial wound and digital disimpaction, flexible sigmoidoscopy.
Returned to the OR January 21 for flexible sigmoidoscopy, examined under anesthesia, debridement of perennial wound, pulse irrigation.
Colorectal surgery wants to wait until Saturday to decide if diverting ostomy is necessary.
Acute diarrhea -likely antibiotic associated. Doubt C. difficile colitis but can check if stools become pure water.
Hyponatremia -sodium stable at 133. 48 ounce fluid restriction ordered.
New Dx DM2 with hyperglycemia - HgbA1c 14.2%. He has not been to the primary care doctor in 7 years. Not on home medications. Continue basal bolus insulin. Glucose is improving.
Diabetes [employer] managing.
Hx of cochlear implants
Hypokalemia -improved.
Obesity due to excess calories
DVT ppx: SCDs
Full code
Anticipated Discharge: > 48 hours
Subjective/Interval History
-
Date of Service: January 24, 2024
Patient seen and examined. Complaining of loose stools.
Objective Data
-
Labs:
Laboratory Results
04/19/24
05:19
WBC 13.9 H
Hgb 11.5 L
Hct 33.4 L
Plt Count 317
Sodium 133 L
Potassium 3.7
Chloride 102
Carbon Dioxide 32 H
BUN 11
Creatinine 0.5 L
Glucose 128 H
Calcium 8.0 L
Vital Signs:
Vital Signs
Temp Pulse Resp BP Pulse Ox
98.3 F 77 16 137/67 98
01/24/24 07:52 01/24/24 07:52 01/24/24 07:52 01/24/24 07:52 01/24/24 08:30
I&O
01/23/24 01/24/24 01/25/24
06:59 06:59 06:59
Intake Total 1780 / 1780 1420 / 1420
Output Total 2635 / 2635 1050 / 1050
Balance -855 / -855 370 / 370
Review of Systems
-
History Source: Patient
All other systems: Reviewed and negative
--- NOTE | 2024-01-24 11:35 | W.PN.ID1 ---
Date of Service
Date of Service: January 24, 2024
Today's Communication
Continue Unasyn.
Assessment / Plan
Necrotizing Fasciitis
Newly Diagnosed DM2
- wound cultures from OR notable for GBS and susceptible e coli
- continue Unasyn day 8 of rx
- when approaching discharge can likely transition to Augmentin would complete 14 days of therapy 01/16-01/30
- stool contaminating the wound - ongoing evaluation to determine if ostomy needed; would be in support if surgical team decides to pursue this procedure
- will need fci, aggressive DM2 control
- follow clinically
Chief Complaint
-: Other (necrotizing fasciitis)
Subjective / Review of Systems
No pain. Stool still loose.
Vital Signs / Physical Exam
Vital Signs
Vital Signs
Temp Pulse Resp BP Pulse Ox
98.3 F 77 16 137/67 98
01/24/24 07:52 01/24/24 07:52 01/24/24 07:52 01/24/24 07:52 01/24/24 08:30
Physical Exam
Constitutional: No Acute Distress
Gastrointestinal: Soft, Non Tender and Non Distended
Neurological: AO x 3
Objective Data
Lab Data
Lab Results
01/24/24 05:19
01/24/24 05:19
ESR Cancelled 01/17/24 12:52
PT 16.8 Sec (11.4-14.6) H 01/17/24 19:14
INR 1.38 01/17/24 19:14
APTT 31.3 Sec (23.4-35.0) 01/17/24 19:14
Estimated Creat Clear > 125 ml/min 01/24/24 05:19
Total Bilirubin 0.8 mg/dl (0.2-1.3) 01/17/24 12:10
AST 27 U/L (17-59) 01/17/24 12:10
ALT 33 U/L (0-50) 01/17/24 12:10
Alkaline Phosphatase 215 U/L (38-126) H 01/17/24 12:10
C-Reactive Protein Cancelled 01/17/24 12:52
Most recent labs reviewed.
Micro Results:
01/17/24 14:39 Blood Culture - Final
Blood/Venous No Growth - Final Report
01/17/24 14:39 Blood Culture - Final
Blood/Venous No Growth - Final Report
01/17/24 17:17 Wound Culture - Final
Abscess Escherichia coli
Streptococcus agalactiae
Gram Stain - Final
01/17/24 17:17 Anaerobic Culture - Final
Abscess
01/19/24 16:19 Tissue Culture - Final
Perineum Escherichia coli
Streptococcus species
Gram Stain - Final
01/17/24 12:10 Wound Culture - Final
Abscess Escherichia coli
Streptococcus agalactiae
Gram Stain - Final
01/18/24 04:37 MRSA Screen - Final
Nose No Methicillin Resistant Staphylococcus aureus isolated.
[2024-01-24 11:39] LABS: Glucose - Point of Care 169 mg/dl (70-99)
[2024-01-24] MEDS: NOVOLOG FLEXPEN-LOW RESISTANCE 1 UNITS SC ×2 (11:46→17:31)
--- NOTE | 2024-01-24 13:12 | CM ---
Reviewed the chart notes. Patient will be here thorough weekend. Patient learning how to self administer insulin. CM continues to be available to patient/family and is monitoring medical plan for needs at discharge.
Plan: Discharge plans will depend on the patient's progress. Most likely VN will be needed.
[2024-01-24 14:33] VITALS: BP 111/60
[2024-01-24 17:21] LABS: Glucose - Point of Care 174 mg/dl (70-99)
[2024-01-24 21:30] LABS: Glucose - Point of Care 147 mg/dl (70-99)
[2024-01-24] MEDS: LANTUS 0.200000000000000011 UNITS SC (22:24)
[2024-01-24 23:35] VITALS: BP 132/72
[2024-01-25 04:18] LABS: % Basophils 0.6 % (0-2); % Eosinophils 2.2 % (0-6); % Immature Granulocytes 7.9 % (0-0.5); % Lymphocytes 19.1 % (20.5-51.1); % Monocytes 5.4 % (1.7-9.3); % Neutrophils 64.8 % (42.2-75.2); Absolute Basophils 0.1 10^3/uL (0-0.2); Absolute Eosinophils 0.3 10^3/uL (0-0.7); Absolute Immature Granulocytes 0.9 10^3/uL (0-0.05); Absolute Lymphocytes 2.2 10^3/uL (1.2-3.4); Absolute Monocytes 0.6 10^3/uL (0.1-0.6); Absolute Neutrophils 7.6 10^3/uL (1.4-6.5); Hematocrit 32.8 % (39.0-52.0); Hemoglobin 11.3 g/dL (13.0-18.0); Mean Corp Hgb Conc. 34.5 g/dL (33.0-37.0); Mean Corpuscular Hgb 28.5 pg (27.0-31.0); Mean Corpuscular Volume 82.8 fL (80.0-94.0); Mean Platelet Volume 9.7 fL (7.4-10.4); Nucleated Red Blood Cells % 0 % (-); Platelet Count 299 10^3/uL (130-400); Red Blood Cell Count 3.96 10^6/uL (4.70-6.10); Red Cell Dist. Width 13.9 % (11.5-14.5); White Blood Cell Count 11.7 10^3/uL (4.8-10.8)
[2024-01-25 04:40] LABS: Blood Urea Nitrogen 8 mg/dl (9-20); Calcium 8.2 mg/dl (8.4-10.2); Carbon Dioxide 32 mmol/L (22-30); Chloride 101 mmol/L (98-107); Estimated Creatinine Clearance > 125 ml/min; Glucose 130 mg/dl (70-99); Potassium 3.5 mmol/L (3.5-5.1); Sodium 134 mmol/L (135-145); eGFR > 60.00
[2024-01-25] MEDS: UNASYN IV ×4 (05:00→21:51)
[2024-01-25] MEDS: TYLENOL 1000 MG PO ×4 (05:00→21:50)
[2024-01-25 07:23] VITALS: BP 124/69
[2024-01-25 07:56] LABS: Glucose - Point of Care 120 mg/dl (70-99)
[2024-01-25] MEDS: GLUCOPHAGE 500 MG PO ×2 (08:36→16:54)
[2024-01-25] MEDS: NOVOLOG FLEXPEN 7 UNITS SC ×3 (08:36→17:36)
[2024-01-25] MEDS: KCL 20 MEQ PO ×2 (08:37→20:43)
[2024-01-25] MEDS: DILAUDID 1 MG IV (08:43)
[2024-01-25] MEDS: NOVOLOG FLEXPEN-LOW RESISTANCE SC ×3 (08:47→16:56)
--- NOTE | 2024-01-25 08:55 | W.PN.CRS1 ---
Addendum entered and electronically signed by Deonte Philippe MD 01/25/24 12:23:
Patient seen and examined. Agree with assessment plan as document above.
No new complaints. No worsening pain or fevers. Reports ability to control and sense when having a bowel movement. No episodes of incontinence.
Gen: NAD
Rectal: Dressing changed, no worsening erythema or pain, mild fibrinous debris in mor posterior wound, majority healthy tissue, no purulence or feculent contamination, [place] in place, more anterior wound with healthy tissue and minimal drainage,
no cont was using a wire amination
POD 9 flex sig (anorectal mucosa healthy), I&D and debridement of posterior perineum, sent cultures
POD 7 debridement of perineal wound, opening of anterior perineum near (but not involving) base of scrotum; cultures sent
POD 6 flex sig (anorectal mucosa healthy), further perineal wound debridement
POD 4 flex sig (anorectal mucosa helathy), no further debridement, wound clean
1. Appreciate hospitalist
2. Okay for diabetic diet
3. Continue broad-spectrum IV antibiotics; follow-up cultures; appreciate ID. OR Cx / - ecoli and strep agalactiae, OR Cx 4/14 - GNR.
4. Pain control
5. Undiagnosed diabetes, cont insulin mgmt per primary
6. S/p ostomy marking; appreciate wound care
7. Daily WTD packing with kerlix (and PRN for stool contamination or saturation)
8. May need diverting ostomy, but ostomy creation has many risks; currently has sensation and continence. Will monitor for wound care/stool contamination for next 3-4 days before determining if ostomy is necessary. Patient is improving and had
control last night.
Original Note:
Today's Communication / Plan
-
dressing changes
broad spectrum antibiotics
monitor ?ostomy
Assessment/Plan
-
63-year-old male with PMH of deafness s/p cochlear implants, previous neck abscesses who presents for increasing pain in the left buttock x 1 week; 2 to 3 days ago, the abscess opened and started draining; he went to an urgent care today, who sent
him to the ED; WBC 24, glucose 518, creatinine 1.0, Hb 14, afebrile but tachycardic to 120s, CT showing concern for Shilpa's
POD 9 flex sig (anorectal mucosa healthy), I&D and debridement of posterior perineum, sent cultures
POD 7 debridement of perineal wound, opening of anterior perineum near (but not involving) base of scrotum; cultures sent
POD 6 flex sig (anorectal mucosa healthy), further perineal wound debridement
POD 4 flex sig (anorectal mucosa helathy), no further debridement, wound clean
1. Appreciate hospitalist
2. Okay for diabetic diet
3. Continue broad-spectrum IV antibiotics; follow-up cultures; appreciate ID. OR Cx 01/16 - ecoli and strep agalactiae, OR Cx 01/18 - GNR.
4. Pain control
5. Undiagnosed diabetes, cont insulin mgmt per primary
6. S/p ostomy marking; appreciate wound care
7. Daily WTD packing with kerlix (and PRN for stool contamination or saturation)
8. May need diverting ostomy, but ostomy creation has many risks; currently has sensation and continence. Will monitor for wound care/stool contamination for next 3-4 days before determining if ostomy is necessary. Patient is improving and had
control last night.
Subjective Data
Procedure
01/19/2024- Exam under anesthesia, excision and debridement of necrotic tissue of the perineum
01/17/2024- Flexible sigmoidoscopy, exam under anesthesia, incision and drainage of left gluteal abscess, extensive debridement of necrotic tissue, pulse irrigation
Subjective Data
Date of Service: January 25, 2024
Patient states he had a bowel movement last night and had control. His pain is controlled. He has no complaints.
Objective Data
-
Vital Signs
Temp Pulse Resp BP Pulse Ox
98.2 F 72 18 124/69 96
01/25/24 07:23 01/25/24 07:23 01/25/24 07:23 01/25/24 07:23 01/25/24 07:23
Intake & Output
01/24/24 01/25/24 01/26/24
06:59 06:59 06:59
Intake Total 1420 / 1420 1480 / 1480
Output Total 1050 / 1050
Balance 370 / 370 1480 / 1480
Intake:
Oral fluids 1080 / 1080 960 / 960
IV fluids (Total) 280 / 280
IV piggybacks 340 / 340 240 / 240
Output:
Urine, Brandt 700 / 700
Urine, Voided 350 / 350
Other:
Number of approximated MODERATE 1 3
amounts of urine
Number of approximated LARGE 1
amounts of urine
Lab Results
01/25/24 03:59
01/25/24 03:59
Physical Exam
-
General: No Acute Distress and AOx3
Abdomen: Soft, Non Distended and Non Tender
Wound: Other (posterior wound with granulation tissue, anterior wound with some green/bloody discharge. No active bleeding. Both dressings replaced. No erythema. )
--- NOTE | 2024-01-25 10:58 | W.PN.ID1 ---
Date of Service
Date of Service: January 25, 2024
Today's Communication
Continue antibiotics.
Assessment / Plan
Necrotizing Fasciitis
Newly Diagnosed DM2
- wound cultures from OR notable for GBS and susceptible e coli
- continue Unasyn (day #9) while inpatient.
- when approaching discharge can likely transition to Augmentin. Would complete 14 days of therapy 01/16-01/30
- will need fci, aggressive DM2 control
- follow clinically
Chief Complaint
-: Other (necrotizing fasciitis)
Subjective / Review of Systems
Review of Systems: No Fever and No Chills
Vital Signs / Physical Exam
Vital Signs
Vital Signs
Temp Pulse Resp BP Pulse Ox
98.2 F 72 18 124/69 96
01/25/24 07:23 01/25/24 07:23 01/25/24 07:23 01/25/24 07:23 01/25/24 07:23
Physical Exam
Constitutional: No Acute Distress, Comfortable and Non-toxic
Eyes: Sclera Anicteric
Pulmonary: Non Labored
Wound: Other (wounds dressed)
Neurological: Awake and Alert
Psychological: Calm
Objective Data
Lab Data
Lab Results
01/25/24 03:59
01/25/24 03:59
ESR Cancelled 01/17/24 12:52
PT 16.8 Sec (11.4-14.6) H 01/17/24 19:14
INR 1.38 01/17/24 19:14
APTT 31.3 Sec (23.4-35.0) 01/17/24 19:14
Estimated Creat Clear > 125 ml/min 01/25/24 03:59
Total Bilirubin 0.8 mg/dl (0.2-1.3) 01/17/24 12:10
AST 27 U/L (17-59) 01/17/24 12:10
ALT 33 U/L (0-50) 01/17/24 12:10
Alkaline Phosphatase 215 U/L (38-126) H 01/17/24 12:10
C-Reactive Protein Cancelled 01/17/24 12:52
Most recent labs reviewed.
Micro Results:
01/17/24 14:39 Blood Culture - Final
Blood/Venous No Growth - Final Report
01/17/24 14:39 Blood Culture - Final
Blood/Venous No Growth - Final Report
01/17/24 17:17 Wound Culture - Final
Abscess Escherichia coli
Streptococcus agalactiae
Gram Stain - Final
01/17/24 17:17 Anaerobic Culture - Final
Abscess
01/19/24 16:19 Tissue Culture - Final
Perineum Escherichia coli
Streptococcus species
Gram Stain - Final
01/17/24 12:10 Wound Culture - Final
Abscess Escherichia coli
Streptococcus agalactiae
Gram Stain - Final
01/18/24 04:37 MRSA Screen - Final
Nose No Methicillin Resistant Staphylococcus aureus isolated.
[2024-01-25 11:38] LABS: Glucose - Point of Care 149 mg/dl (70-99)
--- NOTE | 2024-01-25 12:23 | W.PN.HOSP.TC ---
Today's Communication/Plan
-
Continue current care
Assessment / Plan
Assessment / Plan
Gen-AAOx3, NAD, obese
HEENT-NC, AT, anicteric, clear oral mm
Neck-supple
CV-reg, no M, +S1/S2
Lungs-clear B/L
Abd-soft, NT, ND
Ext-no edema
Musculoskeletal-no cyanosis, clubbing
Skin-warm and dry
Neuro-grossly non-focal
Psych-calm, cooperative
Sepsis due to necrotizing fasciitis of perineum/left gluteal abscess -improving, and white blood cell count coming down, afebrile. Blood cultures negative. Wound cultures noted. IV Unasyn per ID.
Left gluteal abscess drained in the operating room on January 16. Extensive debridement of necrotic tissue and pulse irrigation performed.
Returned to the OR January 19 for further debridement of perennial wound and digital disimpaction, flexible sigmoidoscopy.
Returned to the OR January 21 for flexible sigmoidoscopy, examined under anesthesia, debridement of perennial wound, pulse irrigation.
Colorectal surgery wants to wait until Saturday to decide if diverting ostomy is necessary.
Acute diarrhea -likely antibiotic associated. Stools becoming more formed as per patient.
Hyponatremia -sodium stable at 134. 48 ounce fluid restriction ordered.
New Dx DM2 with hyperglycemia - HgbA1c 14.2%. He has not been to the primary care doctor in 7 years. Not on home medications. Continue basal bolus insulin. Glucose is improving.
Diabetes CODING DIRECTOR managing.
Hx of cochlear implants
Hypokalemia -improved.
Obesity due to excess calories
DVT ppx: SCDs
Full code
Anticipated Discharge: > 48 hours
Subjective/Interval History
-
Date of Service: January 25, 2024
Patient seen/examined. No complaints.
Objective Data
-
Labs:
Laboratory Results
01/25/24
03:59
WBC 11.7 H
Hgb 11.3 L
Hct 32.8 L
Plt Count 299
Sodium 134 L
Potassium 3.5
Chloride 101
Carbon Dioxide 32 H
BUN 8 L
Creatinine 0.6 L
Glucose 130 H
Calcium 8.2 L
Vital Signs:
Vital Signs
Temp Pulse Resp BP Pulse Ox
98.2 F 72 18 124/69 96
01/25/24 07:23 01/25/24 07:23 01/25/24 07:23 01/25/24 07:23 01/25/24 07:23
I&O
01/24/24 01/25/24 01/26/24
06:59 06:59 06:59
Intake Total 1420 / 1420 1480 / 1480
Output Total 1050 / 1050
Balance 370 / 370 1480 / 1480
Review of Systems
-
History Source: Patient
All other systems: Reviewed and negative
[2024-01-25 16:46] LABS: Glucose - Point of Care 133 mg/dl (70-99)
[2024-01-25 21:01] LABS: Glucose - Point of Care 154 mg/dl (70-99)
[2024-01-25] MEDS: MELATONIN 3 MG PO (21:50)
[2024-01-25] MEDS: LANTUS 0.200000000000000011 UNITS SC (21:51)
[2024-01-25 23:02] VITALS: BP 144/84
[2024-01-26] MEDS: UNASYN IV ×4 (04:20→22:15)
[2024-01-26] MEDS: TYLENOL 1000 MG PO ×4 (04:21→22:15)
[2024-01-26 04:41] LABS: % Basophils 0.5 % (0-2); % Eosinophils 1.4 % (0-6); % Immature Granulocytes 4.5 % (0-0.5); % Lymphocytes 14.1 % (20.5-51.1); % Monocytes 5.1 % (1.7-9.3); % Neutrophils 74.4 % (42.2-75.2); Absolute Basophils 0.1 10^3/uL (0-0.2); Absolute Eosinophils 0.2 10^3/uL (0-0.7); Absolute Immature Granulocytes 0.7 10^3/uL (0-0.05); Absolute Lymphocytes 2.1 10^3/uL (1.2-3.4); Absolute Monocytes 0.8 10^3/uL (0.1-0.6); Absolute Neutrophils 11.3 10^3/uL (1.4-6.5); Hematocrit 31.7 % (39.0-52.0); Hemoglobin 10.8 g/dL (13.0-18.0); Mean Corp Hgb Conc. 34.1 g/dL (33.0-37.0); Mean Corpuscular Hgb 28.5 pg (27.0-31.0); Mean Corpuscular Volume 83.6 fL (80.0-94.0); Mean Platelet Volume 9.7 fL (7.4-10.4); Nucleated Red Blood Cells % 0 % (-); Platelet Count 310 10^3/uL (130-400); Red Blood Cell Count 3.79 10^6/uL (4.70-6.10); Red Cell Dist. Width 13.7 % (11.5-14.5); White Blood Cell Count 15.2 10^3/uL (4.8-10.8)
[2024-01-26 05:07] LABS: Blood Urea Nitrogen 9 mg/dl (9-20); Calcium 8.4 mg/dl (8.4-10.2); Carbon Dioxide 30 mmol/L (22-30); Chloride 100 mmol/L (98-107); Estimated Creatinine Clearance > 125 ml/min; Glucose 118 mg/dl (70-99); Potassium 3.5 mmol/L (3.5-5.1); Sodium 133 mmol/L (135-145); eGFR > 60.00
--- NOTE | 2024-01-26 06:24 | PTCARENOTE ---
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 Pt encouraged to speak with MD and CM r/t upcoming discharge and needs he may
require at d/c to help alleviate some of concerns at home and work.
[2024-01-26 07:38] LABS: Glucose - Point of Care 109 mg/dl (70-99)
[2024-01-26 07:52] VITALS: BP 125/64
[2024-01-26] MEDS: DILAUDID 1 MG IV (07:59)
--- NOTE | 2024-01-26 08:30 | W.PN.CRS1 ---
Addendum entered and electronically signed by Deonte Philippe MD 01/26/24 08:52:
Patient seen and examined. Agree with assessment plan as documented below.
Original Note:
Today's Communication / Plan
-
wound care with dressing changes
prn anxiety
Assessment/Plan
-
63-year-old male with PMH of deafness s/p cochlear implants, previous neck abscesses who presents for increasing pain in the left buttock x 1 week; 2 to 3 days ago, the abscess opened and started draining; he went to an urgent care today, who sent
him to the ED; WBC 24, glucose 518, creatinine 1.0, Hb 14, afebrile but tachycardic to 120s, CT showing concern for Shilpa's
POD# 10 flex sig (anorectal mucosa healthy), I&D and debridement of posterior perineum, sent cultures
POD#11 debridement of perineal wound, opening of anterior perineum near (but not involving) base of scrotum; cultures sent
POD#6 flex sig (anorectal mucosa healthy), further perineal wound debridement
POD#4 flex sig (anorectal mucosa helathy), no further debridement, wound clean
1. Appreciate hospitalist
2. Okay for diabetic diet
3. Continue broad-spectrum IV antibiotics; follow-up cultures; appreciate ID. OR Cx 4/12 - ecoli and strep agalactiae, OR Cx 4/14 - GNR.
4. Pain control
5. Undiagnosed diabetes, cont insulin mgmt per primary
6. S/p ostomy marking; appreciate wound care
7. Daily WTD packing with kerlix (and PRN for stool contamination or saturation)
8. May need diverting ostomy, but ostomy creation has many risks; currently has sensation and continence. Will monitor for wound care/stool contamination. Patient is improving and had control over the past two days.
9. PRN Ativan for anxiety.
Subjective Data
Procedure
01/19/2024- Exam under anesthesia, excision and debridement of necrotic tissue of the perineum
01/17/2024- Flexible sigmoidoscopy, exam under anesthesia, incision and drainage of left gluteal abscess, extensive debridement of necrotic tissue, pulse irrigation
Subjective Data
Date of Service: January 26, 2024
Patient states he has bowel movements with control. He had a lot of anxiety last night. He denies abdominal pain, nausea or vomiting.
Objective Data
-
Vital Signs
Temp Pulse Resp BP Pulse Ox
98.5 F 75 18 125/64 95
01/26/24 07:52 01/26/24 07:52 01/26/24 07:52 01/26/24 07:52 01/26/24 07:52
Intake & Output
01/25/24 01/26/24 01/27/24
06:59 06:59 06:59
Intake Total 1480 / 1480 1380 / 1380
Balance 1480 / 1480 1380 / 1380
Intake:
Oral fluids 960 / 960 1140 / 1140
IV fluids (Total) 280 / 280
IV piggybacks 240 / 240 240 / 240
Other:
Number of approximated MODERATE 3 2
amounts of urine
Lab Results
01/26/24 04:14
01/26/24 04:14
Physical Exam
-
General: No Acute Distress and AOx3
Abdomen: Soft, Non Distended and Non Tender
Wound: Dressing Changed (anterior and posterior wound with granulation tissue, scant discharge, no active bleeding)
[2024-01-26] MEDS: NOVOLOG FLEXPEN-LOW RESISTANCE SC ×3 (09:01→17:18)
[2024-01-26] MEDS: GLUCOPHAGE 500 MG PO ×2 (09:23→16:04)
[2024-01-26] MEDS: KCL 20 MEQ PO ×3 (09:23→20:17)
[2024-01-26] MEDS: NOVOLOG FLEXPEN 7 UNITS SC ×3 (09:23→17:19)
--- NOTE | 2024-01-26 10:15 | W.PN.HOSP.TC ---
Today's Communication/Plan
-
Increase KCl to 3 times daily
Assessment / Plan
Assessment / Plan
Gen-AAOx3, NAD, obese
HEENT-NC, AT, anicteric, clear oral mm
Neck-supple
CV-reg, no M, +S1/S2
Lungs-clear B/L
Abd-soft, NT, ND
Ext-no edema
Musculoskeletal-no cyanosis, clubbing
Skin-warm and dry
Neuro-grossly non-focal
Psych-calm, cooperative
Sepsis due to necrotizing fasciitis of perineum/left gluteal abscess -improving, and white blood cell count coming down, afebrile. Blood cultures negative. Wound cultures noted. IV Unasyn per ID.
Left gluteal abscess drained in the operating room on January 16. Extensive debridement of necrotic tissue and pulse irrigation performed.
Returned to the OR January 19 for further debridement of perennial wound and digital disimpaction, flexible sigmoidoscopy.
Returned to the OR January 21 for flexible sigmoidoscopy, examined under anesthesia, debridement of perennial wound, pulse irrigation.
Colorectal surgery wants to wait until Saturday to decide if diverting ostomy is necessary.
Acute diarrhea -likely antibiotic associated. Stools becoming more formed as per patient.
Hyponatremia -sodium stable at 133. 48 ounce fluid restriction ordered.
New Dx DM2 with hyperglycemia - HgbA1c 14.2%. He has not been to the primary care doctor in 7 years. Not on home medications. Continue basal bolus insulin. Glucose is improving.
Diabetes SUPERVISOR STAGE CARPENTRY managing.
Hx of cochlear implants
Hypokalemia -improved.
Obesity due to excess calories
DVT ppx: SCDs
Full code
Anticipated Discharge: > 48 hours
Subjective/Interval History
-
Date of Service: January 26, 2024
Patient seen and examined. Doing well. No complaints.
Objective Data
-
Labs:
Laboratory Results
01/26/24
04:14
WBC 15.2 H
Hgb 10.8 L
Hct 31.7 L
Plt Count 310
Sodium 133 L
Potassium 3.5
Chloride 100
Carbon Dioxide 30
BUN 9
Creatinine 0.6 L
Glucose 118 H
Calcium 8.4
Vital Signs:
Vital Signs
Temp Pulse Resp BP Pulse Ox
98.5 F 75 18 125/64 95
01/26/24 07:52 01/26/24 07:52 01/26/24 07:52 01/26/24 07:52 01/26/24 07:52
I&O
01/25/24 01/26/24 01/27/24
06:59 06:59 06:59
Intake Total 1480 / 1480 1380 / 1380
Balance 1480 / 1480 1380 / 1380
Review of Systems
-
History Source: Patient
All other systems: Reviewed and negative
[2024-01-26 11:50] LABS: Glucose - Point of Care 143 mg/dl (70-99)
[2024-01-26] MEDS: ATIVAN 0.5 MG PO (15:10)
[2024-01-26 15:22] VITALS: BP 122/59
[2024-01-26 16:42] LABS: Glucose - Point of Care 125 mg/dl (70-99)
[2024-01-26 21:29] LABS: Glucose - Point of Care 144 mg/dl (70-99)
[2024-01-26] MEDS: LANTUS 0.200000000000000011 UNITS SC (22:14)
[2024-01-26 23:55] VITALS: BP 131/66
[2024-01-27] MEDS: ROXICODONE 5 MG PO ×2 (03:22→07:49)
[2024-01-27] MEDS: UNASYN IV ×2 (03:22→11:08)
[2024-01-27] MEDS: TYLENOL 1000 MG PO ×4 (04:11→21:50)
[2024-01-27 06:26] LABS: % Basophils 0.5 % (0-2); % Eosinophils 1.7 % (0-6); % Immature Granulocytes 2.9 % (0-0.5); % Monocytes 5.6 % (1.7-9.3); % Neutrophils 71.3 % (42.2-75.2); Absolute Basophils 0.1 10^3/uL (0-0.2); Absolute Eosinophils 0.2 10^3/uL (0-0.7); Absolute Immature Granulocytes 0.4 10^3/uL (0-0.05); Absolute Lymphocytes 2.2 10^3/uL (1.2-3.4); Absolute Monocytes 0.7 10^3/uL (0.1-0.6); Absolute Neutrophils 8.6 10^3/uL (1.4-6.5); Hematocrit 32.6 % (39.0-52.0); Hemoglobin 11.2 g/dL (13.0-18.0); Mean Corp Hgb Conc. 34.4 g/dL (33.0-37.0); Mean Corpuscular Hgb 28.9 pg (27.0-31.0); Mean Corpuscular Volume 84.2 fL (80.0-94.0); Mean Platelet Volume 9.7 fL (7.4-10.4); Nucleated Red Blood Cells % 0 % (-); Platelet Count 327 10^3/uL (130-400); Red Blood Cell Count 3.87 10^6/uL (4.70-6.10); Red Cell Dist. Width 14.1 % (11.5-14.5)
[2024-01-27 06:55] LABS: Blood Urea Nitrogen 9 mg/dl (9-20); Calcium 8.4 mg/dl (8.4-10.2); Carbon Dioxide 32 mmol/L (22-30); Chloride 101 mmol/L (98-107); Estimated Creatinine Clearance > 125 ml/min; Glucose 115 mg/dl (70-99); Potassium 3.9 mmol/L (3.5-5.1); Sodium 133 mmol/L (135-145); eGFR > 60.00
[2024-01-27] MEDS: NOVOLOG FLEXPEN-LOW RESISTANCE SC ×2 (07:40→13:05)
[2024-01-27] MEDS: GLUCOPHAGE 500 MG PO ×2 (07:41→17:00)
[2024-01-27] MEDS: KCL 20 MEQ PO ×3 (07:41→21:50)
[2024-01-27 07:42] LABS: Glucose - Point of Care 114 mg/dl (70-99)
[2024-01-27 07:50] VITALS: BP 132/60
--- NOTE | 2024-01-27 08:07 | PN.DE.MGMTRT ---
Insulin Management
- -
01/27/2024: Diabetes Management F/U:
Patient admitted on 01/16 with a Gluteal abscess. Glucose on admission was 518, A1C 14.2%, initiated on glycemic protocol. 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
Patient is awake, A/Ox3, resting in bed in side lying position, offers no complaints and able to engage in discussion regarding diabetes management.
Reports he is doing well with self adm of insulin.
Glucose remained stable throughout the weekend. will cont current regimen w/o changes
Cont Lantus 20 units @HS, NovoLog 7 units AC with low corrective and Metformin 500mg BID.
Provided monitor instructions, will return in AM to reinforce instructions with at bedside. Will add script for supplies.
Diabetes History
- -
Type of Diabetes: 2 requiring insulin
Pre-Admission Diabetes Regimen
01/27/24
05:48
Creatinine 0.7
Lab Results
Hemoglobin A1c 14.2 % (4.0-5.6) H 01/18/24 04:18
Insulin Pump Settings
IP Diabetes Regimen
01/26/24 01/26/24 01/26/24
11:44 16:41 21:28
Glucose
POC Glucose 143 H 125 H 144 H
01/27/24 01/27/24
05:48 07:40
Glucose 115 H
POC Glucose 114 H
Patient Education
--- NOTE | 2024-01-27 08:45 | W.PN.CRS1 ---
Today's Communication / Plan
-
no plans for ostomy
wound care
abx
Assessment/Plan
-
63-year-old male with PMH of deafness s/p cochlear implants, previous neck abscesses who presents for increasing pain in the left buttock x 1 week; 2 to 3 days ago, the abscess opened and started draining; he went to an urgent care today, who sent
him to the ED; WBC 24, glucose 518, creatinine 1.0, Hb 14, afebrile but tachycardic to 120s, CT showing concern for Shilpa's
POD# 11 flex sig (anorectal mucosa healthy), I&D and debridement of posterior perineum, sent cultures
POD#12 debridement of perineal wound, opening of anterior perineum near (but not involving) base of scrotum; cultures sent
POD#7 flex sig (anorectal mucosa healthy), further perineal wound debridement
POD#5 flex sig (anorectal mucosa helathy), no further debridement, wound clean
1. Appreciate hospitalist
2. Okay for diabetic diet
3. Continue broad-spectrum IV antibiotics; follow-up cultures; appreciate ID. OR Cx 4/12 - ecoli and strep agalactiae, OR Cx 4/14 - GNR. WBC trending down today.
4. Pain control
5. Undiagnosed diabetes, cont insulin mgmt per primary
6. S/p ostomy marking; appreciate wound care
7. Daily WTD packing with kerlix (and PRN for stool contamination or saturation)
8. No plans for surgery so far, patient has bowel control and is keeping the wounds clean.
9. PRN Ativan for anxiety.
Subjective Data
Procedure
01/19/2024- Exam under anesthesia, excision and debridement of necrotic tissue of the perineum
01/17/2024- Flexible sigmoidoscopy, exam under anesthesia, incision and drainage of left gluteal abscess, extensive debridement of necrotic tissue, pulse irrigation
Subjective Data
Date of Service: January 27, 2024
The patient states he feels better. He has control with his bowel movements and is keeping his wounds clean. He denies nausea or vomiting. His pain is controlled. 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
Objective Data
-
Vital Signs
Temp Pulse Resp BP Pulse Ox
98.3 F 79 17 132/60 95
01/27/24 07:50 01/27/24 07:50 01/27/24 07:50 01/27/24 07:50 01/27/24 07:50
Intake & Output
01/26/24 01/27/24 01/28/24
06:59 06:59 06:59
Intake Total 1380 / 1380 1440 / 1440
Balance 1380 / 1380 1440 / 1440
Intake:
Oral fluids 1140 / 1140 920 / 920
IV fluids (Total) 40 / 40
IV piggybacks 240 / 240 480 / 480
Other:
Number of approximated MODERATE 2 2
amounts of urine
Lab Results
01/27/24 05:48
01/27/24 05:48
Physical Exam
-
General: No Acute Distress and AOx3
Abdomen: Soft, Non Distended and Non Tender
Wound: Dressing Changed (anterior and posterior wounds with granulation tissue, no active bleeding, no pus, j[place] in place)
[2024-01-27] MEDS: NOVOLOG FLEXPEN 7 UNITS SC ×3 (09:25→17:02)
[2024-01-27] MEDS: ATIVAN 0.5 MG PO ×2 (10:00→17:00)
--- NOTE | 2024-01-27 11:57 | W.PN.ID1 ---
Date of Service
Date of Service: January 27, 2024
Today's Communication
- transition to Augmentin. Would complete 14 days of therapy 01/16-01/30
- will need senior living, aggressive DM2 control
Assessment / Plan
Necrotizing Fasciitis - resolved
Newly Diagnosed DM2
- wound cultures from OR notable for GBS and susceptible e coli
- transition to Augmentin. Would complete 14 days of therapy 01/16-01/30
- will need shopper, aggressive DM2 control
- follow up with surgery, PCP
Chief Complaint
-: Other (necrotizing fasciitis)
Subjective / Review of Systems
afebrile
bp stable
minimal leukocytosis
no L shift
cr 0.7
loose stools - becoming formed
Vital Signs / Physical Exam
Vital Signs
Vital Signs
Temp Pulse Resp BP Pulse Ox
98.3 F 79 17 132/60 95
01/27/24 07:50 01/27/24 07:50 01/27/24 07:50 01/27/24 07:50 01/27/24 08:00
Physical Exam
Constitutional: No Acute Distress
Cardiovascular: Regular Rate and S1/S2; Negative Murmur or Rub
Pulmonary: Clear and Symmetric; Negative Wheezes or Rales
Gastrointestinal: Soft, Non Tender, Non Distended and Normal Bowel Sounds
Skin: Warm and Dry; Negative Rash or Jaundice
Objective Data
Lab Data
Lab Results
01/27/24 05:48
01/27/24 05:48
ESR Cancelled 01/17/24 12:52
PT 16.8 Sec (11.4-14.6) H 01/17/24 19:14
INR 1.38 01/17/24 19:14
APTT 31.3 Sec (23.4-35.0) 01/17/24 19:14
Estimated Creat Clear > 125 ml/min 01/27/24 05:48
Total Bilirubin 0.8 mg/dl (0.2-1.3) 01/17/24 12:10
AST 27 U/L (17-59) 01/17/24 12:10
ALT 33 U/L (0-50) 01/17/24 12:10
Alkaline Phosphatase 215 U/L (38-126) H 01/17/24 12:10
C-Reactive Protein Cancelled 01/17/24 12:52
Most recent labs reviewed.
Micro Results:
01/17/24 14:39 Blood Culture - Final
Blood/Venous No Growth - Final Report
01/17/24 14:39 Blood Culture - Final
Blood/Venous No Growth - Final Report
01/17/24 17:17 Wound Culture - Final
Abscess Escherichia coli
Streptococcus agalactiae
Gram Stain - Final
01/17/24 17:17 Anaerobic Culture - Final
Abscess
01/19/24 16:19 Tissue Culture - Final
Perineum Escherichia coli
Streptococcus species
Gram Stain - Final
01/17/24 12:10 Wound Culture - Final
Abscess Escherichia coli
Streptococcus agalactiae
Gram Stain - Final
01/18/24 04:37 MRSA Screen - Final
Nose No Methicillin Resistant Staphylococcus aureus isolated.
Care Review
Plan reviewed with: Physician (Dr Alexys carpenter)
--- NOTE | 2024-01-27 12:37 | W.PN.HOSP.TC ---
Today's Communication/Plan
-
oral Abx
diabetes management DIRECTOR DATA following
wound care
Assessment / Plan
Assessment / Plan
Assessment:
Sepsis due to necrotizing fasciitis of perineum/left gluteal abscess -improving, and white blood cell count coming down, afebrile. Blood cultures negative. Wound cultures noted.
- Left gluteal abscess drained in the operating room on January 16. Extensive debridement of necrotic tissue and pulse irrigation performed.
- Returned to the OR January 19 for further debridement of perennial wound and digital disimpaction, flexible sigmoidoscopy.
- Returned to the OR January 21 for flexible sigmoidoscopy, examined under anesthesia, debridement of perennial wound, pulse irrigation.
- Cleared by CRS for dc with local wound care. VN consulted. no plan for ostomy currently
- per ID, continue PO Augmentin until 01/30
Acute diarrhea - likely antibiotic associated. Stools becoming more formed as per patient.
Hyponatremia - sodium stable at 133. 48 ounce fluid restriction ordered.
New Dx DM2 with hyperglycemia - HgbA1c 14.2%. He has not been to the primary care doctor in 7 years. Not on home medications. Continue basal bolus insulin. Glucose is improving.
Diabetes DIRECTOR DATA managing and patient receiving education.
Patient recommended to setup CGM with PCP outpatient.
Hx of cochlear implants
Hypokalemia - improved.
Obesity due to excess calories
DVT ppx: SCDs
Full code
Anticipated Discharge: Within 24 hours
Subjective/Interval History
-
Date of Service: January 27, 2024
feels better. BMs controlled and formed, helping to keep wounds clean. No complaints otherwise but anxious to get home as soon as possible
Objective Data
-
Labs:
Laboratory Results
01/27/24
05:48
WBC 12.0 H
Hgb 11.2 L
Hct 32.6 L
Plt Count 327
Sodium 133 L
Potassium 3.9
Chloride 101
Carbon Dioxide 32 H
BUN 9
Creatinine 0.7
Glucose 115 H
Calcium 8.4
Vital Signs:
Vital Signs
Temp Pulse Resp BP Pulse Ox
98.3 F 79 17 132/60 95
01/27/24 07:50 01/27/24 07:50 01/27/24 07:50 01/27/24 07:50 01/27/24 08:00
I&O
01/26/24 01/27/24 01/28/24
06:59 06:59 06:59
Intake Total 1380 / 1380 1440 / 1440
Balance 1380 / 1380 1440 / 1440
Physical Exam
-
General: No Apparent Distress
HEENT: Normocephalic and Atraumatic
Respiratory: Negative Wheezes or Rales
Cardiac: Regular Rhythm and S1/S2
GI: Soft
Genito-urinary: No Costovertebral Tender
Psych: Calm
Data Reviewed
-
Total Time Spent with Patient (in minutes): 41
Labs: Labs Reviewed by me
--- NOTE | 2024-01-27 12:57 | CM ---
Reviewed the chart notes. consult received for VN. The patient will need VN services when discharged. Referral sent to VN. VN has accepted the patient.
Plan: Discharge to home with VN services.
[2024-01-27 13:01] LABS: Glucose - Point of Care 132 mg/dl (70-99)
--- NOTE | 2024-01-27 13:34 | PN.DE ---
Diabetes Education
- -
Diabetes Education
Met with Mr. Villalobos for glucose monitor instructions. Current A1C 14.4%.
Discussed A1C and average blood sugar of >350, diabetes related short and alf complications, life style modification and self management at home.
Provided with Contour Next EZ glucometer, instructions with good return demonstration, result 135 mg/dl before lunch.
Discussed testing pattern and expected results and information marked in the take home booklet. Discussed and reviewed importance of reducing CHO intake, being active and checking BS to assess food/medication effect on his BS. Encourage physical
activity and benefit of losing weight. States this was a wake up call and that he is motivated to make all the necessary change to get his diabetes under control.
Discussed OP DSME classes, requested if he can attend with his , was notified that program encourages spouses and SO to attend.
Will need RX for test strips and lancets for the Contour Next EZ, testing 4x/day at discharge.
Discussed plan of care including medications for management at home and encouraged him to get script for CGM when he goes to see his PCP
Updates given to Pt's nurse
[2024-01-27 15:22] VITALS: BP 122/67
[2024-01-27 16:42] LABS: Glucose - Point of Care 166 mg/dl (70-99)
[2024-01-27] MEDS: NOVOLOG FLEXPEN-LOW RESISTANCE 1 UNITS SC (17:02)
[2024-01-27] MEDS: AUGMENTIN 875 MG/125 MG 1 TABLET PO (20:14)
[2024-01-27 21:50] LABS: Glucose - Point of Care 118 mg/dl (70-99)
[2024-01-27] MEDS: LANTUS 0.200000000000000011 UNITS SC (21:50)
[2024-01-27 23:19] VITALS: BP 122/69
[2024-01-28] MEDS: ROXICODONE 5 MG PO ×2 (00:30→03:45)
[2024-01-28] MEDS: TYLENOL 1000 MG PO ×4 (03:45→22:11)
[2024-01-28 06:30] LABS: % Basophils 0.5 % (0-2); % Eosinophils 1.7 % (0-6); % Immature Granulocytes 1.5 % (0-0.5); % Lymphocytes 19.6 % (20.5-51.1); % Monocytes 6.6 % (1.7-9.3); % Neutrophils 70.1 % (42.2-75.2); Absolute Basophils 0.1 10^3/uL (0-0.2); Absolute Eosinophils 0.2 10^3/uL (0-0.7); Absolute Immature Granulocytes 0.2 10^3/uL (0-0.05); Absolute Lymphocytes 2.4 10^3/uL (1.2-3.4); Absolute Monocytes 0.8 10^3/uL (0.1-0.6); Absolute Neutrophils 8.5 10^3/uL (1.4-6.5); Hematocrit 32.8 % (39.0-52.0); Hemoglobin 10.9 g/dL (13.0-18.0); Mean Corp Hgb Conc. 33.2 g/dL (33.0-37.0); Mean Corpuscular Hgb 28.7 pg (27.0-31.0); Mean Corpuscular Volume 86.3 fL (80.0-94.0); Mean Platelet Volume 9.8 fL (7.4-10.4); Nucleated Red Blood Cells % 0 % (-); Platelet Count 336 10^3/uL (130-400); Red Cell Dist. Width 13.8 % (11.5-14.5); White Blood Cell Count 12.1 10^3/uL (4.8-10.8)
[2024-01-28 07:06] LABS: Blood Urea Nitrogen 11 mg/dl (9-20); Calcium 8.5 mg/dl (8.4-10.2); Carbon Dioxide 30 mmol/L (22-30); Chloride 102 mmol/L (98-107); Estimated Creatinine Clearance > 125 ml/min; Glucose 109 mg/dl (70-99); Potassium 4.4 mmol/L (3.5-5.1); Sodium 132 mmol/L (135-145); eGFR > 60.00
[2024-01-28 07:08] VITALS: BP 120/62
--- NOTE | 2024-01-28 07:12 | PN.DE.MGMTRT ---
Insulin Management
- -
01/28/2024: Diabetes Management Follow up:
Patient admitted on 01/16 with a Gluteal abscess. Glucose on admission was 518, A1C 14.2%, initiated on glycemic protocol. 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
Patient is awake alert and oriented, washing at sind initially, returned to review monitor, patient in bed side lying. Brandy do is at bedside.
Reports he is doing well with self adm of insulin.
Glucose remains stable, 109 to 166, required only 1 units of corrective insulin. Will cont current regimen Lantus 20 units @HS, NovoLog 7 units AC with low corrective and Metformin 500mg BID.
Patient has been provided with a Contour Next glucose monitor and instructed on steps for testing as well as times to test.
Reviewed steps to test blood glucose with patient and , patient did excellent with set up of lancing device. states she feels confident with steps if he should need support.
RX for insulin and supplies in ambulatory orders.
Diabetes History
- -
Type of Diabetes: 2 requiring insulin
Pre-Admission Diabetes Regimen
01/28/24
05:53
Creatinine 0.7
Lab Results
Hemoglobin A1c 14.2 % (4.0-5.6) H 01/18/24 04:18
Insulin Pump Settings
IP Diabetes Regimen
01/27/24 01/27/24 01/27/24
07:40 13:00 16:41
Glucose
POC Glucose 114 H 132 H 166 H
01/27/24 01/28/24
21:49 05:53
Glucose 109 H
POC Glucose 118 H
Meal type: Lunch
Meal type: Breakfast
Amount consumed: 30%
Amount consumed: 50%
Patient Education
[2024-01-28 07:59] LABS: Glucose - Point of Care 105 mg/dl (70-99)
--- NOTE | 2024-01-28 08:11 | W.PN.CRS1 ---
Today's Communication / Plan
-
continue abx
increase wound changes to BID
monitor wbc
julee removed
Assessment/Plan
-
63-year-old male with PMH of deafness s/p cochlear implants, previous neck abscesses who presents for increasing pain in the left buttock x 1 week; 2 to 3 days ago, the abscess opened and started draining; he went to an urgent care today, who sent
him to the ED; WBC 24, glucose 518, creatinine 1.0, Hb 14, afebrile but tachycardic to 120s, CT showing concern for Shilpa's
POD# 12 flex sig (anorectal mucosa healthy), I&D and debridement of posterior perineum, sent cultures
POD#13 debridement of perineal wound, opening of anterior perineum near (but not involving) base of scrotum; cultures sent
POD#8 flex sig (anorectal mucosa healthy), further perineal wound debridement
POD#6 flex sig (anorectal mucosa helathy), no further debridement, wound clean
1. Appreciate hospitalist
2. On a diabetic diet
3. Continue broad-spectrum IV antibiotics; follow-up cultures; appreciate ID. OR Cx 4/12 - ecoli and strep agalactiae, OR Cx 4/14 - GNR. WBC 12.1.
4. Pain control
5. Undiagnosed diabetes, cont insulin mgmt per primary
6. Increase dressing changes to BID, packing with kerlix (and PRN for stool contamination or saturation).
7. No plans for surgery so far, patient has bowel control and is keeping the wounds clean.
8. Given appearance of wound today and wbc still elevated, recommend remaining in the hospital for at least another day. Julee drain removed.
Subjective Data
Procedure
01/19/2024- Exam under anesthesia, excision and debridement of necrotic tissue of the perineum
01/17/2024- Flexible sigmoidoscopy, exam under anesthesia, incision and drainage of left gluteal abscess, extensive debridement of necrotic tissue, pulse irrigation
Subjective Data
Date of Service: January 28, 2024
Patient states he is tolerating a diet. He has formed soft bowel movements and has control. He has pain during dressing changes. He denies nausea or vomiting.
Objective Data
-
Vital Signs
Temp Pulse Resp BP Pulse Ox
98.2 F 73 19 120/62 96
01/28/24 07:08 01/28/24 07:08 01/28/24 07:08 01/28/24 07:08 01/28/24 07:08
Intake & Output
01/27/24 01/28/24 01/29/24
06:59 06:59 06:59
Intake Total 1440 / 1440 1080 / 1080
Output Total 600 / 600
Balance 1440 / 1440 480 / 480
Intake:
Oral fluids 920 / 920 1080 / 1080
IV fluids (Total) 40 / 40
IV piggybacks 480 / 480
Output:
Urine, Voided 600 / 600
Other:
Number of approximated MODERATE 2 2
amounts of urine
Lab Results
01/28/24 05:53
01/28/24 05:53
Physical Exam
-
General: No Acute Distress and AOx3
Abdomen: Soft, Non Distended and Non Tender
Wound: Other (anterior and posterior wounds - wet with green mucin, packing changed, granulation tissue present, julee removed)
[2024-01-28] MEDS: NOVOLOG FLEXPEN-LOW RESISTANCE SC (08:52)
[2024-01-28] MEDS: KCL 20 MEQ PO ×3 (08:54→22:11)
[2024-01-28] MEDS: NOVOLOG FLEXPEN 7 UNITS SC ×3 (08:54→16:11)
[2024-01-28] MEDS: AUGMENTIN 875 MG/125 MG 1 TABLET PO ×2 (08:54→20:51)
[2024-01-28] MEDS: GLUCOPHAGE 500 MG PO ×2 (08:54→16:03)
[2024-01-28] MEDS: ATIVAN 0.5 MG PO ×2 (09:03→13:58)
--- NOTE | 2024-01-28 09:55 | CM ---
CM reviewed pt with Dr Reardon- TYRON tomorrow
Pt accepted for service by [facility]
VN order on chart
Discharge Disposition- home with VN
--- NOTE | 2024-01-28 11:09 | W.PN.HOSP.TC ---
Today's Communication/Plan
-
CRS to reassess wound tomorrow
DM STICKER HAND to educate today
Assessment / Plan
Assessment / Plan
Assessment:
Sepsis due to necrotizing fasciitis of perineum/left gluteal abscess -improving, and white blood cell count coming down, afebrile. Blood cultures negative. Wound cultures noted.
- Left gluteal abscess drained in the operating room on January 16. Extensive debridement of necrotic tissue and pulse irrigation performed.
- Returned to the OR January 19 for further debridement of perennial wound and digital disimpaction, flexible sigmoidoscopy.
- Returned to the OR January 21 for flexible sigmoidoscopy, examined under anesthesia, debridement of perennial wound, pulse irrigation.
- continue wound care per CRS. VN consulted. no plan for ostomy currently
- per ID, continue PO Augmentin until 01/30
Acute diarrhea - likely antibiotic associated. Stools becoming more formed as per patient.
Hyponatremia - sodium stable at 132. 48 ounce fluid restriction ordered.
New Dx DM2 with hyperglycemia - HgbA1c 14.2%. He has not been to the primary care doctor in 7 years. Not on home medications. Continue basal bolus insulin. Glucose is improving.
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
Patient recommended to setup CGM with PCP outpatient.
Hx of cochlear implants
Hypokalemia - improved.
Obesity due to excess calories
DVT ppx: SCDs
Full code
Anticipated Discharge: 24 - 48 hours
Subjective/Interval History
-
Date of Service: January 28, 2024
tolerating diet, formed BMs
Objective Data
-
Labs:
Laboratory Results
01/28/24
05:53
WBC 12.1 H
Hgb 10.9 L
Hct 32.8 L
Plt Count 336
Sodium 132 L
Potassium 4.4
Chloride 102
Carbon Dioxide 30
BUN 11
Creatinine 0.7
Glucose 109 H
Calcium 8.5
Vital Signs:
Vital Signs
Temp Pulse Resp BP Pulse Ox
98.2 F 73 19 120/62 96
01/28/24 07:08 01/28/24 07:08 01/28/24 07:08 01/28/24 07:08 01/28/24 07:08
I&O
01/27/24 01/28/24 01/29/24
06:59 06:59 06:59
Intake Total 1440 / 1440 1080 / 1080
Output Total 600 / 600
Balance 1440 / 1440 480 / 480
Physical Exam
-
General: No Apparent Distress
HEENT: Normocephalic and Atraumatic
Respiratory: Negative Wheezes or Rales
Cardiac: Regular Rhythm and S1/S2
GI: Soft and Nontender
Musculoskeletal: No Edema
Neuro: AO x 3
Hematologic / Lymphatic: No Lymphadenopathy
Psych: Calm
Data Reviewed
-
Total Time Spent with Patient (in minutes): 42
Labs: Labs Reviewed by me
[2024-01-28 11:52] LABS: Glucose - Point of Care 179 mg/dl (70-99)
[2024-01-28] MEDS: NOVOLOG FLEXPEN-LOW RESISTANCE 1 UNITS SC ×2 (11:55→16:10)
--- NOTE | 2024-01-28 13:01 | W.PN.ID1 ---
Date of Service
Date of Service: January 28, 2024
Today's Communication
- continue Augmentin. Would complete 14 days of therapy 01/16-01/30
- will need chcf, aggressive DM2 control
- follow up with surgery, PCP
Assessment / Plan
Necrotizing Fasciitis - resolved
Newly Diagnosed DM2
- wound cultures from OR notable for GBS and susceptible e coli
- continue Augmentin. Would complete 14 days of therapy 01/16-01/30
- will need chcf, aggressive DM2 control
- follow up with surgery, PCP
Chief Complaint
-: Other (necrotizing fasciitis)
Subjective / Review of Systems
afebrile
bp stable
stable, mild leukocytosis
cr stable
no left shift
note method of doing dressing changes adjusted by surgery for fibrinous exudate
Vital Signs / Physical Exam
Vital Signs
Vital Signs
Temp Pulse Resp BP Pulse Ox
98.2 F 73 19 120/62 96
01/28/24 07:08 01/28/24 07:08 01/28/24 07:08 01/28/24 07:08 01/28/24 07:08
Physical Exam
Constitutional: No Acute Distress
Cardiovascular: Regular Rate and S1/S2; Negative Murmur or Rub
Pulmonary: Clear and Symmetric; Negative Wheezes or Rales
Gastrointestinal: Soft, Non Tender, Non Distended and Normal Bowel Sounds
Skin: Warm and Dry; Negative Rash or Jaundice
Wound: Other (dressing take down deferred to surgery)
Lines: PICC (no erythema, warmth, tenderness or drainage)
Objective Data
Lab Data
Lab Results
01/28/24 05:53
01/28/24 05:53
ESR Cancelled 01/17/24 12:52
PT 16.8 Sec (11.4-14.6) H 01/17/24 19:14
INR 1.38 01/17/24 19:14
APTT 31.3 Sec (23.4-35.0) 01/17/24 19:14
Estimated Creat Clear > 125 ml/min 01/28/24 05:53
Total Bilirubin 0.8 mg/dl (0.2-1.3) 01/17/24 12:10
AST 27 U/L (17-59) 01/17/24 12:10
ALT 33 U/L (0-50) 01/17/24 12:10
Alkaline Phosphatase 215 U/L (38-126) H 01/17/24 12:10
C-Reactive Protein Cancelled 01/17/24 12:52
Most recent labs reviewed.
Micro Results:
01/17/24 14:39 Blood Culture - Final
Blood/Venous No Growth - Final Report
01/17/24 14:39 Blood Culture - Final
Blood/Venous No Growth - Final Report
01/17/24 17:17 Wound Culture - Final
Abscess Escherichia coli
Streptococcus agalactiae
Gram Stain - Final
01/17/24 17:17 Anaerobic Culture - Final
Abscess
01/19/24 16:19 Tissue Culture - Final
Perineum Escherichia coli
Streptococcus species
Gram Stain - Final
01/17/24 12:10 Wound Culture - Final
Abscess Escherichia coli
Streptococcus agalactiae
Gram Stain - Final
01/18/24 04:37 MRSA Screen - Final
Nose No Methicillin Resistant Staphylococcus aureus isolated.
--- NOTE | 2024-01-28 14:44 | VNURNOTE ---
Home Health Liaison met with patient and at 1115 to discuss [facility] nurse visits, schedule and homebound status. Patient is agreeable and understands that visits at home will be 2-3 x per week to assess and teach medical management and wound care.
[facility] brochure provided with contact information. Patient is aware that [facility] will contact him for start of care in 1-2 days after discharge from .
[facility] referral completed and previously accepted in [facility].
[2024-01-28 15:42] VITALS: BP 124/75
[2024-01-28 16:11] LABS: Glucose - Point of Care 184 mg/dl (70-99)
[2024-01-28] MEDS: LANTUS 0.200000000000000011 UNITS SC (22:10)
[2024-01-28 22:11] LABS: Glucose - Point of Care 130 mg/dl (70-99)
[2024-01-28 23:30] VITALS: BP 116/61
[2024-01-29] MEDS: ROXICODONE 5 MG PO (00:48)
[2024-01-29] MEDS: TYLENOL 1000 MG PO ×2 (04:32→11:50)
[2024-01-29 06:44] LABS: % Basophils 0.5 % (0-2); % Eosinophils 1.8 % (0-6); % Lymphocytes 19.3 % (20.5-51.1); % Monocytes 6.8 % (1.7-9.3); % Neutrophils 70.6 % (42.2-75.2); Absolute Basophils 0.1 10^3/uL (0-0.2); Absolute Eosinophils 0.2 10^3/uL (0-0.7); Absolute Immature Granulocytes 0.1 10^3/uL (0-0.05); Absolute Lymphocytes 2.4 10^3/uL (1.2-3.4); Absolute Monocytes 0.8 10^3/uL (0.1-0.6); Absolute Neutrophils 8.8 10^3/uL (1.4-6.5); Hematocrit 32.7 % (39.0-52.0); Hemoglobin 10.9 g/dL (13.0-18.0); Mean Corp Hgb Conc. 33.3 g/dL (33.0-37.0); Mean Corpuscular Hgb 28.8 pg (27.0-31.0); Mean Corpuscular Volume 86.3 fL (80.0-94.0); Mean Platelet Volume 9.7 fL (7.4-10.4); Nucleated Red Blood Cells % 0 % (-); Platelet Count 365 10^3/uL (130-400); Red Blood Cell Count 3.79 10^6/uL (4.70-6.10); Red Cell Dist. Width 13.8 % (11.5-14.5); White Blood Cell Count 12.4 10^3/uL (4.8-10.8)
[2024-01-29 07:11] LABS: Blood Urea Nitrogen 15 mg/dl (9-20); Calcium 8.9 mg/dl (8.4-10.2); Carbon Dioxide 27 mmol/L (22-30); Chloride 102 mmol/L (98-107); Estimated Creatinine Clearance > 125 ml/min; Glucose 114 mg/dl (70-99); Potassium 4.6 mmol/L (3.5-5.1); Sodium 132 mmol/L (135-145); eGFR > 60.00
--- NOTE | 2024-01-29 07:12 | PN.DE.MGMTRT ---
Insulin Management
- -
01/29/2024: Diabetes Management Follow up:
Patient admitted on 01/16 with a Gluteal abscess. Glucose on admission was 518, A1C 14.2%, initiated on glycemic protocol. 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
Patient is awake, alert and oriented, able to discuss diabetes care.
Glucose remains stable, 109 to 184, required only 1 unit of corrective insulin with lunch and dinner. Will cont current regimen Lantus 20 units @HS, NovoLog 7 units AC with low corrective and Metformin 500mg BID.
Patient has been provided with a Contour Next glucose monitor and instructed on steps for testing as well as times to test.
Yesterday reviewed steps to test blood glucose with patient and , patient did excellent with set up of lancing device. states she feels confident with steps if he should need support.
RX for insulin and supplies in ambulatory orders.
Diabetes History
- -
Type of Diabetes: 2 requiring insulin
Pre-Admission Diabetes Regimen
01/29/24
06:16
Creatinine 0.7
Lab Results
Hemoglobin A1c 14.2 % (4.0-5.6) H 01/18/24 04:18
Insulin Pump Settings
IP Diabetes Regimen
01/28/24 01/28/24 01/28/24
07:58 11:51 16:09
Glucose
POC Glucose 105 H 179 H 184 H
01/28/24 01/29/24
22:09 06:16
Glucose 114 H
POC Glucose 130 H
Meal type: Lunch
Amount consumed: 70%
Patient Education
[2024-01-29 07:50] VITALS: BP 115/62
[2024-01-29 07:57] LABS: Glucose - Point of Care 111 mg/dl (70-99)
[2024-01-29] MEDS: AUGMENTIN 875 MG/125 MG 1 TABLET PO (08:31)
[2024-01-29] MEDS: NOVOLOG FLEXPEN-LOW RESISTANCE SC (08:31)
[2024-01-29] MEDS: KCL 20 MEQ PO (08:31)
[2024-01-29] MEDS: GLUCOPHAGE 500 MG PO (08:31)
[2024-01-29] MEDS: NOVOLOG FLEXPEN 7 UNITS SC (08:32)
--- NOTE | 2024-01-29 10:09 | W.PN.HOSP.TC ---
Today's Communication/Plan
-
await CRS evaluation for clearance for DC
continue Augmentin per ID
continue insulin+DM meds as ordered
Assessment / Plan
Assessment / Plan
Assessment:
Sepsis due to necrotizing fasciitis of perineum/left gluteal abscess -improving, and white blood cell count coming down, afebrile. Blood cultures negative. Wound cultures noted.
- Left gluteal abscess drained in the operating room on January 16. Extensive debridement of necrotic tissue and pulse irrigation performed.
- Returned to the OR January 19 for further debridement of perennial wound and digital disimpaction, flexible sigmoidoscopy.
- Returned to the OR January 21 for flexible sigmoidoscopy, examined under anesthesia, debridement of perennial wound, pulse irrigation.
- continue wound care per CRS. VN consulted. no plan for ostomy currently
- follow daily CRS assessment of wound and clearance for discharge
- per ID, continue PO Augmentin until 01/30
Acute diarrhea - likely antibiotic associated. Stools becoming more formed as per patient.
Hyponatremia - sodium stable at 132. 48 ounce fluid restriction ordered.
New Dx DM2 with hyperglycemia - HgbA1c 14.2%. He has not been to the primary care doctor in 7 years. Not on home medications. Continue basal bolus insulin. Glucose is improving.
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
Patient recommended to setup CGM with PCP outpatient.
Hx of cochlear implants
Hypokalemia - improved.
Obesity due to excess calories
DVT ppx: SCDs
Full code
Anticipated Discharge: 24 - 48 hours
Subjective/Interval History
-
Date of Service: January 29, 2024
no new complaints at present
no fevers
feels comfortable with diabetes education/instructions
Objective Data
-
Labs:
Laboratory Results
01/29/24
06:16
WBC 12.4 H
Hgb 10.9 L
Hct 32.7 L
Plt Count 365
Sodium 132 L
Potassium 4.6
Chloride 102
Carbon Dioxide 27
BUN 15
Creatinine 0.7
Glucose 114 H
Calcium 8.9
Vital Signs:
Vital Signs
Temp Pulse Resp BP Pulse Ox
98.5 F 79 16 115/62 97
01/29/24 07:50 01/29/24 07:50 01/29/24 07:50 01/29/24 07:50 01/29/24 07:50
I&O
01/28/24 01/29/24 01/30/24
06:59 06:59 06:59
Intake Total 1080 / 1080 1560 / 1560
Output Total 600 / 600
Balance 480 / 480 1560 / 1560
Physical Exam
-
General: No Apparent Distress
HEENT: Normocephalic and Atraumatic
Respiratory: Negative Wheezes
Cardiac: Regular Rhythm and S1/S2
GI: Soft and Nontender
Neuro: AO x 3
Hematologic / Lymphatic: No Lymphadenopathy
Psych: Calm
Data Reviewed
-
Total Time Spent with Patient (in minutes): 41
Labs: Labs Reviewed by me
--- NOTE | 2024-01-29 10:47 | W.DS.TRANS ---
DC Summary - Process Line Operator
-
Discharge Instructions:
Discharge Diagnosis/Procedures necrotizing fasciitis, new diabetes
Diet Diabetic, Carb Controlled
Activity As tolerated
Bathing Restrictions None
Other Services VN
Instructions:
Stand-Alone Forms:
Changes to Home Medications: No
Discharge Medications:
DC Medications w/original date entered in [employer]
therapeutic multivitamin 1 tab PO DAILY Supplement 01/17/24
blood sugar diagnostic (Contour Next Test Strips) #130 ea 01/27/24
insulin aspart U-100 100 unit/mL (3 mL) subcutaneous pen (Novolog FlexPen U-100 Insulin aspart) 7 unit (0.07 mL) SC AC Diabetes #5 ea 01/27/24
insulin glargine 100 unit/mL (3 mL) subcutaneous pen (Basaglar KwikPen U-100 Insulin) 20 unit (0.2 mL) SC DAILY Diabetes #5 ea 01/27/24
lancets (Microlet Lancet) #130 ea 01/27/24
metformin 500 mg tablet 500 mg PO BID@0800,1700 Diabetes #60 tabs 01/27/24
pen needle, diabetic 32 gauge x 5/32' (BD Ultra-Fine Brigette Pen Needle) #240 ea 01/27/24
acetaminophen 325 mg tablet 650 mg (2 x 325 mg) PO Q4HPRN PRN mild pain/MARIA/temp> 100.4F #60 tabs 01/29/24
amoxicillin 875 mg-potassium clavulanate 125 mg tablet 1 tab PO Q12 #4 tabs 01/29/24
lorazepam 0.5 mg tablet 0.5 mg PO [id number] PRN anxiety #10 tabs 01/29/24
oxycodone 5 mg tablet 5 mg PO Q4HPRN PRN severe pain #15 tabs 01/29/24
Home Medication Changes
Pending Results: No
Total time spent discharging patient (in min): 42
--- NOTE | 2024-01-29 11:11 | W.PN.CRS1 ---
Today's Communication / Plan
-
okay for d/c with po antibiotics
Assessment/Plan
-
63-year-old male with PMH of deafness s/p cochlear implants, previous neck abscesses who presents for increasing pain in the left buttock x 1 week; 2 to 3 days ago, the abscess opened and started draining; he went to an urgent care today, who sent
him to the ED; WBC 24, glucose 518, creatinine 1.0, Hb 14, afebrile but tachycardic to 120s, CT showing concern for Shilpa's
POD# 13 flex sig (anorectal mucosa healthy), I&D and debridement of posterior perineum, sent cultures
POD#14 debridement of perineal wound, opening of anterior perineum near (but not involving) base of scrotum; cultures sent
POD#9 flex sig (anorectal mucosa healthy), further perineal wound debridement
POD#7 flex sig (anorectal mucosa helathy), no further debridement, wound clean
1. Appreciate hospitalist
2. On a diabetic diet
3. Continue broad-spectrum IV antibiotics; follow-up cultures; appreciate ID. OR Cx 4/12 - ecoli and strep agalactiae, OR Cx 4/14 - GNR. WBC 12.4.
4. Pain control
5. Undiagnosed diabetes, cont insulin mgmt per primary
6. Increase dressing changes to BID, packing with kerlix (and PRN for stool contamination or saturation).
7. Okay for discharge today. Will be discharged with po antibiotics and po pain medication. He will need to follow up with Dr. Jones in 1 week from discharge for a wound check. Discussed with patient. Will be discharged with VN. Dressing changes dry
with kerilex twice a day.
Subjective Data
Procedure
01/19/2024- Exam under anesthesia, excision and debridement of necrotic tissue of the perineum
01/17/2024- Flexible sigmoidoscopy, exam under anesthesia, incision and drainage of left gluteal abscess, extensive debridement of necrotic tissue, pulse irrigation
Subjective Data
Date of Service: January 29, 2024
Patient states he feels well today. He has no complaints.
Objective Data
-
Vital Signs
Temp Pulse Resp BP Pulse Ox
98.5 F 79 16 115/62 97
01/29/24 07:50 01/29/24 07:50 01/29/24 07:50 01/29/24 07:50 01/29/24 07:50
Intake & Output
01/28/24 01/29/24 01/30/24
06:59 06:59 06:59
Intake Total 1080 / 1080 1560 / 1560
Output Total 600 / 600
Balance 480 / 480 1560 / 1560
Intake:
Oral fluids 1080 / 1080 1560 / 1560
Output:
Urine, Voided 600 / 600
Other:
Number of approximated MODERATE 2 3
amounts of urine
Lab Results
01/29/24 06:16
01/29/24 06:16
Physical Exam
-
General: No Acute Distress and AOx3
Abdomen: Soft, Non Distended and Non Tender
Skin: Warm and Dry
Wound: Granulating Well, Dressing Changed and Other (no active bleeding, no pus noted, dry)
--- NOTE | 2024-01-29 11:11 | CM ---
Reviewed the chart notes. Patient is for discharge to home today on VN service. Patient's spouse to provide transportation. CM continues to be available to patient/family and is monitoring medical plan for needs at discharge.
Plan: Discharge to home today with VN services.
[2024-01-29 11:20] VITALS: BP 116/83
--- NOTE | 2024-02-06 07:24 | OR.RPT ---
Operative Report
Operative Report
Patient Name: Ted Villalobos
: 1960
Date of Operation: 01/19/2024
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
Postoperative Diagnosis: Same
Procedure(s):
Exam under anesthesia, excisional debridement of skin (8 x 7 x 3 cm)
Surgeon(s):
Dr. Hernandez
Director Global Intelligence(s):
Dr. Avalos
Anesthesia: General
Estimated Blood Loss: 24 cc
Urine Output: None
Drains/Lines/Implants: None
Specimens:
Left gluteal tissue sent for culture
Indication for surgery:
This is a 61-year-old male who presented to our ED with a 7-day history of a worsening left gluteal pustule. He was diagnosed with necrotizing soft tissue of the perineum and underwent an emergent debridement for Shilpa's on 01/17/2024 with plans
for take-back and reassessment on postoperative day 1 versus day 2 depending on his clinical exam and course. Today on rounds his perineum look like there was further tracking anterior to the rectum up to the base of the scrotum. After discussion
of risks benefits and alternatives the patient elected and was consented for surgical reexploration. Given the potential involvement of the scrotum and penis urology was consulted to assist with this procedure.
Operative Findings: A linear incision was made in the midline of the perineum anterior to the anus to the scrotum. Necrotic subcutaneous tissue and pus was identified. All necrotic tissue was debrided until healthy bleeding tissue was encountered.
Dr. Avalos assisted with evaluation, but thankfully there was no evidence of involvement of the testes bilaterally or the penis. This incision was connected to the previous perirectal incision bilaterally using a Valery, sparing the anus and
sphincter complex. The new wound measured 8 x 7 x 3 cm. After generously curetting and irrigating the wound, hemostasis was achieved and the wound was packed with Betadine soaked kerlix followed by mesh underwear.
Details of the operation:
The patient was brought to the operating room and after induction of general anesthesia was placed in the dorsal lithotomy position with his previous buttock wound and over the edge of the bed. The area of the penis, scrotum and buttocks was
prepped with Betadine and then draped in the usual fashion. Timeout was performed, confirming the patient, procedure and that appropriate preoperative antibiotics and DVT prophylaxis were being administered. A linear incision was then made in the
midline of the perineum anterior to the anus all the way to the base of the scrotum. The underlying subcutaneous tissue particularly Bart's layer was necrotic appearing with dishwater coloured fluid and pus. Dr. Avalos was kind enough to assist
with this operation and assessment of the involved tissues. The infection did track somewhat anteriorly but thankfully spared the true scrotum. We then continued debriding tissue inferiorly to his previous debridement area taking all necrotic
tissue and leaving behind only healthy viable tissue. The anus was identified and preserved throughout. The tissues were then irrigated with Pulsavac and hemostasis was achieved. The wound measured 8 x 7 x 3 cm. The wound was then packed with
Betadine soaked kerlix followed by mesh underwear. All counts were correct at the end of procedure. The patient was then transferred back to the ICU for further monitoring and care with plans to return the OR in 1 to 2 days for further evaluation
and potential debridement.
I was the attending physician and performed the procedure with the assistance of Dr. Avalos who was instrumental in providing tension counter tension, assessment of the perineum and involvement of the scrotum and penis. I was present for all
portions of the case.
Giovanni Hernandez MD
== END 2024-01-29 13:01 | disposition home health service (06) | DRG 853 ==
LOC: 2 SOUTH 17:54
PROVIDERS: Nurse Practitioner Family; Nurse Practitioner Primary Care; Physician Assistant; Registered Nurse; ADMITTING PHYSICIAN Internal Medicine; CONSULT PHYSICIAN Student in an Organized Health Care Education/Training Program; CONSULT PHYSICIAN Surgery; EMERGENCY PHYSICIAN Emergency Medicine; OTHER PHYSICIAN Internal Medicine Critical Care Medicine
PROC: 0HB9XZZ Excision of Perineum Skin, External Approach (ICD-10-PCS; 2024-01-17)
PROC: 0H98XZX Drainage of Buttock Skin, External Approach, Diagnostic (ICD-10-PCS; 2024-01-17)
PROC: 0DJD8ZZ Inspection of Lower Intestinal Tract, Via Natural or Artificial Opening Endoscopic (ICD-10-PCS; 2024-01-17)
PROC: 0JBB0ZZ Excision of Perineum Subcutaneous Tissue and Fascia, Open Approach (ICD-10-PCS; 2024-01-20)
PROC: 0J9B30Z Drainage of Perineum Subcutaneous Tissue and Fascia with Drainage Device, Percutaneous Approach (ICD-10-PCS; 2024-01-22)
DX: A41.9 Sepsis, unspecified organism (principal); M72.6 Necrotizing fasciitis; L02.31 Cutaneous abscess of buttock; E87.1 Hypo-osmolality and hyponatremia; K52.1 Toxic gastroenteritis and colitis; E11.65 Type 2 diabetes mellitus with hyperglycemia; N49.3 Fournier gangrene; E87.6 Hypokalemia; T36.95XA Adverse effect of unspecified systemic antibiotic, initial encounter; E66.09 Other obesity due to excess calories; Z68.33 Body mass index [BMI] 33.0-33.9, adult; Z79.4 Long term (current) use of insulin
CPT/HCPCS: 88304; 71045; 72193; 80048; 80053; 80202; 82947; 82962; 83036; 83735; 85025; 85610; 85652; 85730; 86140; 86850; 86900; 86901; 87040; 87070; 87075; 87077; 87147; 87176; 87186; 87205; 94640; 96365; 96366; 96367; 99285; J2020; Q9967